=== PATIENT | male | born 1990 | race Caucasian/White ===

== ENCOUNTER 2023-11-05 09:33 | Outpatient (OUT) | payer OTHER, SELFPAY | END 2023-11-05 09:34 | disposition home or self-care (01) | LOC: SLEEP 09:35 | PROVIDERS: PCP Family Medicine; Visit Provider Family Medicine | DX: G47.33 Obstructive sleep apnea (adult) (pediatric) (principal) | CPT/HCPCS: 95806 ==

== ENCOUNTER 2023-12-25 10:48 | Outpatient (OUT) | payer OTHER, SELFPAY ==
[2023-12-25 11:34] LABS: Basophils Percent Auto 0.5 % (0.2-2.0); Eosinophils Absolute Auto 0.1 10^3/uL (0.0-0.7); Hematocrit 43.3 % (42.0-54.0); Hemoglobin 15.7 g/dL (14.0-18.0); Immature Granulocytes Abs Auto 0.02 10^3/uL (0.00-0.03); Immature Granulocytes Pct Auto 0.3 % (0.0-0.5); Lymphocytes Absolute Auto 1.9 10^3/uL (1.2-3.8); Lymphocytes Percent Auto 31.3 % (20.5-60.0); Mean Corpuscular HGB Conc 36.3 g/dL (29.9-35.2); Mean Corpuscular Hemoglobin 30.3 pg (25.9-34.0); Mean Corpuscular Volume 83.4 fL (80.0-94.0); Mean Platelet Volume 10.1 fL (9.5-13.5); Monocytes Absolute Auto 0.6 10^3/uL (0.3-0.8); Neutrophils Absolute Auto 3.5 10^3/uL (1.4-6.5); Neutrophils Percent Auto 56.9 % (43.0-75.0); Platelet Count 240 10^3/uL (150-450); Red Blood Count 5.19 10^6/uL (4.70-6.10); Red Cell Distribution Width 11.9 % (11.0-15.0); White Blood Count 6.1 10^3/uL (4.0-11.0)
[2023-12-25 12:49] LABS: Anion Gap 19.9; BUN Creatinine Ratio 8.6; Calcium 8.1 mg/dL (8.5-10.1); Carbon Dioxide 19.9 mmol/L (21.0-32.0); Chloride 98 mmol/L (98-107); Estimated GFR (African America >60 (>=60); Estimated GFR (Non-African Ame >60 (>=60); Glucose 381 mg/dL (74-106); Potassium 3.8 mmol/L (3.5-5.1); Sodium 134 mmol/L (136-145); Thyroid Stimulating Hormone 1.401 uIU/mL (0.358-3.740)
[2023-12-25 12:52] LABS: Microalbumin Urine Random <1.3 mg/dL (<=30.0)
== END 2023-12-25 10:49 | disposition home or self-care (01) ==
LOC: LAB 10:52
PROVIDERS: PCP Family Medicine; Visit Provider Family Medicine
DX: Z00.00 Encounter for general adult medical examination without abnormal findings (principal); E11.65 Type 2 diabetes mellitus with hyperglycemia; Z79.4 Long term (current) use of insulin
CPT/HCPCS: 36415; 80048; 80061; 80076; 82043; 84443; 85025

== ENCOUNTER 2023-12-30 23:17 | Inpatient (IN) | payer OTHER, SELFPAY ==
[2023-12-30 23:19] VITALS: BP 147/96; PULSE 126; O2SAT 94; BMI 47.9
[2023-12-30 23:37] VITALS: O2SAT 90
--- NOTE | 2023-12-30 23:37 | PC.NURSE ---
pt pulse ox low at 89-91% on room air. NC placed at 2L
[2023-12-30 23:39] VITALS: O2SAT 92
--- NOTE | 2023-12-30 23:41 | ED.GENADUL1 ---
HPI HPI - General Adult General Chief complaint: Abdominal Pain Stated complaint: other Time Seen by Provider: 12/30/23 23:35 Source: patient Mode of arrival: ambulance Limitations: no limitations History of Present Illness HPI narrative: patient presents complaining of abrupt onset of recurrent vomiting and diarrhea within the past hour. complains of diffuse abdominal cramping. He does not feel short of breath. Given zofran per Squad en route Onset (ago): hour(s) Related Data Home Medications ?Medication ?Instructions ?Recorded ?Confirmed aspirin 81 mg chewable tablet 1 tab PO DAILY 12/30/23 12/30/23 clomipramine 25 mg capsule 25 mg PO BEDTIME 12/30/23 12/30/23 insulin regular hum U-500 conc 500 1 - 20 unit continuous 12/30/23 12/31/23 unit/mL subcutaneous soln (Humulin subcutaneous infusion Q24H R U-500 (Concentrated) Insulin) metoprolol succinate 50 mg 50 mg PO DAILY 12/30/23 12/30/23 tablet,extended release 24 hr nabumetone 500 mg tablet 500 mg PO BID 12/30/23 12/31/23 atorvastatin 80 mg tablet 80 mg PO DAILY 12/31/23 12/31/23 fenofibrate 160 mg tablet 160 mg PO DAILY 12/31/23 12/31/23 Allergies Allergy/AdvReac Type Severity Reaction Status Date / Time No Known Drug Allergies Allergy Verified 12/30/23 23:19 Opioid HPI Opioid Management Most Recent Opioid Data: Last Pain Scale 4 12/31/23 18:55 Last Pain Assessment 12/31/23 17:52 Last MAR Pain Assessment 12/31/23 18:55 Last ORT Total Score 7 12/31/23 07:42 Last ORT Risk Category Moderate Risk 12/31/23 07:42 Ur Phencyclidine Scrn Negative (NEGATIVE) 12/31/23 05:49 Review of Systems ROS Status of ROS 10 or more systems reviewed and unremarkable except as noted in history and below [facility] Medical History High cholesterol ?E78.00 - Pure hypercholesterolemia, unspecified (ICD-10) Diabetes ?E11.9 - Type 2 diabetes mellitus without complications (ICD-10) Family History Other Family history of COPD (chronic obstructive pulmonary disease) Family history of diabetes mellitus Family history of hypertension Family history of myocardial infarction Family history of renal failure Social History Within the past year, how often did you have a drink containing alcohol: never Score interpretation: A score less than 4 is consistent with normal alcohol consumption. Known occupational exposures/hazards: No Highest level of school completed/degree received: 12th grade, no diploma Do you want help with school or training: No Exam Constitutional Vital Signs, click to edit/add: Last Vital Signs Temp 99.7 F 12/31/23 16:00 Pulse 103 H 12/31/23 17:52 Resp 20 12/31/23 16:00 BP 123/78 12/31/23 16:00 Pulse Ox 93 L 12/31/23 16:00 O2 Del Method Room Air 12/31/23 16:00 O2 Flow Rate 2 12/31/23 09:05 Common normals: no apparent distress, average body habitus, oriented x3, no limitations, healthy appearing and alert HENSC Common normals: normocephalic and head/scalp atraumatic Respiratory Common normals: normal respiratory effort, no retractions, no use of accessory muscles and clear to auscultation bilaterally Cardio Common normals: regular rate, regular rhythm, S1 normal heart sound and S2 normal heart sound GI Common normals: Normal to inspection, nondistended, normoactive bowel sounds present, soft to palpation and non-tender Extremity Common normals: normal to inspection and full ROM Neuro Common normals: oriented x3, CN's II-XII intact bilaterally, moves all extremities and no focal motor deficits Psych Appearance: grossly normal Course Vital Signs Vital signs: Vital Signs Pulse Rate 126 H 12/30/23 23:19 Respiratory Rate 17 12/30/23 23:19 Blood Pressure 147/96 H 12/30/23 23:19 Pulse Oximetry 94 L 12/30/23 23:19 Oxygen Delivery Method Room Air 12/30/23 23:19 Temperature 99.7 F 12/31/23 16:00 Pulse Rate 103 H 12/31/23 17:52 Respiratory Rate 20 12/31/23 16:00 Blood Pressure 123/78 12/31/23 16:00 Pulse Oximetry 93 L 12/31/23 16:00 Oxygen Delivery Method Room Air 12/31/23 16:00 Oxygen Delivery Flow Rate 2 12/31/23 09:05 Medical Decision Making MDM Narrative Medical decision making narrative: IDDM patient presents with acute onset of vomiting and diarrhea. Arrives to the Er via squad diaphoretic. Nausea improved initially with zofran. Patient started vomiting again and was treated with Reglan and Benadryl. He was able to relax and felt better. lactic acid elevated and he was tachycardic. lactic improved with hydration but tachycardia continues. Gastro occult neg. Influenza neg.. serial troponin neg. Patient rechecked and stated he felt somewhat better but clinically his vital signs had not improved. CTs abdomen and chest ordered and without acute findings. Labs without evidence of DKA he remains tachycardic even at rest. When he stands to use the urinal at the bed side his heart rate increases to 160s and on the monitor he appears to be in SVT. once he lays back down he returns to sinus tach 140s. HIs PH is normal Discussed with Dr Alcocer and patient accepted for admission. He is also requesting drug screen Lab Data Labs: Lab Results 12/31/23 12/31/23 12/31/23 Range/Units 00:15 00:21 00:24 WBC 11.0 (4.0-11.0) 10^3/uL RBC 6.08 (4.70-6.10) 10^6/uL Hgb 17.7 (14.0-18.0) g/dL Hct 51.7 (42.0-54.0) % MCV 85.0 (80.0-94.0) fL MCH 29.1 (25.9-34.0) pg MCHC 34.2 (29.9-35.2) g/dL RDW 11.9 (11.0-15.0) % Plt Count 235 (150-450) 10^3/uL MPV 10.0 (9.5-13.5) fL Neut % (Auto) 84.8 H (43.0-75.0) % Lymph % (Auto) 6.5 L (20.5-60.0) % [place] % (Auto) 7.3 (1.7-12.0) % Eos % (Auto) 0.7 L (0.9-7.0) % Baso % (Auto) 0.5 (0.2-2.0) % Neut # (Auto) 9.4 H (1.4-6.5) 10^3/uL Lymph # (Auto) 0.7 L (1.2-3.8) 10^3/uL [place] # (Auto) 0.8 (0.3-0.8) 10^3/uL Eos # (Auto) 0.1 (0.0-0.7) 10^3/uL Baso # (Auto) 0.1 (0.0-0.1) 10^3/uL Abs Immat Gran (auto) 0.02 (0.00-0.03) 10^3/uL Imm/Tot Granulo (auto) 0.2 (0.0-0.5) % VBG pH (7.330-7.430) VBG pCO2 (40.0-52.0) mmHg Sodium 137 (136-145) mmol/L Potassium 3.9 (3.5-5.1) mmol/L Chloride 99 (98-107) mmol/L Carbon Dioxide 25.2 (21.0-32.0) mmol/L Anion Gap 16.7 BUN 15.0 (7.0-18.0) mg/dL Creatinine 0.99 (0.70-1.30) mg/dL Est GFR ( Amer) >60 (>=60) Est GFR (Non-Af Amer) >60 (>=60) BUN/Creatinine Ratio 15.2 Glucose 349 H (74-106) mg/dL Lactate 2.6 H* (0.4-2.0) mmol/L Calcium 9.1 (8.5-10.1) mg/dL Total Bilirubin 0.6 (0.2-1.0) mg/dL AST 11 L (15-37) U/L ALT 32 (16-63) U/L Alkaline Phosphatase 97 (46-116) U/L Troponin I High Sens <4.0 L (4.0-76.1) pg/mL NT-Pro-B Natriuret Pep (<=450.0) pg/mL Total Protein 6.9 (6.4-8.2) g/dL Albumin 3.7 (3.4-5.0) g/dL Globulin 3.2 g/dL Albumin/Globulin Ratio 1.2 Lipase 26.0 (16.0-77.0) U/L Thyroxine (T4) (4.50-12.10) ug/dL Urine Color (YELLOW) Urine Clarity (CLEAR) Urine pH (5.0-9.0) Ur Specific [place] (1.005-1.025) Urine Protein (NEG/TRACE) mg/dL Urine Glucose (UA) (NEGATIVE) mg/dL Urine Ketones (NEGATIVE) mg/dL Urine Occult Blood (NEGATIVE) Urine Nitrite (NEGATIVE) Urine Bilirubin (NEGATIVE) Urine Urobilinogen (0.2-1.0) EU/dL Ur Leukocyte Esterase (NEGATIVE) Gastric Fluid pH 4 Gastric Occult Blood Negative Urine Opiates Screen (NEGATIVE) Ur Buprenorphine Scrn (NEGATIVE) Ur Oxycodone Screen (NEGATIVE) Urine Methadone Screen (NEGATIVE) Ur Barbiturates Screen (NEGATIVE) U Tricyclic Antidepress (NEGATIVE) Ur Phencyclidine Scrn (NEGATIVE) Ur Amphetamines Screen (NEGATIVE) U Methamphetamines Scrn (NEGATIVE) U Benzodiazepines Scrn (NEGATIVE) Urine Cocaine Screen (NEGATIVE) U Cannabinoids Screen (NEGATIVE) Influenza Type A Ag Negative Influenza Type B Ag Negative POC Glucose (74-106) mg/dL 12/31/23 12/31/23 12/31/23 Range/Units 03:39 03:44 04:22 WBC (4.0-11.0) 10^3/uL RBC (4.70-6.10) 10^6/uL Hgb (14.0-18.0) g/dL Hct (42.0-54.0) % MCV (80.0-94.0) fL MCH (25.9-34.0) pg MCHC (29.9-35.2) g/dL RDW (11.0-15.0) % Plt Count (150-450) 10^3/uL MPV (9.5-13.5) fL Neut % (Auto) (43.0-75.0) % Lymph % (Auto) (20.5-60.0) % [place] % (Auto) (1.7-12.0) % Eos % (Auto) (0.9-7.0) % Baso % (Auto) (0.2-2.0) % Neut # (Auto) (1.4-6.5) 10^3/uL Lymph # (Auto) (1.2-3.8) 10^3/uL [place] # (Auto) (0.3-0.8) 10^3/uL Eos # (Auto) (0.0-0.7) 10^3/uL Baso # (Auto) (0.0-0.1) 10^3/uL Abs Immat Gran (auto) (0.00-0.03) 10^3/uL Imm/Tot Granulo (auto) (0.0-0.5) % VBG pH (7.330-7.430) VBG pCO2 (40.0-52.0) mmHg Sodium (136-145) mmol/L Potassium (3.5-5.1) mmol/L Chloride (98-107) mmol/L Carbon Dioxide (21.0-32.0) mmol/L Anion Gap BUN (7.0-18.0) mg/dL Creatinine (0.70-1.30) mg/dL Est GFR ( Amer) (>=60) Est GFR (Non-Af Amer) (>=60) BUN/Creatinine Ratio Glucose (74-106) mg/dL Lactate 1.5 (0.4-2.0) mmol/L Calcium (8.5-10.1) mg/dL Total Bilirubin (0.2-1.0) mg/dL AST (15-37) U/L ALT (16-63) U/L Alkaline Phosphatase (46-116) U/L Troponin I High Sens 5.2 (4.0-76.1) pg/mL NT-Pro-B Natriuret Pep (<=450.0) pg/mL Total Protein (6.4-8.2) g/dL Albumin (3.4-5.0) g/dL Globulin g/dL Albumin/Globulin Ratio Lipase (16.0-77.0) U/L Thyroxine (T4) (4.50-12.10) ug/dL Urine Color (YELLOW) Urine Clarity (CLEAR) Urine pH (5.0-9.0) Ur Specific [place] (1.005-1.025) Urine Protein (NEG/TRACE) mg/dL Urine Glucose (UA) (NEGATIVE) mg/dL Urine Ketones (NEGATIVE) mg/dL Urine Occult Blood (NEGATIVE) Urine Nitrite (NEGATIVE) Urine Bilirubin (NEGATIVE) Urine Urobilinogen (0.2-1.0) EU/dL Ur Leukocyte Esterase (NEGATIVE) Gastric Fluid pH Gastric Occult Blood Urine Opiates Screen (NEGATIVE) Ur Buprenorphine Scrn (NEGATIVE) Ur Oxycodone Screen (NEGATIVE) Urine Methadone Screen (NEGATIVE) Ur Barbiturates Screen (NEGATIVE) U Tricyclic Antidepress (NEGATIVE) Ur Phencyclidine Scrn (NEGATIVE) Ur Amphetamines Screen (NEGATIVE) U Methamphetamines Scrn (NEGATIVE) U Benzodiazepines Scrn (NEGATIVE) Urine Cocaine Screen (NEGATIVE) U Cannabinoids Screen (NEGATIVE) Influenza Type A Ag Influenza Type B Ag POC Glucose 394 H (74-106) mg/dL 12/31/23 12/31/23 12/31/23 Range/Units 05:40 05:42 05:49 WBC (4.0-11.0) 10^3/uL RBC (4.70-6.10) 10^6/uL Hgb (14.0-18.0) g/dL Hct (42.0-54.0) % MCV (80.0-94.0) fL MCH (25.9-34.0) pg MCHC (29.9-35.2) g/dL RDW (11.0-15.0) % Plt Count (150-450) 10^3/uL MPV (9.5-13.5) fL Neut % (Auto) (43.0-75.0) % Lymph % (Auto) (20.5-60.0) % [place] % (Auto) (1.7-12.0) % Eos % (Auto) (0.9-7.0) % Baso % (Auto) (0.2-2.0) % Neut # (Auto) (1.4-6.5) 10^3/uL Lymph # (Auto) (1.2-3.8) 10^3/uL [place] # (Auto) (0.3-0.8) 10^3/uL Eos # (Auto) (0.0-0.7) 10^3/uL Baso # (Auto) (0.0-0.1) 10^3/uL Abs Immat Gran (auto) (0.00-0.03) 10^3/uL Imm/Tot Granulo (auto) (0.0-0.5) % VBG pH 7.352 (7.330-7.430) VBG pCO2 44.4 (40.0-52.0) mmHg Sodium (136-145) mmol/L Potassium (3.5-5.1) mmol/L Chloride (98-107) mmol/L Carbon Dioxide (21.0-32.0) mmol/L Anion Gap BUN (7.0-18.0) mg/dL Creatinine (0.70-1.30) mg/dL Est GFR ( Amer) (>=60) Est GFR (Non-Af Amer) (>=60) BUN/Creatinine Ratio Glucose (74-106) mg/dL Lactate (0.4-2.0) mmol/L Calcium (8.5-10.1) mg/dL Total Bilirubin (0.2-1.0) mg/dL AST (15-37) U/L ALT (16-63) U/L Alkaline Phosphatase (46-116) U/L Troponin I High Sens 4.7 (4.0-76.1) pg/mL NT-Pro-B Natriuret Pep 24.0 (<=450.0) pg/mL Total Protein (6.4-8.2) g/dL Albumin (3.4-5.0) g/dL Globulin g/dL Albumin/Globulin Ratio Lipase (16.0-77.0) U/L Thyroxine (T4) 6.40 (4.50-12.10) ug/dL Urine Color Lt. yellow (YELLOW) Urine Clarity Clear (CLEAR) Urine pH 5.0 (5.0-9.0) Ur Specific [place] 1.010 (1.005-1.025) Urine Protein Negative (NEG/TRACE) mg/dL Urine Glucose (UA) >=1000 A (NEGATIVE) mg/dL Urine Ketones 40 A (NEGATIVE) mg/dL Urine Occult Blood Negative (NEGATIVE) Urine Nitrite Negative (NEGATIVE) Urine Bilirubin Negative (NEGATIVE) Urine Urobilinogen 0.2 (0.2-1.0) EU/dL Ur Leukocyte Esterase Negative (NEGATIVE) Gastric Fluid pH Gastric Occult Blood Urine Opiates Screen Negative (NEGATIVE) Ur Buprenorphine Scrn Negative (NEGATIVE) Ur Oxycodone Screen Negative (NEGATIVE) Urine Methadone Screen Negative (NEGATIVE) Ur Barbiturates Screen Negative (NEGATIVE) U Tricyclic Antidepress Negative (NEGATIVE) Ur Phencyclidine Scrn Negative (NEGATIVE) Ur Amphetamines Screen Negative (NEGATIVE) U Methamphetamines Scrn Negative (NEGATIVE) U Benzodiazepines Scrn Negative (NEGATIVE) Urine Cocaine Screen Negative (NEGATIVE) U Cannabinoids Screen Negative (NEGATIVE) Influenza Type A Ag Influenza Type B Ag POC Glucose (74-106) mg/dL 12/31/23 12/31/23 12/31/23 Range/Units 09:31 11:20 11:29 WBC (4.0-11.0) 10^3/uL RBC (4.70-6.10) 10^6/uL Hgb (14.0-18.0) g/dL Hct (42.0-54.0) % MCV (80.0-94.0) fL MCH (25.9-34.0) pg MCHC (29.9-35.2) g/dL RDW (11.0-15.0) % Plt Count (150-450) 10^3/uL MPV (9.5-13.5) fL Neut % (Auto) (43.0-75.0) % Lymph % (Auto) (20.5-60.0) % [place] % (Auto) (1.7-12.0) % Eos % (Auto) (0.9-7.0) % Baso % (Auto) (0.2-2.0) % Neut # (Auto) (1.4-6.5) 10^3/uL Lymph # (Auto) (1.2-3.8) 10^3/uL [place] # (Auto) (0.3-0.8) 10^3/uL Eos # (Auto) (0.0-0.7) 10^3/uL Baso # (Auto) (0.0-0.1) 10^3/uL Abs Immat Gran (auto) (0.00-0.03) 10^3/uL Imm/Tot Granulo (auto) (0.0-0.5) % VBG pH (7.330-7.430) VBG pCO2 (40.0-52.0) mmHg Sodium (136-145) mmol/L Potassium (3.5-5.1) mmol/L Chloride (98-107) mmol/L Carbon Dioxide (21.0-32.0) mmol/L Anion Gap BUN (7.0-18.0) mg/dL Creatinine (0.70-1.30) mg/dL Est GFR ( Amer) (>=60) Est GFR (Non-Af Amer) (>=60) BUN/Creatinine Ratio Glucose (74-106) mg/dL Lactate (0.4-2.0) mmol/L Calcium (8.5-10.1) mg/dL Total Bilirubin (0.2-1.0) mg/dL AST (15-37) U/L ALT (16-63) U/L Alkaline Phosphatase (46-116) U/L Troponin I High Sens 4.8 (4.0-76.1) pg/mL NT-Pro-B Natriuret Pep (<=450.0) pg/mL Total Protein (6.4-8.2) g/dL Albumin (3.4-5.0) g/dL Globulin g/dL Albumin/Globulin Ratio Lipase (16.0-77.0) U/L Thyroxine (T4) (4.50-12.10) ug/dL Urine Color (YELLOW) Urine Clarity (CLEAR) Urine pH (5.0-9.0) Ur Specific [place] (1.005-1.025) Urine Protein (NEG/TRACE) mg/dL Urine Glucose (UA) (NEGATIVE) mg/dL Urine Ketones (NEGATIVE) mg/dL Urine Occult Blood (NEGATIVE) Urine Nitrite (NEGATIVE) Urine Bilirubin (NEGATIVE) Urine Urobilinogen (0.2-1.0) EU/dL Ur Leukocyte Esterase (NEGATIVE) Gastric Fluid pH Gastric Occult Blood Urine Opiates Screen (NEGATIVE) Ur Buprenorphine Scrn (NEGATIVE) Ur Oxycodone Screen (NEGATIVE) Urine Methadone Screen (NEGATIVE) Ur Barbiturates Screen (NEGATIVE) U Tricyclic Antidepress (NEGATIVE) Ur Phencyclidine Scrn (NEGATIVE) Ur Amphetamines Screen (NEGATIVE) U Methamphetamines Scrn (NEGATIVE) U Benzodiazepines Scrn (NEGATIVE) Urine Cocaine Screen (NEGATIVE) U Cannabinoids Screen (NEGATIVE) Influenza Type A Ag Influenza Type B Ag POC Glucose 328 H 334 H (74-106) mg/dL Imaging Data CT scan - abdomen: Radiologist's impression: ITS Impressions Chest X-Ray 12/31/23 00:30 IMPRESSION: No acute abnormality. Electronically authenticated by: ARLETH ORTIZ Date: 12/31/2023 02:16 Abdomen/Pelvis CTA 12/31/23 04:20 IMPRESSION: Negative study. Electronically authenticated by: ARLETH ORTIZ Date: 12/31/2023 05:22 Chest CTA 12/31/23 04:20 IMPRESSION: Negative study. Electronically authenticated by: ARLETH ORTIZ Date: 12/31/2023 05:22 Critical Care Time Critical Care Time Total Critical Care Time: 60 Discharge Plan Discharge Chief Complaint: Abdominal Pain Clinical Impression: Gastroenteritis, Tachycardia, Hyperglycemia Patient Disposition: Admitted as Observation Discharge Date/Time: 12/31/23 07:25
[2023-12-30] MEDS: 0.9 % SODIUM CHLORIDE 1,000 ML 999 ML IV (23:49)
[2023-12-31] VITALS (47 sets, daily range): BP systolic 94–134; BP diastolic 60–84; PULSE 55–143; TEMP 36.6–37.8; O2SAT 89–97; BMI 49.0
--- NOTE | 2023-12-31 00:20 | PC.NURSE ---
gastric cult obtained, pt diaphoretic and placed a cool wash cloth on forehead
[2023-12-31] MEDS: DIPHENHYDRAMINE HCL 50 MG/ML (1ML) VIAL IV (00:25)
[2023-12-31] MEDS: METOCLOPRAMIDE HCL 10 MG/2 ML VIAL IVP (00:25)
--- NOTE | 2023-12-31 00:30 | XR_ITS ---
The [address] [address] Patient Name: KEYANA ZAMARRIPA MRN: [id number] date: 1990 Sex: M Assigned Patient Location: ER Current Patient Location: ER Accession/Order Number: [id number] Exam Date: 12/31/2023 01:00 Report Date: 12/31/2023 02:16 At the request of: DIAN SALOMON Procedure: XR chest 2V CLINICAL HISTORY: Short of breath. COMPARISON: None. FINDINGS: PA and lateral views of the chest obtained. Cardiomediastinal silhouette is normal. Lungs are clear, no evidence of infiltrate or pleural effusion. No suspicious nodule or mass. No evidence of pneumothorax. No acute bony abnormality. XR/XR chest 2V IMPRESSION: No acute abnormality. Electronically authenticated by: ARLETH ORTIZ Date: 12/31/2023 02:16
[2023-12-31 00:41] LABS: Internal Control Within Normal Limits; Occult Blood Gastric Fluid NEGATIVE; pH Gastric Fluid 4
[2023-12-31 00:43] LABS: Basophils Absolute Auto 0.1 10^3/uL (0.0-0.1); Basophils Percent Auto 0.5 % (0.2-2.0); Eosinophils Absolute Auto 0.1 10^3/uL (0.0-0.7); Eosinophils Percent Auto 0.7 % (0.9-7.0); Hematocrit 51.7 % (42.0-54.0); Hemoglobin 17.7 g/dL (14.0-18.0); Immature Granulocytes Abs Auto 0.02 10^3/uL (0.00-0.03); Immature Granulocytes Pct Auto 0.2 % (0.0-0.5); Lymphocytes Absolute Auto 0.7 10^3/uL (1.2-3.8); Lymphocytes Percent Auto 6.5 % (20.5-60.0); Mean Corpuscular HGB Conc 34.2 g/dL (29.9-35.2); Mean Corpuscular Hemoglobin 29.1 pg (25.9-34.0); Monocytes Absolute Auto 0.8 10^3/uL (0.3-0.8); Monocytes Percent Auto 7.3 % (1.7-12.0); Neutrophils Absolute Auto 9.4 10^3/uL (1.4-6.5); Neutrophils Percent Auto 84.8 % (43.0-75.0); Platelet Count 235 10^3/uL (150-450); Red Blood Count 6.08 10^6/uL (4.70-6.10); Red Cell Distribution Width 11.9 % (11.0-15.0)
--- NOTE | 2023-12-31 00:50 | ECG_ITS ---
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
[2023-12-31 01:04] LABS: Influenza Virus A Antigen Negative; Influenza Virus B Antigen Negative; Internal Control Within Normal Limits
[2023-12-31 01:06] LABS: Alanine Aminotransferase 32 U/L (16-63); Albumin Globulin Ratio 1.2; Albumin Level 3.7 g/dL (3.4-5.0); Alkaline Phosphatase 97 U/L (46-116); Anion Gap 16.7; Aspartate Amino Transferase 11 U/L (15-37); BUN Creatinine Ratio 15.2; Bilirubin Total 0.6 mg/dL (0.2-1.0); Calcium 9.1 mg/dL (8.5-10.1); Carbon Dioxide 25.2 mmol/L (21.0-32.0); Chloride 99 mmol/L (98-107); Estimated GFR (African America >60 (>=60); Estimated GFR (Non-African Ame >60 (>=60); Globulin 3.2 g/dL; Glucose 349 mg/dL (74-106); Potassium 3.9 mmol/L (3.5-5.1); Sodium 137 mmol/L (136-145); Total Protein 6.9 g/dL (6.4-8.2); Troponin I High Sensitivity <4.0 pg/mL (4.0-76.1)
[2023-12-31 01:07] LABS: Lactate/Lactic Acid 2.6 mmol/L (0.4-2.0)
[2023-12-31] MEDS: 0.9 % SODIUM CHLORIDE 1,000 ML 999 ML IV ×3 (01:42→06:27)
--- NOTE | 2023-12-31 02:48 | PC.NURSE ---
O2 turned off and will continue to monitor
[2023-12-31 03:45] LABS: Glucometer 394 mg/dL (74-106)
[2023-12-31 04:06] LABS: Lactate/Lactic Acid 1.5 mmol/L (0.4-2.0)
--- NOTE | 2023-12-31 04:20 | CT_ITS ---
The [address] [address] Patient Name: KEYANA ZAMARRIPA MRN: [id number] date: 1990 Sex: M Assigned Patient Location: ED.MAIN Current Patient Location: ER Accession/Order Number: [id number] Exam Date: 12/31/2023 04:30 Report Date: 12/31/2023 05:22 At the request of: DIAN SALOMON Procedure: CT angio abdomen pelvis .EXAM: CT angio chest, CT angio abdomen pelvis HISTORY: Short of breath. COMPARISON: Chest radiograph, today. TECHNIQUE: CTA of the chest, abdomen and pelvis with IV contrast. FINDINGS: There is no axillary or mediastinal thoracic lymphadenopathy. Normal heart size. Aorta is normal in course and caliber. No filling defects in the pulmonary arteries. Lungs are clear. No infiltrate or effusion. No suspicious pulmonary nodule. No adrenal mass or retroperitoneal lymphadenopathy. No obstructive uropathy. Renal enhancement is symmetrical. The abdominal aorta is normal in course and caliber. SMA, NAEL, celiac arteries are patent. Renal arteries are patent. No bowel obstruction or inflammation. No pneumatosis or pneumoperitoneum. Normal appendix. No pelvic adenopathy or ascites. Prostate and bladder are age-appropriate. Thoracic and lumbar alignment is normal. No significant degenerative changes. CT/CT angio abdomen pelvis IMPRESSION: Negative study. Electronically authenticated by: ARLETH ORTIZ Date: 12/31/2023 05:22
--- NOTE | 2023-12-31 04:20 | CT_ITS ---
The [address] [address] Patient Name: KEYANA ZAMARRIPA MRN: [id number] date: 1990 Sex: M Assigned Patient Location: ED.MAIN Current Patient Location: ER Accession/Order Number: [id number] Exam Date: 12/31/2023 04:30 Report Date: 12/31/2023 05:22 At the request of: DIAN SALOMON Procedure: CT angio chest .EXAM: CT angio chest, CT angio abdomen pelvis HISTORY: Short of breath. COMPARISON: Chest radiograph, today. TECHNIQUE: CTA of the chest, abdomen and pelvis with IV contrast. FINDINGS: There is no axillary or mediastinal thoracic lymphadenopathy. Normal heart size. Aorta is normal in course and caliber. No filling defects in the pulmonary arteries. Lungs are clear. No infiltrate or effusion. No suspicious pulmonary nodule. No adrenal mass or retroperitoneal lymphadenopathy. No obstructive uropathy. Renal enhancement is symmetrical. The abdominal aorta is normal in course and caliber. SMA, NAEL, celiac arteries are patent. Renal arteries are patent. No bowel obstruction or inflammation. No pneumatosis or pneumoperitoneum. Normal appendix. No pelvic adenopathy or ascites. Prostate and bladder are age-appropriate. Thoracic and lumbar alignment is normal. No significant degenerative changes. CT/CT angio chest IMPRESSION: Negative study. Electronically authenticated by: ARLETH ORTIZ Date: 12/31/2023 05:22
[2023-12-31 04:45] LABS: Troponin I High Sensitivity 5.2 pg/mL (4.0-76.1)
--- NOTE | 2023-12-31 05:50 | ECG_ITS ---
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
[2023-12-31 05:55] LABS: PCO2 VBG 44.4 mmHg (40.0-52.0); pH VBG 7.352 (7.330-7.430)
[2023-12-31 06:09] LABS: Bilirubin Urine NEGATIVE (NEGATIVE); Blood Urine NEGATIVE (NEGATIVE); Clarity Urine CLEAR (CLEAR); Color Urine LT. YELLOW (YELLOW); Glucose Urine UA >=1000 mg/dL (NEGATIVE); Ketones Urine 40 mg/dL (NEGATIVE); Leukocyte Esterase Urine NEGATIVE (NEGATIVE); Nitrite Urine NEGATIVE (NEGATIVE); Protein Urine NEGATIVE (NEG/TRACE); Urobilinogen Urine 0.2 EU/dL (0.2-1.0)
[2023-12-31 06:13] LABS: Urine Microscopic Indicated NO
[2023-12-31 06:19] LABS: Amphetamine Screen Urine NEGATIVE (NEGATIVE); Barbiturates Screen Urine NEGATIVE (NEGATIVE); Benzodiazepines Screen Urine NEGATIVE (NEGATIVE); Buprenorphine Screen Urine NEGATIVE (NEGATIVE); Cannabinoid Screen Urine NEGATIVE (NEGATIVE); Cocaine Screen Urine NEGATIVE (NEGATIVE); Methadone Screen Urine NEGATIVE (NEGATIVE); Methamphetamines Screen Urine NEGATIVE (NEGATIVE); Opiate Screen Urine NEGATIVE (NEGATIVE); Oxycodone Screen Urine NEGATIVE (NEGATIVE); Phencyclidine Screen Urine NEGATIVE (NEGATIVE); Tricyclic Antidepressant Urine NEGATIVE (NEGATIVE)
[2023-12-31 09:02] LABS: Troponin I High Sensitivity 4.7 pg/mL (4.0-76.1)
[2023-12-31] MEDS: LEVOFLOXACIN IN DEXTROSE 5 % 750 MG/150 ML IV.SOLN 100 MG IV (09:17)
[2023-12-31] MEDS: 0.9 % SODIUM CHLORIDE 1,000 ML 125 ML IV ×3 (09:17→23:53)
[2023-12-31 09:32] LABS: Glucometer 328 mg/dL (74-106)
[2023-12-31] MEDS: INSULIN ASPART 300 UNIT/3 ML PEN SUBQ ×3 (09:39→16:39)
--- NOTE | 2023-12-31 10:07 | CA_ITS ---
Patient Name: KEYANA ZAMARRIPA MR#: [id number] : 1990 Exam Date: 12/31/2023 Ordering Doctor: DR GAUTAM CARDONA . ECHOCARDIOGRAM REPORT PROCEDURE: CA ECHO DOPPLER COMPLETE INDICATIONS: Tachycardia COMPARISON: None. DESCRIPTION: COMPLETE ECHOCARDIOGRAM Real-time transthoracic echocardiography with 2D, M-mode, spectral and color flow Doppler performed. QUALITY: Technical quality was adequate. LEFT VENTRICLE: Normal chamber size. Mild concentric left ventricular hypertrophy. Global left ventricular systolic function is normal. LV EF: Visual estimation of left ventricular ejection fraction is 65%. DIASTOLIC: Normal diastolic function. ATRIAL SEPTUM: LEFT ATRIUM: Normal chamber size. RIGHT ATRIUM: Mild dilatation. RIGHT VENTRICLE: Normal chamber size. Normal right ventricular systolic function. TRICUSPID VALVE: Normal mobility and thickness. No stenosis with trivial regurgitation. No evidence of pulmonary hypertension. RVSP 31 mmHg MITRAL VALVE: Normal mobility and thickness. No evidence of mitral valve stenosis. There is no mitral annular calcification. Trivial mitral regurgitation. AORTIC VALVE: Normal trileaflet appearance. No visible sclerosis. Normal leaflet mobility. No evidence of aortic valve stenosis. No aortic regurgitation. AORTIC ROOT: Normal diameter and appearance. PULMONIC VALVE: Normal thickness and mobility. Normal with No regurgitation. PERICARDIUM: No evidence of pericardial effusion. IVC: Collapses with inspirations. Normal size. PLEURA: CONCLUSION: 1. Mild concentric left ventricular hypertrophy with normal systolic function. LVEF is estimated at 65%. 2. Normal right ventricular size and systolic function. 3. Normal diastolic function. 4. No significant valvular dysfunction. 5. Normal right-sided pressures. Adult Echocardiography Procedure Report Left Ventricle LVEDD (3.7 - 5.6 cm): 4.72 cm LVESD (2.2 - 4.0 cm): 3.01 cm LVIVS thickness (0.6 - 1.2 cm): 1.29 cm LVPW thickness (0.5 - 1.0 cm): 1.41 cm e': 0.13 m/s E - e': 7.03 LVOT Max Gradient: 5.14 mm[Hg], 5.73 mm[Hg], 5.14 mm[Hg] LVOT Area (cm2): 1.15 m/s Peak Velocity (LVOT): 1.13 m/s, 1.20 m/s, 1.13 m/s Mean Velocity (LVOT): 0.83 m/s LVOT Diameter 2.12 cm Left Ventricular Ejection Fraction: 65 % Left Atrium LA Volume Index (2D A2C): 17.15 ml/m2 Left Atrium Systolic Dimension: 3.83 cm Mitral Valve MV E to A Ratio: 1.19 Mitral Valve A-Wave Peak Velocity: 0.78 m/s Mitral Valve E-Wave Peak Velocity: 0.92 m/s Right Ventricle RV Internal Diastolic Dimension: 3.73 cm Aorta AO Root Diam: 3.34 cm Ascending Ao Diam: 3.04 cm Aortic Valve AoV Area (Peak Colin): 3.24 cm2, 3.43 cm2, 3.24 cm2, 3.07 cm2 AoV Area (VTI): 3.05 cm2, 3.34 cm2, 3.20 cm2, 2.65 cm2 Peak Velocity(Antegrade Flow): 1.16 m/s, 1.30 m/s, 1.30 m/s Peak Gradient(Antegrade Flow): 5.38 mm[Hg], 6.72 mm[Hg], 6.72 mm[Hg] Mean Velocity(Antegrade Flow): 0.90 m/s, 0.91 m/s, 0.93 m/s Mean Gradient(Antegrade Flow): 3.50 mm[Hg], 3.68 mm[Hg], 3.83 mm[Hg] Velocity Time Integral: 20.04 cm, 21.05 cm, 22.74 cm Tricuspid Valve Peak Velocity (Regurgitant Flow): 1.87 m/s, 2.65 m/s Pulmonic Valve Mean Gradient: 3.96 mm[Hg], 4.26 mm[Hg], 4.02 mm[Hg] Mean Velocity: 0.93 m/s, 0.97 m/s, 0.94 m/s Peak Velocity: 1.35 m/s Peak Gradient: 7.33 mm[Hg], 7.81 mm[Hg], 6.88 mm[Hg] Right Atrium Right Atrium Systolic Pressure: 47.64 ml, 47.64 ml Dictated by: Hugh Samuel M.D. on 12/31/2023 at 18:56 Approved by: Hugh Samuel M.D. on 12/31/2023 at 18:59
--- NOTE | 2023-12-31 10:08 | P.HP_ITS ---
HPI H&P: HPI History of Present Illness Chief complaint: other Narrative: Patient presented to the emergency room with increasing weakness and some dyspnea, palpitations. In ER found to have sinus tachycardia, workup done extensively did not really show any etiology of the reviewed mild dehydration secondary to uncontrolled diabetes mellitus. When I saw the patient up in the intensive care unit, very lethargic, arousable and answers questions appropriately. Denies any other URI symptoms. States has been eating well up until last evening when the symptoms started. On laboratory evaluation does have a left shift in his CBC. Opioid HPI Opioid Management Most Recent Opioid Data: Last Pain Scale 7 12/31/23 11:27 Last Pain Assessment 12/31/23 11:00 Last MAR Pain Assessment 12/31/23 11:27 Last ORT Total Score 7 12/31/23 07:42 Last ORT Risk Category Moderate Risk 12/31/23 07:42 Ur Phencyclidine Scrn Negative (NEGATIVE) 12/31/23 05:49 Review of Systems ROS Status of ROS 10 or more systems reviewed and unremark able except as noted in history and below [facility] Medical History High cholesterol ?E78.00 - Pure hypercholesterolemia, unspecified (ICD-10) Diabetes ?E11.9 - Type 2 diabetes mellitus without complications (ICD-10) Family History (Updated 12/31/23 @ 08:26 by Mary Grant RN) Other Family history of COPD (chronic obstructive pulmonary disease) Family history of diabetes mellitus Family history of hypertension Family history of myocardial infarction Family history of renal failure Social History (Updated 12/31/23 @ 08:25 by Mary Grant RN) Within the past year, how often did you have a drink containing alcohol: never Score interpretation: A score less than 4 is consistent with normal alcohol consumption. Known occupational exposures/hazards: No Highest level of school completed/degree received: 12th grade, no diploma Do you want help with school or training: No Meds Home Medications and Allergies Home Medications ?Medication ?Instructions ?Recorded ?Confirmed ?Type aspirin 81 mg chewable tablet 1 tab PO DAILY 12/30/23 12/30/23 History clomipramine 25 mg capsule 25 mg PO BEDTIME 12/30/23 12/30/23 History insulin regular hum U-500 conc 500 1 - 20 unit continuous 12/30/23 12/31/23 History unit/mL subcutaneous soln (Humulin subcutaneous infusion Q24H R U-500 (Concentrated) Insulin) metoprolol succinate 50 mg 50 mg PO DAILY 12/30/23 12/30/23 History tablet,extended release 24 hr nabumetone 500 mg tablet 500 mg PO BID 12/30/23 12/31/23 History atorvastatin 80 mg tablet 80 mg PO DAILY 12/31/23 12/31/23 History fenofibrate 160 mg tablet 160 mg PO DAILY 12/31/23 12/31/23 History Allergies Allergy/AdvReac Type Severity Reaction Status Date / Time No Known Drug Allergies Allergy Verified 12/30/23 23:19 Exam Constitutional Vital Signs, click to edit/add: Last Vital Signs Temp 100.0 F 12/31/23 07:42 Pulse 136 H 12/31/23 10:00 Resp 24 H 12/31/23 09:05 BP 134/83 12/31/23 10:00 Pulse Ox 97 12/31/23 10:00 O2 Del Method Nasal Cannula 12/31/23 07:42 O2 Flow Rate 2 12/31/23 09:05 Documenting provider has reviewed patient's vital signs: yes Common normals: apparent distress (Lethargic and somewhat respiratory distress) Chest Common normals: inspection of chest normal Respiratory Common normals: no retractions and clear to auscultation bilaterally; abnormal respiratory effort Cardio Common normals: regular rhythm; irregular rate Rate: tachycardic GI Common normals: Normal to inspection, nondistended, normoactive bowel sounds present and soft to palpation Extremity Common normals: normal to inspection and normal capillary refill Results Labs Labs: Short CBC 12/31/23 Range/Units 00:21 WBC 11.0 (4.0-11.0) 10^3/uL Hgb 17.7 (14.0-18.0) g/dL Hct 51.7 (42.0-54.0) % Plt Count 235 (150-450) 10^3/uL BMP 12/31/23 00:21 Sodium 137 Potassium 3.9 Chloride 99 Carbon Dioxide 25.2 BUN 15.0 Creatinine 0.99 Glucose 349 H Calcium 9.1 Liver Function 12/31/23 Range/Units 00:21 Total Bilirubin 0.6 (0.2-1.0) mg/dL AST 11 L (15-37) U/L ALT 32 (16-63) U/L Alkaline Phosphatase 97 (46-116) U/L Albumin 3.7 (3.4-5.0) g/dL Urine 12/31/23 Range/Units 05:49 Urine Color Lt. yellow (YELLOW) Urine Clarity Clear (CLEAR) Urine pH 5.0 (5.0-9.0) Ur Specific [place] 1.010 (1.005-1.025) Urine Protein Negative (NEG/TRACE) mg/dL Urine Glucose (UA) >=1000 A (NEGATIVE) mg/dL ABG ABG results: 12/31/23 05:40 VBG pH 7.352 VBG pCO2 44.4 Assessment and Plan Assessment and Plan (1) Hyperglycemia: (2) Tachycardia: Plan Low-grade fever, sinus tachycardia, respiratory distress, labile hypertension, positive lactate secondary to possible infectious etiology. Will see how symptoms progressed throughout the course of the day today. Due to the risk of proceeding to sepsis we will start with antibiotics. Has been also given fluid boluses of 4 L so far. CTA abdomen pelvis and chest all normal. Patient has a history of tachycardia, sees an software quality specialist for that. Will consult to cardiology, check echocardiogram, troponins and BNP are negative. Urine drug screen negative Significant tachycardia, unresolving with hydration, likely etiology is dehydration, infectious, SVT. Patient likely 3 to 4-day hospital stay as workup continues. Inpatient status.
--- NOTE | 2023-12-31 10:25 | CM.NOTE ---
Rounds made with Dr. Alcocer, no discharge today. Discussed reason for admission and treatments.
[2023-12-31] MEDS: DILTIAZEM HCL 25 MG/5 ML VIAL 20 MG IV (10:44)
[2023-12-31] MEDS: dilTIAZem HCL 125 MG in 0.9 % SODIUM CHLORIDE 100 ML 10 MG IV (11:25)
[2023-12-31] MEDS: ACETAMINOPHEN 500 MG TABLET 1000 MG PO ×2 (11:27→18:10)
[2023-12-31 11:31] LABS: Glucometer 334 mg/dL (74-106)
[2023-12-31 11:41] LABS: Troponin I High Sensitivity 4.8 pg/mL (4.0-76.1)
--- NOTE | 2023-12-31 12:29 | P.CACN_ITS ---
History of Present Illness History of Present Illness Consult date: 12/31/23 Requesting physician: Layton Alcocer Chief complaint: other Narrative: 33 yr old with PMH of IDDM was admitted to ED with acute onset of vomiting and diarrhea. Work up revealed lactic acid was elevated and he was tachycardic. He ws treated for hyperosmolar non ketosis and his lactic improved with hydration but tachycardia continues. Gastro occult neg. Influenza neg. serial troponin ne g. CTs abdomen and chest revealed no acute findings. Labs without evidence of DKA He remains tachycardic even at rest. When he stands to use the urinal at the bed side his heart rate increases to 160s and on the monitor he appears to be in long RP tachycardia. He juliet since been admitted and his HR is in 110-120. He has been offered IVF. EKG: reveals Sinus tachycardia. Tele: ST Review of Systems ROS Status of ROS 10 or more systems reviewed and unremark able except as noted in history and below [facility] Medical History High cholesterol ?E78.00 - Pure hypercholesterolemia, unspecified (ICD-10) Diabetes ?E11.9 - Type 2 diabetes mellitus without complications (ICD-10) Family History Other Family history of COPD (chronic obstructive pulmonary disease) Family history of diabetes mellitus Family history of hypertension Family history of myocardial infarction Family history of renal failure Social History Within the past year, how often did you have a drink containing alcohol: never Score interpretation: A score less than 4 is consistent with normal alcohol consumption. Known occupational exposures/hazards: No Highest level of school completed/degree received: 12th grade, no diploma Do you want help with school or training: No Meds Home Medications and Allergies Home Medications ?Medication ?Instructions ?Recorded ?Confirmed ?Type aspirin 81 mg chewable tablet 1 tab PO DAILY 12/30/23 12/30/23 History clomipramine 25 mg capsule 25 mg PO BEDTIME 12/30/23 12/30/23 History insulin regular hum U-500 conc 500 1 - 20 unit continuous 12/30/23 12/31/23 History unit/mL subcutaneous soln (Humulin subcutaneous infusion Q24H R U-500 (Concentrated) Insulin) metoprolol succinate 50 mg 50 mg PO DAILY 12/30/23 12/30/23 History tablet,extended release 24 hr nabumetone 500 mg tablet 500 mg PO BID 12/30/23 12/31/23 History atorvastatin 80 mg tablet 80 mg PO DAILY 12/31/23 12/31/23 History fenofibrate 160 mg tablet 160 mg PO DAILY 12/31/23 12/31/23 History Allergies Allergy/AdvReac Type Severity Reaction Status Date / Time No Known Drug Allergies Allergy Verified 12/30/23 23:19 Exam Constitutional Vital Signs, click to edit/add: Last Vital Signs Temp 100.0 F 12/31/23 07:42 Pulse 128 H 12/31/23 10:00 Resp 24 H 12/31/23 09:05 BP 119/74 12/31/23 10:44 Pulse Ox 97 12/31/23 10:00 O2 Del Method Nasal Cannula 12/31/23 07:42 O2 Flow Rate 2 12/31/23 09:05 Documenting provider has reviewed patient's vital signs: yes Common normals: apparent distress (Lethargic and somewhat respiratory distress) Chest Common normals: inspection of chest normal Respiratory Common normals: no retractions and clear to auscultation bilaterally; abnormal respiratory effort Cardio Common normals: regular rhythm; irregular rate Rate: tachycardic GI Common normals: Normal to inspection, nondistended, normoactive bowel sounds present and soft to palpation Extremity Common normals: normal to inspection and normal capillary refill Results Labs and Meds Lab results: Cardiac Enzymes 12/31/23 Range/Units 00:21 AST 11 L (15-37) U/L CBC 12/31/23 Range/Units 00:21 WBC 11.0 (4.0-11.0) 10^3/uL RBC 6.08 (4.70-6.10) 10^6/uL Hgb 17.7 (14.0-18.0) g/dL Hct 51.7 (42.0-54.0) % Plt Count 235 (150-450) 10^3/uL Neut # (Auto) 9.4 H (1.4-6.5) 10^3/uL Lymph # (Auto) 0.7 L (1.2-3.8) 10^3/uL [place] # (Auto) 0.8 (0.3-0.8) 10^3/uL Eos # (Auto) 0.1 (0.0-0.7) 10^3/uL Baso # (Auto) 0.1 (0.0-0.1) 10^3/uL Comprehensive Metabolic Panel 12/31/23 Range/Units 00:21 Sodium 137 (136-145) mmol/L Potassium 3.9 (3.5-5.1) mmol/L Chloride 99 (98-107) mmol/L Carbon Dioxide 25.2 (21.0-32.0) mmol/L BUN 15.0 (7.0-18.0) mg/dL Creatinine 0.99 (0.70-1.30) mg/dL Glucose 349 H (74-106) mg/dL Calcium 9.1 (8.5-10.1) mg/dL AST 11 L (15-37) U/L ALT 32 (16-63) U/L Alkaline Phosphatase 97 (46-116) U/L Total Protein 6.9 (6.4-8.2) g/dL Albumin 3.7 (3.4-5.0) g/dL Intake and Output 12/30/23 12/31/23 12/31/23 23:59 07:59 15:59 Intake Total 6000 / 6000 1228.667 / 1228.667 Output Total 1100 / 1100 1350 / 1350 Balance 4900 / 4900 -121.333 / -121.333 Intake: Oral 1071 / 1071 Other 1999 / 1999 IV 4000 / 4000 157.667 / 157.667 0.9 % Sodium Chloride 1,000 ml 4000 / 4000 @ 999 mls/hr IV .Q1H1M ONE Rx#: [id number] Levofloxacin in Dextrose 5 % 150 / 150 750 mg In 150 ml @ 100 mls/hr IV Q24H [facility] Rx#:[id number] dilTIAZem HCL 125 mg In 0.9 % 7.667 / 7.667 Sodium Chloride 100 ml @ 10 mls /hr IV TITR FERMIN Rx#:[id number] Output: Urine 1100 / 1100 1350 / 1350 Other: Other Intake Source Saline Solution # Unmeasured Voids 1 # Unmeasured Emesis Episodes 1 Weight 138.799 kg 141.9 kg Imaging and Cardiology ECG results: report reviewed Assessment and Plan Assessment and Plan (1) Hyperglycemia: Assessment and Plan: Pt has Hyperglycemia, WIll need strict BS control. He has evidence of colume depletion which needs to be corrected. He is followed by anderson at [facility]. (2) Tachycardia: Assessment and Plan: EKG and tele is supportive of sinus tachycardia response, liekly from voluem depletion. Would recc holding Cardizem and see how he does when underlying hyperglycemia and volume depletion is corrected. Plan Low-grade fever, sinus tachycardia, respiratory distress, labile hypertension, positive lactate secondary to possible infectious etiology. Will see how symptoms progressed throughout the course of the day today. Due to the risk of proceeding to sepsis we will start with antibiotics. Has been also given fluid boluses of 4 L so far. CTA abdomen pelvis and chest all normal. 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 Will consult to cardiology, check echocardiogram, troponins and BNP are neg ative. Urine drug screen negative Significant tachycardia, unresolving with hydration, likely etiology is dehydration, infectious, SVT. Patient likely 3 to 4-day hospital stay as workup continues. Inpatient status.
[2023-12-31] MEDS: 0.9 % SODIUM CHLORIDE 1,000 ML 1000 ML IV (12:48)
[2023-12-31] MEDS: FENOFIBRATE 54 MG TABLET 162 MG PO (12:49)
[2023-12-31] MEDS: ASPIRIN 81 MG TAB.CHEW PO (12:49)
[2023-12-31] MEDS: METOPROLOL SUCCINATE 50 MG TAB.ER.24H PO (12:50)
[2023-12-31] MEDS: INSULIN PUMP SUBQ (17:37)
[2023-12-31] MEDS: INSULIN REGULAR HUM U SUBQ (17:37)
[2023-12-31] MEDS: DICYCLOMINE HCL 10 MG CAPSULE 20 MG PO (21:13)
[2023-12-31] MEDS: NABUMETONE 500 MG TABLET PO (21:14)
[2023-12-31] MEDS: ATORVASTATIN CALCIUM 40 MG TABLET 80 MG PO (21:14)
[2024-01-01] VITALS (27 sets, daily range): BP systolic 124–140; BP diastolic 70–85; PULSE 76–110; TEMP 36.6–36.9; O2SAT 82–96
[2024-01-01 05:28] LABS: Basophils Percent Auto 0.2 % (0.2-2.0); Eosinophils Absolute Auto 0.1 10^3/uL (0.0-0.7); Eosinophils Percent Auto 2.7 % (0.9-7.0); Hematocrit 39.8 % (42.0-54.0); Hemoglobin 13.3 g/dL (14.0-18.0); Immature Granulocytes Abs Auto 0.01 10^3/uL (0.00-0.03); Immature Granulocytes Pct Auto 0.2 % (0.0-0.5); Lymphocytes Percent Auto 25.6 % (20.5-60.0); Mean Corpuscular HGB Conc 33.4 g/dL (29.9-35.2); Mean Corpuscular Hemoglobin 29.5 pg (25.9-34.0); Mean Corpuscular Volume 88.2 fL (80.0-94.0); Monocytes Absolute Auto 0.6 10^3/uL (0.3-0.8); Monocytes Percent Auto 15.1 % (1.7-12.0); Neutrophils Absolute Auto 2.3 10^3/uL (1.4-6.5); Neutrophils Percent Auto 56.2 % (43.0-75.0); Platelet Count 152 10^3/uL (150-450); Red Blood Count 4.51 10^6/uL (4.70-6.10); Red Cell Distribution Width 12.3 % (11.0-15.0)
[2024-01-01 05:53] LABS: Alanine Aminotransferase 21 U/L (16-63); Albumin Globulin Ratio 0.9; Albumin Level 2.5 g/dL (3.4-5.0); Alkaline Phosphatase 60 U/L (46-116); Anion Gap 9.7; Aspartate Amino Transferase 10 U/L (15-37); BUN Creatinine Ratio 11.5; Bilirubin Total 0.6 mg/dL (0.2-1.0); Calcium 7.5 mg/dL (8.5-10.1); Carbon Dioxide 28.8 mmol/L (21.0-32.0); Chloride 107 mmol/L (98-107); Estimated GFR (African America >60 (>=60); Estimated GFR (Non-African Ame >60 (>=60); Globulin 2.8 g/dL; Glucose 168 mg/dL (74-106); Potassium 3.5 mmol/L (3.5-5.1); Sodium 142 mmol/L (136-145); Total Protein 5.3 g/dL (6.4-8.2)
[2024-01-01] MEDS: ACETAMINOPHEN 500 MG TABLET 1000 MG PO (07:38)
[2024-01-01] MEDS: 0.9 % SODIUM CHLORIDE 1,000 ML 125 ML IV (07:40)
--- NOTE | 2024-01-01 09:01 | P.DS_ITS ---
DS: Providers Provider Date of admission: 12/31/23 12:45 Primary care physician: Loy Montes De Oca MD Consults: 12/31/23 08:08 Consult to Pharmacy Routine Consulting Provider: Reason for consultation: Please [place] me when Med Rec is Updated Has provider been notified: No 12/31/23 10:07 Consult to Cardiology Routine Reason for consultation: tachy Has provider been notified: No DS: Diagnosis Discharge Diagnosis (1) Hyperglycemia: (2) Tachycardia: Plan Low-grade fever, sinus tachycardia, respiratory distress, labile hypertension, positive lactate secondary to possible infectious etiology. Will see how symptoms progressed throughout the course of the day today. Due to the risk of proceeding to sepsis we will start with antibiotics. Has been also given fluid boluses of 4 L so far. CTA abdomen pelvis and chest all normal. Patient has a history of tachycardia, sees an pipe organ builder for that. Will consult to cardiology, check echocardiogram, troponins and BNP are negative. Urine drug screen negative Poorly controlled DM Inpatient Plan: Significant tachycardia, unresolving with hydration, likely etiology is dehydration, infectious, SVT. Patient likely 3 to 4-day hospital stay as workup continues. Inpatient status. ? DS: Summary Hospital Course Hospital Course: Patient presented to the emergency room with increasing weakness. Found have significant tachycardia in the 130s 140s. He was given 5 L of fluid without improvement in his heart rate. Sugar was also high at that time. Sugar has improved. He was placed on Cardizem drip which did improve his heart rate. Has been able to be weaned off of the Cardizem drip. Increase his beta-aaron from 50 mg a day to 100 mg a day of metoprolol succinate. He states he feels much improved this morning. Encouraged the patient that certainly rebound tachycardia may be a possibility. Encouraged him to ambulate without significant tachycardia would be the safest thing before going home. He did ambulate but his heart rate still gets into the 120s. Patient still felt improved and was insistent on being discharged home. Will discharge patient to home in improving condition but not back to his baseline. Recommend he follow- up with his flight test data acquisition technician JASMIN. Patient discharged home faster than anticipated due to patient preference. Status at Discharge Functional status at discharge: independent ambulation Overall status at discharge: patient is not back to baseline Time Spent with Patient Time attestation: Total time spent providing and/or coordinating discharge services: Time spent: greater than 30 minutes Exam Constitutional Vital Signs, click to edit/add: Last Vital Signs Temp 98.4 F 01/01/24 07:38 Pulse 84 01/01/24 06:00 Resp 18 01/01/24 04:00 BP 140/72 01/01/24 04:00 Pulse Ox 93 L 01/01/24 08:54 O2 Del Method Room Air 01/01/24 08:54 O2 Flow Rate 2 12/31/23 09:05 Documenting provider has reviewed patient's vital signs: yes Common normals: no apparent distress Chest Common normals: inspection of chest normal Respiratory Common normals: no retractions and clear to auscultation bilaterally; abnormal respiratory effort Cardio Common normals: regular rhythm; irregular rate Rate: tachycardic (But improved, is in the low 100s) GI Common normals: Normal to inspection, nondistended, normoactive bowel sounds present and soft to palpation Extremity Common normals: normal to inspection and normal capillary refill DS: Data Data Completed and Pending Labs on day of discharge: Labs from last 24 hours 01/01/24 12/31/23 12/31/23 05:09 11:29 11:20 WBC 4.0 RBC 4.51 L Hgb 13.3 L Hct 39.8 L MCV 88.2 MCH 29.5 MCHC 33.4 RDW 12.3 Plt Count 152 MPV 10.0 Neut % (Auto) 56.2 Lymph % (Auto) 25.6 [place] % (Auto) 15.1 H Eos % (Auto) 2.7 Baso % (Auto) 0.2 Neut # (Auto) 2.3 Lymph # (Auto) 1.0 L [place] # (Auto) 0.6 Eos # (Auto) 0.1 Baso # (Auto) 0.0 Abs Immat Gran (auto) 0.01 Imm/Tot Granulo (auto) 0.2 Sodium 142 Potassium 3.5 Chloride 107 Carbon Dioxide 28.8 Anion Gap 9.7 BUN 9.0 Creatinine 0.78 Est GFR ( Amer) >60 Est GFR (Non-Af Amer) >60 BUN/Creatinine Ratio 11.5 Glucose 168 H Calcium 7.5 L Total Bilirubin 0.6 AST 10 L ALT 21 Alkaline Phosphatase 60 Troponin I High Sens 4.8 NT-Pro-B Natriuret Pep Total Protein 5.3 L Albumin 2.5 L Globulin 2.8 Albumin/Globulin Ratio 0.9 Thyroxine (T4) POC Glucose 334 H 12/31/23 12/31/23 09:31 05:42 WBC RBC Hgb Hct MCV MCH MCHC RDW Plt Count MPV Neut % (Auto) Lymph % (Auto) [place] % (Auto) Eos % (Auto) Baso % (Auto) Neut # (Auto) Lymph # (Auto) [place] # (Auto) Eos # (Auto) Baso # (Auto) Abs Immat Gran (auto) Imm/Tot Granulo (auto) Sodium Potassium Chloride Carbon Dioxide Anion Gap BUN Creatinine Est GFR ( Amer) Est GFR (Non-Af Amer) BUN/Creatinine Ratio Glucose Calcium Total Bilirubin AST ALT Alkaline Phosphatase Troponin I High Sens 4.7 NT-Pro-B Natriuret Pep 24.0 Total Protein Albumin Globulin Albumin/Globulin Ratio Thyroxine (T4) 6.40 POC Glucose 328 H Discharge Plan Discharge Disposition: Home, Self-Care Discharge Medications: New metoprolol succinate 50 mg Tablet Extended Release 24 Hr 100 mg PO DAILY Qty: 60 11RF Continued metoprolol succinate 50 mg tablet extended release 24 hr 50 mg PO DAILY Humulin R U-500 (Conc) Insulin 500 unit/mL solution 1 - 20 unit continuous subcutaneous infusion Q24H Rx Instructions: uses insulin pump aspirin 81 mg tablet,chewable 1 tab PO DAILY clomipramine 25 mg capsule 25 mg PO BEDTIME nabumetone 500 mg tablet 500 mg PO BID fenofibrate 160 mg tablet 160 mg PO DAILY atorvastatin 80 mg tablet 80 mg PO DAILY Activity: increase activity as tolerated Diet: advance to your usual diet Print Language: Upper Sorbian Patient Instructions: Metoprolol (By mouth) Forms: Portal Instructions Follow Up Appointments: Dr Montes De Oca on Sunday January 14, 2024 at 8:00am. Phone number [phone] Discharge Date/Time: 01/01/24 12:15
--- NOTE | 2024-01-01 09:26 | CM.NOTE ---
Rounds made with Dr. Alcocer, possible discharge to home this afternoon if vitals remain stable.
[2024-01-01] MEDS: NABUMETONE 500 MG TABLET PO (10:00)
[2024-01-01] MEDS: ASPIRIN 81 MG TAB.CHEW PO (10:00)
[2024-01-01] MEDS: FENOFIBRATE 54 MG TABLET 162 MG PO (10:00)
[2024-01-01] MEDS: METOPROLOL SUCCINATE 50 MG TAB.ER.24H 100 MG PO (10:00)
[2024-01-01] MEDS: LEVOFLOXACIN IN DEXTROSE 5 % 750 MG/150 ML IV.SOLN 100 MG IV (10:01)
[2024-01-01 10:15] LABS: Glucometer 145 mg/dL (74-106)
--- NOTE | 2024-01-01 11:41 | PC.NURSE ---
Dr Alcocer notified [address], metoprolol was given at 1000, he just walked in the hallway, heart rate got as high as 120, quickly recovered to 86 when sitting in chair. Patient denies any shortness of breath, no nausea, and no pain. Pt is asking if he can discharge home. Dr Alcocer responded with ok to go, But it would be safer to stay and continue to adjust his medications . Patient informed that it would be safer to stay and have his medications adjusted, pt requesting to be discharged at this time, does not want to stay another night.
--- NOTE | 2024-01-07 14:46 | CM.DCFOLLOWU ---
Person spoke with: patient How are you feeling? well How is your pain? no pain Did you understand your discharge instructions? yes Do you have any questions about your discharge instructions? no Were you given any prescriptions at discharge? yes Were you able to get your prescriptions filled? yes Do you understand how to take your medications as ordered? yes Do you have any questions about your follow up appointment and do you plan to keep your follow up appointment? no questions, follow up on 01/14/24 with PCP Is there anything else that you would like to discuss? no Questions/Comments/Concerns/Other: N/A
== END 2024-01-01 12:15 | disposition home or self-care (01) | DRG 641 ==
LOC: ER 12-31 06:10 → ICU 12-31 07:35
PROVIDERS: Admitting Provider Family Medicine; Emergency Provider Internal Medicine; PCP Family Medicine; Visit Provider Family Medicine
DX: E86.0 Dehydration (principal); R00.0 Tachycardia, unspecified; K52.9 Noninfective gastroenteritis and colitis, unspecified; E11.65 Type 2 diabetes mellitus with hyperglycemia; E78.00 Pure hypercholesterolemia, unspecified; R06.03 Acute respiratory distress; I10 Essential (primary) hypertension; Z79.82 Long term (current) use of aspirin; Z79.4 Long term (current) use of insulin; Z79.899 Other long term (current) drug therapy; R50.9 Fever, unspecified; Z96.41 Presence of insulin pump (external) (internal)
CPT/HCPCS: 36415; 36416; 71046; 71275; 74174; 80053; 80307; 81003; 82271; 82800; 82948; 83605; 83690; 83880; 84436; 84484; 85025; 87040; 87070; 87804; 93005; 93306; 94761; 96361; 96365; 96366; 96367; 96375; 96376; 99285; Q9967

== ENCOUNTER 2024-11-11 03:15 | Emergency (ER) | payer OTHER, SELFPAY ==
[2024-11-11] VITALS (11 sets, daily range): BP systolic 115–124; BP diastolic 68–77; PULSE 83–105; TEMP 37.1–37.2; O2SAT 93–98; BMI 43.9
--- NOTE | 2024-11-11 03:32 | ECG_ITS ---
[facility] Test Date: 2024-11-11 Pat Name: KEYANA ZAMARRIPA Department: Room: - Gender: Male Ar Manager: : 1990 Requested By: SAMI TAN Order Number: [id number] Reading MD: MARIE LYN Measurements Intervals [place] Rate: 104 P: 10 NH: 128 QRS: 114 QRSD: 86 T: -17 QT: 330 QTc: 391 Interpretive Statements 1120 Sinus tachycardia 4068 Nonspecific [place] abnormality 5120 Possible right ventricular hypertrophy 9140 abnormal rhythm ECG Electronically Signed On 11-11-2024 6:46:37 EST by MARIE LYN
--- NOTE | 2024-11-11 03:33 | ED_ITS ---
HPI - Nausea/Vomiting/Diarrhea General Chief complaint: Nausea/Vomiting/Diarrhea Stated complaint: NVD, CHEST PAIN Time Seen by Provider: 11/11/24 03:30 Source: patient Mode of arrival: walk-in Limitations: no limitations History of Present Illness HPI Narrative: 34-year-old male presents to the emergency department for nausea vomiting and diarrhea. It started about 8 PM, about 7 and half hours ago. He has not been around anybody has been ill. He states his blood sugar went up, into the 140s. He is on an insulin pump. No fever, hematemesis, or hematochezia. Related Data Home Medications ?Medication ?Instructions ?Recorded ?Confirmed aspirin 81 mg chewable tablet 1 tab PO DAILY 12/30/23 12/30/23 clomipramine 25 mg capsule 25 mg PO BEDTIME 12/30/23 12/30/23 insulin regular hum U-500 conc 500 1 - 20 unit continuous 12/30/23 12/31/23 unit/mL subcutaneous soln (Humulin subcutaneous infusion Q24H R U-500 (Concentrated) Insulin) metoprolol succinate 50 mg 50 mg PO DAILY 12/30/23 12/30/23 tablet,extended release 24 hr nabumetone 500 mg tablet 500 mg PO BID 12/30/23 12/31/23 atorvastatin 80 mg tablet 80 mg PO DAILY 12/31/23 12/31/23 fenofibrate 160 mg tablet 160 mg PO DAILY 12/31/23 12/31/23 Previous Rx's ?Medication ?Instructions ?Recorded metoprolol succinate 50 mg 100 mg (2 x 50 mg) PO DAILY #60 01/01/24 tablet,extended release 24 hr tabs ondansetron 4 mg disintegrating 4 mg PO Q6H PRN nausea and 11/11/24 tablet vomiting #20 tabs Allergies Allergy/AdvReac Type Severity Reaction Status Date / Time No Known Drug Allergies Allergy Verified 11/11/24 03:21 Review of Systems ROS Narrative A ten point review of systems is negative except as noted above. [facility] Medical History High cholesterol ?E78.00 - Pure hypercholesterolemia, unspecified (ICD-10) Diabetes ?E11.9 - Type 2 diabetes mellitus without complications (ICD-10) Family History Other Family history of COPD (chronic obstructive pulmonary disease) Family history of diabetes mellitus Family history of hypertension Family history of myocardial infarction Family history of renal failure Social History Within the past year, how often did you have a drink containing alcohol: never Score interpretation: A score less than 4 is consistent with normal alcohol consumption. Known occupational exposures/hazards: No Highest level of school completed/degree received: 12th grade, no diploma Do you want help with school or training: No Little interest or pleasure in doing things: not at all Feeling down, depressed, or hopeless: not at all Exam Narrative Exam Narrative: Nurses note and vital signs reviewed and patient is not hypoxic. General: The patient appears in no acute respiratory distress Skin: Warm, mildly diaphoretic, no pallor noted. There is no rash noted. Head: Normocephalic, atraumatic Eye: Normal conjunctiva, no drainage Ears, Nose, Mouth, and Throat: oral mucosa is moist. Nares patent. Cardiovascular: Regular Rate and Rhythm Respiratory: Patient is in no distress, no accessory muscle use, lungs are clear to auscultation, no wheezing, rales or rhonchi Back: non-tender GI: Obese, soft, nondistended, no masses, no tenderness Musculoskeletal: The patient has no evidence of calf tenderness, no pitting edema, symmetrical pulses noted bilaterally Neurological: A&O, normal speech Psychiatric: Cooperative Constitutional Vital Signs, click to edit/add: Last Vital Signs Temp 98.9 F 11/11/24 03:22 Pulse 96 H 11/11/24 04:00 Resp 18 11/11/24 04:00 BP 121/68 11/11/24 04:00 Pulse Ox 93 L 11/11/24 04:00 O2 Del Method Room Air 11/11/24 03:22 Course Vital Signs Vital signs: Vital Signs Temperature 98.9 F 11/11/24 03:22 Pulse Rate 99 H 11/11/24 03:22 Respiratory Rate 19 11/11/24 03:22 Blood Pressure 120/77 11/11/24 03:22 Pulse Oximetry 98 11/11/24 03:22 Oxygen Delivery Method Room Air 11/11/24 03:22 Temperature 98.9 F 11/11/24 03:22 Pulse Rate 96 H 11/11/24 04:00 Respiratory Rate 18 11/11/24 04:00 Blood Pressure 121/68 11/11/24 04:00 Pulse Oximetry 93 L 11/11/24 04:00 Oxygen Delivery Method Room Air 11/11/24 03:22 MDM - Nausea/Vomiting/Diarrhea MDM Narrative Medical decision making narrative: Blood work is unremarkable other than minimally elevated blood sugar. He was given IV fluids and Zofran and is feeling improved and is able to be discharged home with a prescription for Zofran. I have no clinical suspicion of DKA. Treatment diagnosis and follow-up were discussed with the patient. Differential Diagnosis Differential diagnosis: Likely food poisoning, gastroenteritis and dehydration Lab Data Attestation: I reviewed the patient's lab results. Labs: Lab Results 11/11/24 Range/Units 03:50 WBC 12.6 H (4.0-11.0) 10^3/uL RBC 5.48 (4.70-6.10) 10^6/uL Hgb 16.3 (14.0-18.0) g/dL Hct 46.2 (42.0-54.0) % MCV 84.3 (80.0-94.0) fL MCH 29.7 (25.9-34.0) pg MCHC 35.3 H (29.9-35.2) g/dL RDW 11.3 (11.0-15.0) % Plt Count 298 (150-450) 10^3/uL MPV 9.9 (9.5-13.5) fL Neut % (Auto) 87.1 H (43.0-75.0) % Lymph % (Auto) 6.9 L (20.5-60.0) % [place] % (Auto) 4.5 (1.7-12.0) % Eos % (Auto) 0.9 (0.9-7.0) % Baso % (Auto) 0.3 (0.2-2.0) % Neut # (Auto) 11.0 H (1.4-6.5) 10^3/uL Lymph # (Auto) 0.9 L (1.2-3.8) 10^3/uL [place] # (Auto) 0.6 (0.3-0.8) 10^3/uL Eos # (Auto) 0.1 (0.0-0.7) 10^3/uL Baso # (Auto) 0.0 (0.0-0.1) 10^3/uL Abs Immat Gran (auto) 0.04 H (0.00-0.03) 10^3/uL Imm/Tot Granulo (auto) 0.3 (0.0-0.5) % Sodium 141 (136-145) mmol/L Potassium 4.1 (3.5-5.1) mmol/L Chloride 103 (98-107) mmol/L Carbon Dioxide 24.0 (21.0-32.0) mmol/L Anion Gap 18.1 BUN 21.0 H (7.0-18.0) mg/dL Creatinine 1.08 (0.70-1.30) mg/dL Est GFR ( Amer) >60 (>=60 mL/min/1.73m^2) Est GFR (Non-Af Amer) >60 (>=60 mL/min/1.73m^2) BUN/Creatinine Ratio 19.4 Glucose 183 H (74-106) mg/dL Calcium 8.9 (8.5-10.1) mg/dL ECG Data Attestation: I personally reviewed and interpreted this ECG as follows: (EKG on my interpretation shows normal sinus rhythm with a rate of 104 and no acute change.) Discharge Plan Discharge Chief Complaint: Nausea/Vomiting/Diarrhea Clinical Impression: Nausea, vomiting, and diarrhea Patient Disposition: Home, Self-Care Time of Disposition Decision: 04:22 Condition: Good Mode of Transportation: Private Vehicle Prescriptions / Home Meds: New ondansetron 4 mg tablet,disintegrating 4 mg PO Q6H PRN (Reason: nausea and vomiting) Qty: 20 0RF No Action metoprolol succinate 50 mg tablet extended release 24 hr 50 mg PO DAILY Humulin R U-500 (Conc) Insulin 500 unit/mL solution 1 - 20 unit continuous subcutaneous infusion Q24H Rx Instructions: uses insulin pump aspirin 81 mg tablet,chewable 1 tab PO DAILY clomipramine 25 mg capsule 25 mg PO BEDTIME nabumetone 500 mg tablet 500 mg PO BID fenofibrate 160 mg tablet 160 mg PO DAILY atorvastatin 80 mg tablet 80 mg PO DAILY metoprolol succinate 50 mg Tablet Extended Release 24 Hr 100 mg PO DAILY Qty: 60 11RF Print Language: Moz[place]ican Instructions: Acute Nausea and Vomiting (ED), Acute Diarrhea (ED) Referrals: Loy Montes De Oca MD [Primary Care Provider] - 1 week
[2024-11-11] MEDS: 0.9 % SODIUM CHLORIDE 1,000 ML 1000 ML IV (03:52)
[2024-11-11] MEDS: ONDANSETRON PF 4 MG/2 ML VIAL IV (03:52)
[2024-11-11 04:02] LABS: Basophils Percent Auto 0.3 % (0.2-2.0); Eosinophils Absolute Auto 0.1 10^3/uL (0.0-0.7); Eosinophils Percent Auto 0.9 % (0.9-7.0); Hematocrit 46.2 % (42.0-54.0); Hemoglobin 16.3 g/dL (14.0-18.0); Immature Granulocytes Abs Auto 0.04 10^3/uL (0.00-0.03); Immature Granulocytes Pct Auto 0.3 % (0.0-0.5); Lymphocytes Absolute Auto 0.9 10^3/uL (1.2-3.8); Lymphocytes Percent Auto 6.9 % (20.5-60.0); Mean Corpuscular HGB Conc 35.3 g/dL (29.9-35.2); Mean Corpuscular Hemoglobin 29.7 pg (25.9-34.0); Mean Corpuscular Volume 84.3 fL (80.0-94.0); Mean Platelet Volume 9.9 fL (9.5-13.5); Monocytes Absolute Auto 0.6 10^3/uL (0.3-0.8); Monocytes Percent Auto 4.5 % (1.7-12.0); Neutrophils Percent Auto 87.1 % (43.0-75.0); Platelet Count 298 10^3/uL (150-450); Red Blood Count 5.48 10^6/uL (4.70-6.10); Red Cell Distribution Width 11.3 % (11.0-15.0); White Blood Count 12.6 10^3/uL (4.0-11.0)
[2024-11-11 04:11] LABS: Anion Gap 18.1; BUN Creatinine Ratio 19.4; Calcium 8.9 mg/dL (8.5-10.1); Chloride 103 mmol/L (98-107); Estimated GFR (African America >60 (>=60 mL/min/1.73m^2); Estimated GFR (Non-African Ame >60 (>=60 mL/min/1.73m^2); Glucose 183 mg/dL (74-106); Potassium 4.1 mmol/L (3.5-5.1); Sodium 141 mmol/L (136-145)
--- NOTE | 2024-11-11 05:02 | PC.NURSE ---
i gave this patient verbal and written discharge orders along with 1 e-script, and this patient voices yes to understanding these. at time of discharge this patient voices no concerns and shows no signs of distress
== END 2024-11-11 05:03 | disposition home or self-care (01) ==
PROVIDERS: Emergency Provider Emergency Medicine; PCP Family Medicine
DX: R11.2 Nausea with vomiting, unspecified (principal); R19.7 Diarrhea, unspecified; E11.9 Type 2 diabetes mellitus without complications; Z96.41 Presence of insulin pump (external) (internal); Z79.4 Long term (current) use of insulin
CPT/HCPCS: 36415; 80048; 85025; 93005; 96361; 96374; 99284; J2405

== ENCOUNTER 2025-06-25 07:13 | Emergency (ER) | payer SELFPAY ==
[2025-06-25 07:23] VITALS: BP 139/86; PULSE 96; TEMP 37; O2SAT 97; BMI 44.2
--- NOTE | 2025-06-25 07:35 | ED.GENADUL1 ---
HPI HPI - General Adult General Chief complaint: Skin/Abscess/Foreign Body Stated complaint: ABCESS ON L SIDE JAW Time Seen by Provider: 06/25/25 07:25 Source: patient Mode of arrival: walk-in Limitations: no limitations History of Present Illness HPI narrative: 34-year-old male presented to the emergency department for swelling to the left jaw area. No trauma and he has no dental pain. No difficulty breathing or swallowing and he has had this for the last few days and it seems to be getting slightly worse each day. Related Data Home Medications ?Medication ?Instructions ?Recorded ?Confirmed aspirin 81 mg chewable tablet 1 tab PO DAILY 12/30/23 06/25/25 clomipramine 25 mg capsule 25 mg PO BEDTIME 12/30/23 12/30/23 insulin regular hum U-500 conc 500 1 - 20 unit continuous 12/30/23 12/31/23 unit/mL subcutaneous soln (Humulin subcutaneous infusion Q24H R U-500 (Concentrated) Insulin) metoprolol succinate 50 mg 50 mg PO DAILY 12/30/23 06/25/25 tablet,extended release 24 hr nabumetone 500 mg tablet 500 mg PO BID 12/30/23 06/25/25 atorvastatin 80 mg tablet 80 mg PO DAILY 12/31/23 06/25/25 fenofibrate 160 mg tablet 160 mg PO DAILY 12/31/23 06/25/25 Previous Rx's ?Medication ?Instructions ?Recorded acetaminophen 300 mg-codeine 30 mg 1 tab PO Q6H PRN pain 5 days #20 06/25/25 tablet tabs cephalexin 500 mg capsule 500 mg PO QID 10 days #40 caps 06/25/25 sulfamethoxazole 800 1 tab PO BID 10 days #20 tabs 06/25/25 mg-trimethoprim 160 mg tablet (Bactrim DS) Allergies Allergy/AdvReac Type Severity Reaction Status Date / Time No Known Drug Allergies Allergy Verified 06/25/25 07:22 Opioid HPI Opioid Management Most Recent Opioid Data: Last Pain Scale 7 Today, 07:23 Last ORT Total Score 7 12/31/23, 07:42 Last ORT Risk Category Moderate Risk 12/31/23, 07:42 Ur Phencyclidine Scrn, (NEGATIVE) Negative 12/31/23, 05:49 Review of Systems ROS Narrative A ten point review of systems is negative except as noted above. PFSH PFSH Medical History High cholesterol ?E78.00 - Pure hypercholesterolemia, unspecified (ICD-10) Diabetes ?E11.9 - Type 2 diabetes mellitus without complications (ICD-10) Family History Other Family history of COPD (chronic obstructive pulmonary disease) Family history of diabetes mellitus Family history of hypertension Family history of myocardial infarction Family history of renal failure Social History Within the past year, how often did you have a drink containing alcohol: never Score interpretation: A score less than 4 is consistent with normal alcohol consumption. Known occupational exposures/hazards: No Highest level of school completed/degree received: 12th grade, no diploma Do you want help with school or training: No Little interest or pleasure in doing things: not at all Feeling down, depressed, or hopeless: not at all Exam Narrative Exam Narrative: Nurses note and vital signs reviewed and patient is not hypoxic. General:The patient appears well and in no apparent distress.Patient is resting comfortably on cart. Skin:Warm, dry, no pallor noted.There is no rash noted. Head:Normocephalic, atraumatic Eye: Normal conjunctiva, no drainage Ears, Nose, Mouth, and Throat: oral mucosa is moist. Nares patent. There is fullness on the left jaw just anterior to the angle of the jaw. There is no fluctuance or localized swelling to suggest an abscess. No opening in the skin. Dental condition appears appropriate with no gingival swelling or dental tenderness. No swelling to the floor of his mouth Cardiovascular:Regular Rate and Rhythm Respiratory:Patient is in no distress, no accessory muscle use, lungs are clear to auscultation, no wheezing, rales or rhonchi Back:non-tender GI: Soft and nontender Musculoskeletal: The patient has no evidence of calf tenderness, no pitting edema, symmetrical pulses noted bilaterally Neurological:A&O, normal speech Psychiatric:Cooperative Constitutional Vital Signs, click to edit/add: Last Vital Signs Temp 98.6 F 06/25/25 07:23 Pulse 96 H 06/25/25 07:23 Resp 20 06/25/25 07:23 BP 139/86 06/25/25 07:23 Pulse Ox 97 06/25/25 07:23 O2 Del Method Room Air 06/25/25 07:23 Course Vital Signs Vital signs: Vital Signs Temperature 98.6 F 06/25/25 07:23 Pulse Rate 96 H 06/25/25 07:23 Respiratory Rate 20 06/25/25 07:23 Blood Pressure 139/86 06/25/25 07:23 Pulse Oximetry 97 06/25/25 07:23 Oxygen Delivery Method Room Air 06/25/25 07:23 Temperature 98.6 F 06/25/25 07:23 Pulse Rate 96 H 06/25/25 07:23 Respiratory Rate 20 06/25/25 07:23 Blood Pressure 139/86 06/25/25 07:23 Pulse Oximetry 97 06/25/25 07:23 Oxygen Delivery Method Room Air 06/25/25 07:23 Medical Decision Making MDM Narrative Medical decision making narrative: There is no clinical evidence of abscess. My clinical impression is that he has cellulitis. He was prescribed Keflex and Bactrim as well as Tylenol 3 and was advised warm compresses. He will return if symptoms worsen. Treatment diagnosis and follow-up were discussed with the patient. Differential Diagnosis Differential Diagnosis: Abscess, cellulitis Discharge Plan Discharge Chief Complaint: Skin/Abscess/Foreign Body Clinical Impression: Facial cellulitis Patient Disposition: Home, Self-Care Time of Disposition Decision: 07:32 Condition: Good Mode of Transportation: Private Vehicle Prescriptions / Home Meds: New acetaminophen-codeine 300-30 mg tablet 1 tab PO Q6H PRN (Reason: pain) 5 Days Qty: 20 0RF sulfamethoxazole-trimethoprim [Bactrim DS] 800-160 mg tablet 1 tab PO BID 10 Days Qty: 20 0RF cephalexin 500 mg capsule 500 mg PO QID 10 Days Qty: 40 0RF No Action metoprolol succinate 50 mg tablet extended release 24 hr 50 mg PO DAILY Humulin R U-500 (Conc) Insulin 500 unit/mL solution 1 - 20 unit continuous subcutaneous infusion Q24H Rx Instructions: uses insulin pump aspirin 81 mg tablet,chewable 1 tab PO DAILY clomipramine 25 mg capsule 25 mg PO BEDTIME nabumetone 500 mg tablet 500 mg PO BID fenofibrate 160 mg tablet 160 mg PO DAILY atorvastatin 80 mg tablet 80 mg PO DAILY Print Language: Greek Instructions: Cellulitis (ED) Additional Instructions: Warm compress for 10 minutes 4 times a day. Return to ED for worsening symptoms. Referrals: Loy Montes De Oca MD [Primary Care Provider, Family Practice] - 1 week
[2025-06-25 07:42] VITALS: O2SAT 98
--- OUTSIDE RECORDS SUMMARY | 2025-06-25 07:44 | XMS_ITS | CCD ---
Author Organization [facility] Care Team Providers Care Psychologists Name Role Phone ELIJAH, AHMAD Admitting Unavailable ELIJAH, AHMAD Attending Unavailable ELIJAH, AHMAD Consulting Unavailable NADERER, DR LOY Womack Primary Care Unavailable NADERER, DR LOY Womack Primary Care Unavailable NADERER, DR LOY Womack Admitting Unavailable NADERER, DR LOY Womack Attending Unavailable NADERER, DR LOY Womack Consulting Unavailable NADERER, DR LOY Womack Primary Care Unavailable ZIEBER, DR ERIKA Mc Consulting Unavailable NADERER, DR LOY Womack Admitting Unavailable NADERER, DR LOY Womack Attending Unavailable NADERER, DR LOY Womack Consulting Unavailable NADERER, DR LOY Womack Primary Care Unavailable NADERER, DR LOY Womack Admitting Unavailable NADERER, DR LOY Womack Attending Unavailable NADERER, DR LOY Womack Primary Care Unavailable WILBERT LOERA Admitting Unavailable WILBERT LOERA Attending Unavailable WILBERT LOERA Consulting Unavailable MD Loy Tan Primary Care Provider DO Kellie Rivero Emergency Provider MD Dustin Painter Admit Provider MD Dustin Painter Attending Provider [phone] TED Roa Other Provider Unavailable TED Sutherland Other Provider Unavailable TED Harris Other Provider Unavailable TED Douglas Other Provider Unavailable TED King Other Provider Unavailable MD Myrtle Lora Other Provider DO Dillon Stein Other Provider [phone] MD Alex Woodruff Other Provider [phone] DO Jeronimo Haley Other Provider MD Raman Mendoza Other Provider MD Mena Saucedo Other Provider MD Minh Serrano Other Provider Unavailable MAREK Kelsey Other Provider MD Frederick Jorge Other Provider [phone] MD Issca Ricardo Other Provider MD Donald Zhu Other Provider MD Paul Almonte Other Provider DO Patrick Perez Other Provider MD Kwesi Zamora Other Provider MD Sj Shaikh Other Provider Raimundo ACCOUNTS COLLECTOR-C Khloe Cervantes Other Provider MAREK Villagran Other Provider Unavailable MD Dom Ulrich Other Provider MD Hesham Trevino Other Provider MD Gregorio Sweeney Other Provider MD Veronica Masters Other Provider Unavailable MD Markie Danielle Other Provider DO Izabel Gore Other Provider DO Judah Ma Other Provider MAREK Land Other Provider DO Frank Olivarez Other Provider MD Desire Maciel Other Provider MAREK Angel Other Provider MAREK Wilson Other Provider MD Clementine Smith Other Provider MD Osei Joaquin Other Provider Crocker, DO Anthony T Other Provider [phone] DO Armond Ahmadi Other Provider MD Jalil Sweeney Other Provider MD Jose Maria Vargas Other Provider MAREK Heck Other Provider MD Taylor Winter Other Provider MD Shen Lacy Other Provider TED Ricci Other Provider Unavailable Loy Tan MD Primary Care Provider Loy Tan Primary Care Unavailable Casandra Roa Consulting Unavailable Dustin Painter Attending Unavailab Dustin Carcamo Admitting Unavailab Leonor Hdez Consulting Unavailable Cynthia Harris Consulting Unavailable Ama Douglas Consulting Unavailable Chelle King Consulting Unavailable Myrtle Lora Consulting Unavailable Dillon Stein Consulting Unavailable Alex Woodruff Consulting Unavailable Jeronimo Haley Consulting UnavailRaman Daniel Consulting Unavailable Mena Saucedo Consulting Unavailable Minh Serrano Consulting Unavailable Mai Kelsey Consulting UnavailFrederick Cooper Consulting Unavailable Issac Ricardo Consulting Unavailable Donald Zhu Consulting Unavailable Paul Almonte Consulting Unavailable Patrick Perez Consulting Unavailable Kwesi Zamora Consulting Unavailable Sj Shaikh Consulting Unavailable Khloe Eubanks Consulting Unavailable Libra Villagran Consulting Unavailable Dom Ulrich Consulting Unavailab Hesham Henson Consulting Unavailable Gregorio Sweeney Consulting Unavailable Veronica Masters Consulting Unavailable Markie Danielle Consulting Unavailable Izabel Gore Consulting Unavailable Judah Ma Consulting Unavailable Elidia Land Consulting Unavailable Frank Olivarez Consulting Unavailable Desire Maciel Consulting Unavailable Valery Angel Consulting Unavailable Rosa Wilson Consulting Unavailable Clementine Smith Consulting Unavailable Osei Joaquin Consulting Unavailable Anthony Crocker Consulting Unavailable GaldinoArmond cortez Consulting Unavailable Jalil Sweeney Consulting Unavailable Jose Maria Vargas Consulting Arianna Davies Consulting Unavailable Taylor Winter Consulting Unavailable Shen Lacy Consulting Unavailable Malorie Ricci Consulting Unavailable Loy Tan Primary Care Unavailable Dustin Painter Attending Unavailab Dustin Carcamo Admitting Unavailab ELDER Bustos Referring Unavailable HUGH, ELDER Referring Unavailable HUGH, ELDER Attending Unavailable TAYLOR CONTRERAS Attending Unavailable HUGH, ELDER Attending Unavailable Loy Tan MD Primary Care Provider [phone] Anayeli Cabrera DO Attending Provider Loy Tan MD Primary Care Provider LOY TAN Attending Unavailable MARIETTA CALDERON Attending Unavailable MARIETTA CALDERON Attending Unavailable LOY TAN Attending Unavailable MARIETTA CALDERON F Attending Unavailable MARIETTA CALDERON F Attending Unavailable LOY TAN Attending Unavailable Allergies Allergy Classification Reported Allergen(s) Allergy Type Date of Onset Reaction(s) Facility (4 sources) Shellfish-Derive d Products Drug Intolerance 3 [facility] (20 sources) Wound Dressing Adhesive Drug Intolerance 3 [facility] (1 source) Shellfish; Translations: [SHELLFISH DERIVED] Propensity to adverse reactions to drug (disorder) 3 [facility] (1 source) ADHESIVE TAPE-SILICONES; Translations: [ADHESIVE TAPE-SILICONES] Propensity to adverse reactions to drug (disorder) 3 [facility] Medications Current Medications Medication Drug Class(es) Dates Sig (Normalized) Sig (Original) acetaminophen 325 mg / oxyCODONE hydrochloride 5 mg oral tablet (5 sources) Opioid Agonist Start: 11-09-2024 End: 11-24-2024 take 1 tablet by mouth four times daily as needed for pain oxyCODONE-acetaminop hen (Percocet) 5-325 MG tablet Indications: 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) Take 1 tablet by mouth 4 (four) times a day as needed for moderate pain or severe pain for up to 15 days 60 tablet 11/09/2024 11/24/2024 Active Start: 07-28-2024 End: 08-12-2024 take 1 tablet by mouth four times daily as needed for pain oxyCODONE-acetaminophen (Percocet) 5-325 MG tablet Indications: 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) Take 1 tablet by mouth 4 (four) times a day as needed for moderate pain or severe pain for up to 15 days 60 tablet 07/28/2024 08/12/2024 Active Start: 05-25-2024 End: 05-25-2024 take 1 tablet by mouth once daily as needed for pain Oxycodone-Acetaminophen 5-325 mg tablet Discontinued 1 TAB PO Daily as needed for pain May 25, 2024 12:00am May 25, 2024 5:54pm aspirin 81 mg delayed release oral tablet (20 sources) Platelet Aggregation Inhibitor, Nonsteroidal Anti-inflammatory Drug Start: 01-29-2024 End: 01-28-2025 take 1 tablet by mouth once daily Aspirin Low Dose 81 MG EC tablet Indications: Sinus tachycardia Take 1 tablet by mouth daily. 30 tablet 9 12/14/2024 Active atorvastatin 40 mg oral tablet (20 sources) HMG-CoA Reductase Inhibitor Start: 05-25-2024 take 1 tablet by mouth once daily Atorvastatin 40 mg tablet Active 40 MG PO Daily May 25, 2024 12:00am Complies with drug therapy Start: 01-28-2024 take 1 tablet by bret th at bedtime atorvastatin (Lipitor) 80 MG tablet Indications: Diabetic polyneuropathy associated with type 2 diabetes mellitus (HCC) Take 1 tablet by mouth at bedtime. 30 tablet 5 01/28/2024 Active cholecalciferol 0.05 mg chewable tablet (10 sources) Vitamin D Cholecalciferol (D3) 50 MCG (1999 UT) chewable tablet Chew Active clomiPRAMINE hydrochloride 25 mg oral capsule (20 sources) Tricyclic Antidepressant Start: 2023 End: 2024 take 1 capsule by mouth at bedtime clomiPRAMINE (Anafranil) 25 MG capsule Indications: Premature ejaculation Take 1 capsule by mouth at bedtime. 90 capsule 3 01/21/2025 Active Continuous Glucose Sensor (Dexcom G7 Sensor) misc (8 sources) Start: 2024 Continuous Glucose Sensor (Dexcom G7 Sensor) [facility] Indications: Type 1 diabetes mellitus with hyperglycemia (HCC) 1 kit Every 10 (ten) days 9 each 3 05/05/2025 Active fenofibrate 160 mg oral tablet (20 sources) Peroxisome Proliferator Receptor alpha Agonist Start: 2024 take 1 tablet by mouth at bedtime fenofibrate (Triglide) 160 MG tablet Indications: Hypertriglyceridemia Take 1 tablet (160 mg) by mouth at bedtime 30 tablet 5 05/03/2025 Active Start: 05-21-2024 End: 06-02-2024 take 1 tablet by mouth at bedtime fenofibrate (Triglide) 160 MG tablet Indications: Hypertriglyceridemia Take 1 tablet (160 mg) by mouth at bedtime 30 tablet 5 06/02/2024 Active Fenugreek Seed (2 sources) Start: 05-25-2024 take 610 mg by mouth once daily in the morning Fenugreek Seed Active 610 MG PO .AM DAILY May 25, 2024 12:00am furosemide 40 mg oral tablet (20 sources) Loop Diuretic Start: 05-25-2024 take 1 tablet by mouth once daily in the morning Furosemide 40 mg tablet Active 40 MG PO .AM DAILY May 25, 2024 12:00am Complies with drug therapy 0.2 ml glucagon 5 mg/ml auto-injector (20 sources) Antihypoglycemic Agent Start: 06-11-2024 inject 1 mg by subcutaneous injection once Gvoke HypoPen 1-Pack 1 MG/0.2ML injection Inject 1 mg under the skin 1 (one) time if needed 06/11/2024 Active hydrOXYzine pamoate 25 mg oral capsule (20 sources) Antihistamine Start: 2024 hydrOXYzine pamoate (Vistaril) 25 MG capsule Take 25 mg by mouth as needed in the morning and 25 mg as needed at noon and 25 mg as needed in the evening. 2024 Active insulin, regular, human 500 unt/ml injectable solution (20 sources) Insulin Start: 05-25-2024 inject 500 [IU] by subcutaneous injection before mealtime Insulin Regular Hum U-500 Conc (Humulin R U-500 (Conc) Insulin) 500 unit/mL solution Active 500 UNIT SUBCUT .before meals May 25, 2024 12:00am Complies with drug therapy Start: 10-18-2023 End: 07-10-2025 inject 250 [IU] by subcutaneous injection once daily insulin regular (HumuLIN R) 500 UNIT/ML CONCENTRATED injection Indications: Type 1 diabetes mellitus with hyperglycemia (HCC) Inject 250 units (0.5 mL) under the skin daily via pump. 45 mL 3 05/03/2025 Active lisinopril 20 mg oral tablet (20 sources) Angiotensin Converting Enzyme Inhibitor Start: 11-04-2023 take 1 tablet by mouth once daily lisinopril 20 MG tablet Take 20 mg by mouth Daily 11/04/2023 Active 24 hr metoprolol succinate 50 mg extended release oral tablet (20 sources) beta-Adrenergic Colin Start: 05-25-2024 take 1 tablet by mouth once daily in the morning Metoprolol Succinate 50 mg tablet extended release 24 hr Active 50 MG PO .AM DAILY May 25, 2024 12:00am Complies with drug therapy Start: 01-28-2024 take 1 tablet by bret th every twenty-four hours in the morning metoprolol succinate XL (Toprol-XL) 50 MG 24 hr tablet Indications: Benign essential hypertension Take 1 tablet (50 mg) by mouth in the morning and at noon 01/28/2024 Active multivitamin (Theragran) tablet (10 sources) take 1 tablet by mouth once daily multivitamin (Theragran) tablet Take 1 tablet by mouth Daily Active nabumetone 500 mg oral tablet (20 sources) Nonsteroidal Anti-inflammatory Drug Start: take 1 tablet by mouth twice daily nabumetone (Relafen) 500 MG tablet Indications: Chronic neck pain Take 1 tablet by mouth twice daily. 180 tablet 3 01/25/2025 Active Start: 01-21-2025 take 1 tablet by bret th twice daily nabumetone (Relafen) 500 MG tablet Indications: Chronic neck pain Take 1 tablet by mouth twice daily. 180 tablet 3 01/21/2025 Active Start: 04-20-2024 End: 01-21-2025 take 1 tablet by mouth twice daily Nabumetone 500 mg tablet Active 500 MG PO Twice daily May 25, 2024 12:00am Complies with drug therapy Semaglutide (3 sources) Start: 05-25-2024 inject 1 mg by subcutaneous injection every week Semaglutide (Ozempic) 1 mg/dose (4 mg/3 mL) pen injector Active 1 MG SUBCUT .once weekly May 25, 2024 12:00am Complies with drug therapy Start: 05-25-2024 inject 1 mg by subcu taneous injection every week Semaglutide (Ozempic) 1 mg/dose (4 mg/3 mL) pen injector Active 1 MG SUBCUT .once weekly May 25, 2024 12:00am semaglutide (Ozempic, 1 MG/DOSE,) 4 MG/3ML solution pen-injector (4 sources) Start: 05-19-2024 End: 06-11-2024 inject 1 mg by subcutaneous injection every week semaglutide (Ozempic, 1 MG/DOSE,) 4 MG/3ML solution pen-injector Indications: Type 2 diabetes mellitus with hyperglycemia, with long-term current use of insulin (CMS/HCC) Inject 1 mg under the skin 1 (one) time per week 3 mL 12 05/19/2024 06/11/2024 Discontinued Start: 05-19-2024 inject 1 mg by subcu taneous injection every week semaglutide (Ozempic, 1 MG/DOSE,) 4 MG/3ML solution pen-injector Indications: Type 2 diabetes mellitus with hyperglycemia, with long-term current use of insulin (CMS/HCC) Inject 1 mg under the skin 1 (one) time per week 3 mL 12 05/19/2024 Active Semaglutide, 2 MG/DOSE, (Ozempic, 2 MG/DOSE,) 8 MG/3ML solution pen-injector (14 sources) Start: 01-14-2025 End: 04-23-2025 inject 2 mg by subcutaneous injection every week Semaglutide, 2 MG/DOSE, (Ozempic, 2 MG/DOSE,) 8 MG/3ML solution pen-injector Indications: Type 2 diabetes mellitus with hyperglycemia, with long-term current use of insulin ([facility]) Inject 2 mg under the skin 1 (one) time per week 3 mL 01/14/2025 04/23/2025 Discontinued Start: 01-14-2025 inject 2 mg by subcu taneous injection every week Semaglutide, 2 MG/DOSE, (Ozempic, 2 MG/DOSE,) 8 MG/3ML solution pen-injector Indications: Type 2 diabetes mellitus with hyperglycemia, with long-term current use of insulin (HCC) Inject 2 mg under the skin 1 (one) time per week 3 mL 5 01/14/2025 Active Start: 01-14-2025 inject 2 mg by subcu taneous injection every week Semaglutide, 2 MG/DOSE, (Ozempic, 2 MG/DOSE,) 8 MG/3ML solution pen-injector Indications: Type 2 diabetes mellitus with hyperglycemia, with long-term current use of insulin (CMS/HCC) Inject 2 mg under the skin 1 (one) time per week 3 mL 5 01/14/2025 Active Start: 10-02-2024 inject 2 mg by subcu taneous injection every week Semaglutide, 2 MG/DOSE, (Ozempic, 2 MG/DOSE,) 8 MG/3ML solution pen-injector Indications: Type 2 diabetes mellitus with hyperglycemia, with long-term current use of insulin (CMS/HCC) Inject 2 mg under the skin 1 (one) time per week 3 mL 5 10/02/2024 Active Start: 09-03-2024 inject 2 mg by subcu taneous injection every week Semaglutide, 2 MG/DOSE, (Ozempic, 2 MG/DOSE,) 8 MG/3ML solution pen-injector Indications: Type 2 diabetes mellitus with hyperglycemia, with long-term current use of insulin (CMS/HCC) Inject 2 mg under the skin 1 (one) time per week 3 mL 5 09/03/2024 Active Start: 07-10-2024 inject 2 mg by subcu taneous injection every week Semaglutide, 2 MG/DOSE, (Ozempic, 2 MG/DOSE,) 8 MG/3ML solution pen-injector Indications: Type 2 diabetes mellitus with hyperglycemia, with long-term current use of insulin (CMS/HCC) Inject 2 mg under the skin 1 (one) time per week 3 mL 5 07/10/2024 Active Start: 06-11-2024 inject 2 mg by subcu taneous injection every week Semaglutide, 2 MG/DOSE, (Ozempic, 2 MG/DOSE,) 8 MG/3ML solution pen-injector Indications: Type 2 diabetes mellitus with hyperglycemia, with long-term current use of insulin (CMS/HCC) Inject 2 mg under the skin 1 (one) time per week 3 mL 5 06/11/2024 Active sertraline 25 mg oral tablet (20 sources) Serotonin Reuptake Inhibitor Start: 03-30-2025 take 2 tablets by mouth once daily in the morning Start: 12-16-2024 take 1 tablet by bret th once daily sertraline (Zoloft) 50 MG tablet Indications: MDD (major depressive disorder), recurrent episode, moderate (HCC) Take 1 tablet (50 mg) by mouth Daily 30 tablet 5 12/16/2024 Active Start: 05-28-2024 End: 03-30-2025 take 1 tablet by mouth once daily sertraline (Zoloft) 25 MG tablet Indications: MDD (major depressive disorder), recurrent episode, moderate (CMS/HCC) Take 1 tablet (25 mg) by mouth Daily 30 tablet 5 09/03/2024 Active sildenafil 25 mg oral tablet (20 sources) Phosphodiesterase 5 Inhibitor Start: 06-11-2024 take 1 tablet by mouth once daily as needed sildenafil (Viagra) 25 MG tablet Indications: Erectile dysfunction associated with type 2 diabetes mellitus (HCC) Take 1 tablet (25 mg) by mouth Daily as needed for erectile dysfunction 10 tablet 5 06/11/2024 Active thiamine 100 mg oral tablet (10 sources) take 1 tablet by mouth once daily thiamine (Vitamin B-1) 100 MG tablet Take 100 mg by mouth Daily Active traZODone hydrochloride 50 mg oral tablet (20 sources) Serotonin Reuptake Inhibitor Start: 03-30-2025 take 2 tablets by mouth once daily at bedtime as needed Start: 05-28-2024 End: 03-30-2025 take 1 tablet by mouth once daily at bedtime as needed Trazodone 50 mg Tablet Discontinued 50 MG PO Daily at bedtime as needed for Insomnia May 28, 2024 12:00am March 30, 2025 9:50am take 1 tablet by bret th at bedtime traZODone (Desyrel) 100 MG tablet Take 100 mg by mouth at bedtime Active Completed/Discontinued Medications Medication Drug Class(es) Dates Sig (Normalized) Sig (Original) bilberry extract 500 mg oral capsule (3 sources) Start: 05-25-2024 End: 03-30-2025 take 1 capsule by mouth once daily Bilberry (Vaccinium Myrtillus) 500 mg capsule Discontinued 500 MG PO Daily May 25, 2024 12:00am March 30, 2025 9:48am Start: 05-25-2024 take 500 mg by mouth once carleen y Bilberry (Vaccinium Myrtillus) Active 500 MG PO Daily May 25, 2024 12:00am cinnamon bark 500 mg oral capsule (3 sources) Start: 05-25-2024 End: 03-30-2025 take 1 capsule by mouth once daily Cinnamon Bark (Cinnamon) 500 mg capsule Discontinued 500 MG PO Daily May 25, 2024 12:00am March 30, 2025 9:48am Fenugreek Seed 610 mg capsule (1 source) Start: 05-25-2024 End: 03-30-2025 take 1 capsule by mouth once daily in the morning Fenugreek Seed 610 mg capsule Discontinued 610 MG PO .AM DAILY May 25, 2024 12:00am March 30, 2025 9:48am garlic preparation 345 mg oral capsule (3 sources) Non-Standardized Food Allergenic Extract Start: 05-25-2024 End: 03-30-2025 take 1 mg by mouth once daily Garlic 345 mg capsule Discontinued 1 MG PO Daily May 25, 2024 12:00am March 30, 2025 9:49am Start: 05-25-2024 take 1 mg by mouth once daily Garlic Active 1 MG PO Daily May 25, 2024 12:00am Semaglutide (3 sources) Start: 05-25-2024 End: 03-30-2025 Semaglutide (Ozempic) 0.25 m g or 0.5 mg (2 mg/3 mL) pen injector Discontinued 0.25 MG SUBCUT .once weekly May 25, 2024 12:00am March 30, 2025 9:47am Start: 05-25-2024 Semaglutide (O zempic) 0.25 mg or 0.5 mg (2 mg/3 mL) pen injector Active 0.25 MG SUBCUT .once weekly May 25, 2024 12:00am Turmeric extract (3 sources) Start: 05-25-2024 End: 03-30-2025 take 1 capsule by mouth once daily in the morning Turmeric 400 mg capsule Discontinued 400 MG PO .AM DAILY May 25, 2024 12:00am March 30, 2025 9:49am Start: 05-25-2024 take 400 mg by mouth once daily in the morning Turmeric Active 400 MG PO .AM DAILY May 25, 2024 12:00am Problems Active Problems Problem Classification Problem Date Documented Date Episodic/Chronic Administrative/social admission (8 sources) Patient encounter status; Translations: [Dietary counseling and surveillance] 09-09-2024 Episodic Diabetes mellitus with complications (20 sources) Type 1 diabetes mellitus with other diabetic neurological complication; Translations: [Polyneuropathy due to type 2 diabetes mellitus] Onset: 08-21-2022 Chronic Diabetes mellitus without complication (12 sources) Diabetes mellitus; Translations: [Type 2 diabetes mellitus without complications] Onset: 05-25-2024 05-25-2024 Chronic Diabetes mellitus without complication (20 sources) Insulin pump present; Translations: [Presence of insulin pump (external) (internal)] Onset: 08-21-2024 08-21-2024 Episodic Disorders of lipid metabolism (20 sources) Hyperlipidemia; Translations: [Hyperlipidemia, unspecified] Onset: 12-23-2023 05-25-2024 Chronic Essential hypertension (20 sources) Essential (primary) hypertension; Translations: [Hypertensive disorder] Onset: 08-27-2022 05-25-2024 Chronic Miscellaneous mental health disorders (20 sources) Premature ejaculation; Translations: [Premature ejaculation] Onset: 11-04-2023 11-04-2023 Chronic Mood disorders (20 sources) Moderate recurrent major depression; Translations: [Major depressive disorder, recurrent, moderate] Onset: 11-04-2023 Resolved: 03-25-2024 06-11-2024 Chronic Nonspecific chest pain (8 sources) Other chest pain; Translations: [Chest pain, unspecified] Onset: 12-20-2022 Episodic Nutritional deficiencies (20 sources) Vitamin D deficiency, unspecified; Translations: [Vitamin D deficiency] Onset: 08-27-2022 11-04-2023 Chronic Other aftercare (3 sources) custodial (current) use of insulin; Translations: [HEALTH INFORMATICS ADVISOR CURRENT USE OF INSULIN] Onset: 08-27-2022 Episodic Other aftercare (8 sources) Long-term current use of insulin; Translations: [custodial (current) use of insulin] 09-09-2024 Episodic Other aftercare (8 sources) Taking high risk medication; Translations: [Other rat exterminator (current) drug therapy] 09-09-2024 Episodic Other endocrine disorders (2 sources) Hypoglycemia; Translations: [Hypoglycemia, unspecified] 06-10-2025 Chronic Other lower respiratory disease (2 sources) Other forms of dyspnea; Translations: [Other forms of dyspnea] Onset: 11-26-2024 Episodic Other nutritional; endocrine; and metabolic disorders (2 sources) Body mass index 40+ - severely obese; Translations: [Morbid (severe) obesity due to excess calories] 05-25-2024 Chronic Other nutritional; endocrine; and metabolic disorders (2 sources) Morbid (severe) obesity due to excess calories; Translations: [Morbid obesity] Onset: 05-25-2024 05-28-2024 Chronic Other nutritional; endocrine; and metabolic disorders (12 sources) Morbid obesity; Translations: [Morbid (severe) obesity due to excess calories] Onset: 11-04-2023 11-04-2023 Chronic Other nutritional; endocrine; and metabolic disorders (1 source) Body mass index (BMI) 40.0-44.9, adult; Translations: [Body mass index [BMI] 40.0-44.9, adult] Onset: 05-25-2024 Chronic Other nutritional; endocrine; and metabolic disorders (20 sources) Severe obesity; Translations: [Class 3 severe obesity due to excess calories with serious comorbidity and body mass index (BMI) of 40.0 to 44.9 in adult ([facility])] Onset: 11-04-2023 09-09-2024 Chronic Other screening for suspected conditions (not mental disorders or infectious disease) (2 sources) Abnormal result of other cardiovascular function study; Translations: [Abnormal result of other cardiovascular function study] Onset: 11-26-2024 Episodic Residual codes; unclassified (20 sources) Obstructive sleep apnea syndrome; Translations: [Obstructive sleep apnea (adult) (pediatric)] Onset: 09-14-2024 09-14-2024 Chronic Suicide and intentional self-inflicted injury (6 sources) Suicidal thoughts; Translations: [Suicidal ideations] Onset: 05-25-2024 05-25-2024 Episodic Past or Other Problems Problem Classification Problem Date Documented Da te Episodic/Chronic Cardiac dysrhythmias (20 sources) Tachycardia, unspecified; Translations: [Sinus tachycardia] Onset: 11-26-2022 Episodic Intestinal infection (20 sources) Viral gastroenteritis; Translations: [Viral intestinal infection, unspecified] Onset: 01-28-2024 Resolved: 03-25-2024 03-25-2024 Episodic Residual codes; unclassified (20 sources) Bilateral lower limb edema; Translations: [Localized edema] Onset: 11-04-2023 11-04-2023 Episodic Spondylosis; intervertebral disc disorders; other back problems (20 sources) Chronic neck pain; Translations: [Cervicalgia] Onset: 11-04-2023 11-04-2023 Episodic Results Test Name Value Interpretation Reference Range Facility Glucose (Bld) [Mass/Vol]Orde red By: Yancy Grissom on 06-10-2025 Glucose Blood, POC 155 mg/dL [facility] Glucose (Bld) [Mass/Vol]Orde red By: Yancy Grissom on 05-07-2025 Glucose Blood, POC 254 mg/dL [facility] - Hematology and Cell countson 05-07-2025 HbA1c (Bld) [Mass fraction] 12.1 % [facility] No Panel InformationOrdered By: Yancy Grissom on 05-07-2025 [facility] Office Visiton 01-08-2025 Follow-up visit [id number] Hossein Zamarripa 1990 M Date Provider Department Center 01/08/2025 [id number] AGOSTO AMANDA [facility] Family History Problem Relation Age of Onset Hypertension Mother Hypertension Father Diabetes Father's Sister Cancer Father's Brother Coronary artery disease Father's Brother Comments: Stents Valvular heart disease Father's Brother Comments: Hx valve replacement Diabetes Father's Brother Hypertension Maternal Grandmother Dementia Maternal Grandmother Hypertension Maternal Grandfather Prostate cancer Maternal Grandfather Diabetes Paternal Grandmother Family Status - Relation Status Age at Mother Alive Father Alive Father's Sister Father's Brother Maternal Grandmother Maternal Grandfather Paternal Grandmother Level of Service:65733 [place] OFFICE/OUTPATIENT ESTABLISHED LOW MDM 20 MIN Normal [facility] Glucose (Bld) [Mass/Vol]Orde red By: Yancy Grissom on 01-01-2025 Glucose Blood, POC 160 mg/dL [facility] Laboratory - Hematology and Cell countson 01-01-2025 HbA1c (Bld) [Mass fraction] 9 % [facility] No Panel InformationOrdered By: Yancy Grissom on 01-01-2025 [facility] CREATININE, SERUMon 11-26-19 25 Creatinine [Mass/Vol] 0.91 mg/dL Normal 0.70-1.30 [facility] Comment on above: Performed By: #### L [id number] #### [facility] ([facility]) [address] [place] [address] GLOMERULAR FILTRATION RATE ML/MIN/1.73 SQ M.PREDICTED 113.4 mL/min/1.73m*2 Normal >60.0 [facility] Comment on above: Result Comment: The [facility]???s estimated glomerular filtration rate (eGFR) will no longer include consideration of race in its calculation. The National Kidney Foundation???s eGFR Task Force developed new recommendations for the estimation of the glomerular filtration rate in the [place] They recommend immediate implementation of the new equation refit without the race variable in all laboratories because the calculation does not include race. In addition to not including race in the calculation and reporting, it included diversity in its development, and has acceptable performance characteristics and potential consequences that do not disproportionately affect any one group of individuals. Performed By: #### L [id number] #### [facility] ([facility]) [address] [place] [address] CTA HEART CORONARY W IV CONT RAST W OR WO FFRCTon 11-26-2024 CTA HEART CORONARY W IV CONTRAST W OR WO FFRCT CTA HEART CORONARY W IV CONTRAST W OR WO FFRCT 11/26/2024 8:01 AM CLINICAL INDICATIONS: Abnormal stress test. Dyspnea on exertion. TECHNOLOGIST COMMENTS: Dyspnea on exertion QUESTION FOR RADIOLOGIST: Evaluate possible coronary artery stenosis. PROTOCOL: Gated cardiac CTA CONTRAST: 100 mL Omnipaque 350 TECHNIQUE: Multidetector CT angiogram was obtained using retrospective ECG gating. Imaging was performed from the level of the clavicles to the level of the hemidiaphragms. In order to provide better evaluation of the anatomy and disease process, advanced off-line 3-D post-processing techniques, including 3-D volume rendered images, curvilinear evaluation of the coronary arteries, stenosis calculation, ejection fraction evaluation were performed. Heart flow roadmap was also obtained as well as FFR. Medication administered in preparation for the examination is located in nursing documentation. All CT scans at this facility use dose modulation, iterative reconstruction, and/or weight based dosing when appropriate to reduce radiation dose to as low as reasonably achievable COMPARISON: None. CORONARY ARTERY ANGIOGRAM FINDINGS: Stenoses are reported as maximum percentage diameter stenosis. Stenosis grading is reported using the following scheme: Normal: no stenosis Mild: 1-49% stenosis Moderate: 50-70% stenosis Severe: >70% stenosis Occluded Dominance of the coronary artery system: right with normal origins and course. Left Main: The left main is a normal caliber vessel which gives rise to the LAD and circumflex arteries The left main with no significant plaque. No significant stenosis Left Anterior Descending Artery: The proximal left anterior descending artery and first diagonal branch with no significant plaque. The mid-distal LAD, D2 and D3 branches with no significant plaque. There is a no evidence of myocardial bridge in the LAD segment. There is mild stenosis in the proximal LAD of approximately 21%. There is also mild stenosis in the first diagonal branch of 23%. Left Circumflex Artery: The left circumflex artery and its obtuse marginal branches with no significant plaque. No significant stenosis. However, the vessel terminates as obtuse marginal branch which appears tortuous and demonstrates a segment of myocardial bridging in the proximal obtuse marginal branch. Right Coronary Artery: The right coronary artery and acute marginal branches with small calcified plaque. There is mild stenosis in the proximal RCA of around 13%. Cardiac Morphology: The right atrium is normal. The right ventricle is normal. The left atrium is normal. The left ventricle is normal. The pericardium is normal and there is no pericardial effusion. Cardiac Function: {reported only if retrospective ECG gating has been used} The calculated left ventricular ejection fraction is 66%, the left ventricular end-diastolic volume is 115 mL, and the left ventricular end-systolic volume is 39 mL. Stroke volume is 76 mL. There is normal wall motion of the left ventricle. Cardiac Devices and Indwelling Central Venous Lines: No central lines or pacer devices are visualized EXTRACARDIAC FINDINGS: Other lung findings: Visualized part of the lungs appear unremarkable. Airway: Normal. Pleura: Visualized part of the pleura appeared unremarkable. Thoracic aorta and great vessels: Normal in diameter. Pulmonary arteries: Normal. Heart and pericardium: Normal. Lymph nodes: No enlarged thoracic lymph nodes. Thoracic spine: Normal. Chest wall: Normal. Visualized upper abdomen: Normal. Heart flow roadmap revealed mild stenosis in the proximal and mid LAD. Suggestion of moderate stenosis in the distal RCA. Therefore, FFR is obtained and reveals ratio of 0.94 in the distal left circumflex and 0.92 and 0.88 in the distal LAD with 0.96 in the distal first diagonal branch. The ratio is slightly less at the distal RCA but auscultated at 0.83 suggesting no significant flow gradient appreciated and therefore, no significant stenosis in the RCA. IMPRESSION: 1. Normal coronary CTA anatomy without evidence for significant coronary artery stenosis.. Mild stenosis in the proximal RCA, LAD, first diagonal and left circumflex. Moderate stenosis in the distal RCA but not associated with flow gradient by FFR evaluation 2. Normal global and regional wall motion and function of the LV. Normal ejection fraction of 66% 3. 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 4. No other acute pathology is appreciated in visualized part of the chest Electronically signed: Celestina Pedersen MD. Not Vldtd Invalid Interpretation Code [facility] Labon 11-26-2024 Lab [id number] Hossein Zamarripa 1990 M Date Provider Department Center 11/26/2024 [id number] Family History Problem Relation Age of Onset Hypertension Mother Hypertension Father Diabetes Father's Sister Cancer Father's Brother Coronary artery disease Father's Brother Comments: Stents Valvular heart disease Father's Brother Comments: Hx valve replacement Diabetes Father's Brother Hypertension Maternal Grandmother Dementia Maternal Grandmother Hypertension Maternal Grandfather Prostate cancer Maternal Grandfather Diabetes Paternal Grandmother Family Status - Relation Status Age at Mother Father Father's Sister Father's Brother Maternal Grandmother Maternal Grandfather Paternal Grandmother Normal [facility] ALBUMIN, RANDOM URINE W/CREA Jessi 11-20-2024 ALBUMIN, URINE <0.2 Normal See Note: [facility] Comment on above: Result Comment: Refe rence Range: Reference Range Not established Performed By: #### 1 0314, 7600, 6517, 53165, 372 #### [facility] [place] [address] [address] Clinical Assessment Manager: Ayaan Durant MD ALBUMIN/CREATININE RATIO, RANDOM URINE NOTE Normal <30 [facility] Comment on above: Result Comment: NOTE : The urine albumin value is less than 0.2 mg/dL therefore we are unable to calculate excretion and/or creatinine ratio. The ADA defines abnormalities in albumin excretion as follows: Albuminuria Category Result (mg/g creatinine) Normal to Mildly increased <30 Moderately increased 30-299 Severely increased > OR = 300 The ADA recommends that at least two of three specimens collected within a 3-6 month period be abnormal before considering a patient to be within a diagnostic category. Performed By: #### 1 0314, 7600, 6517, 96546, 372 #### [facility] [place] [address] Clinical Assessment Manager: Ayaan Durant MD Creatinine (U) [Mass/Vol] 102 mg/dL Normal 20-320 [facility] Comment on above: Performed By: #### 1 0314, 7600, 6517, 06175, 372 #### [facility] [place] [address] Clinical Assessment Manager: Ayaan Durant MD C-PEPTIDEon 11-20-2024 C-PEPTIDE 2.49 ng/mL Normal 0.80-3.85 [facility] Comment on above: Performed By: #### 1 0314, 7600, 6517, 97844, 372 #### [facility] [place] [address] Clinical Assessment Manager: Ayaan Durant MD LIPID PANEL, [facility] 11-01 Cholesterol [Mass/Vol] 142 mg/dL Normal <200 [facility] Comment on above: Order Comment: FASTI NG:YES FASTING: YES Performed By: #### 1 0314, 7600, 6517, 42678, 372 #### [facility] [place] [address] Clinical Assessment Manager: Ayaan Durant MD Cholesterol in HDL [Mass/Vol] 25 mg/dL Low > OR = 40 [facility] Comment on above: Order Comment: FASTI NG:YES FASTING: YES Performed By: #### 1 0314, 7600, 6517, 23059, 372 #### [facility] [address], [address] [place] [address] Clinical Assessment Manager: Ayaan Durant MD Cholesterol in LDL [Mass/Vol] 83 mg/dL Normal [facility] Comment on above: Order Comment: FASTI NG:YES FASTING: YES Result Comment: Refe rence range: <100 Desirable range <100 mg/dL for primary prevention; <70 mg/dL for patients with CHD or diabetic patients with > or = 2 CHD risk factors. LDL-C is now calculated using the João calculation, which is a validated novel method providing better accuracy than the Friedewald equation in the estimation of LDL-C. Ganesh SS et al. HARRISON. 2013;310(19): 8060-3780 (http://education.[employer]/faq/IVT212) Performed By: #### 1 0314, 7600, 6517, 32744, 372 #### [facility] [address], [address] [place] [address] Clinical Assessment Manager: Ayaan Durant MD Cholesterol.total/Yane sterol in HDL [Mass ratio] 5.7 {ratio} High <5.0 [facility] Comment on above: Order Comment: FASTI NG:YES FASTING: YES Performed By: #### 1 0314, 7600, 6517, 45689, 372 #### [facility] [address], [address] [place] [address] Clinical Assessment Manager: Ayaan Durant MD NON HDL CHOLESTEROL 117 mg/dL (calc) Normal <130 [facility] Comment on above: Order Comment: FASTI NG:YES FASTING: YES Result Comment: For patients with diabetes plus 1 major ASCVD risk factor, treating to a non-HDL-C goal of <100 mg/dL (LDL-C of <70 mg/dL) is considered a therapeutic option. Performed By: #### 1 0314, 7600, 6517, 59128, 372 #### [facility] [address], [address] [place] [address] Clinical Assessment Manager: Ayaan Durant MD Triglyceride [Mass/Vol] 255 mg/dL High <150 [facility] Comment on above: Order Comment: FASTI NG:YES FASTING: YES Result Comment: If a non-fasting specimen was collected, consider repeat triglyceride testing on a fasting specimen if clinically indicated. Richard et al. J. of Clin. Lipidol. 2015;9:129-169. Performed By: #### 1 0314, 7600, 6517, 85538, 372 #### [facility] [address], [address] [place] [address] Clinical Assessment Manager: Ayaan Durant MD RENAL FUNCTION PANELon 11-20 Albumin [Mass/Vol] 4.8 g/dL Normal 3.6-5.1 [facility] Comment on above: Performed By: #### 1 0314, 7600, 6517, 37927, 372 #### [facility] [address], [address] [place] [address] Clinical Assessment Manager: Ayaan Durant MD BUN/CREATININE RATIO SEE NOTE: Normal 6-22 [facility] Comment on above: Result Comment: Not Reported: BUN and Creatinine are within reference range. Performed By: #### 1 0314, 7600, 6517, 19396, 372 #### [facility] [place] [address] Clinical Assessment Manager: Ayaan Durant MD Calcium [Mass/Vol] 9.8 mg/dL Normal 8.6-10.3 [facility] Comment on above: Performed By: #### 1 0314, 7600, 6517, 85838, 372 #### [facility] [address], [address] [place] [address] Clinical Assessment Manager: Ayaan Durant MD Chloride [Moles/Vol] 98 mmol/L Normal 98-110 [facility] Comment on above: Performed By: #### 1 0314, 7600, 6517, 95132, 372 #### [facility] [address], [address] [place] [address] Clinical Assessment Manager: Ayaan Durant MD CO2 [Moles/Vol] 32 mmol/L Normal 20-32 [facility] Comment on above: Performed By: #### 1 4, 0, 6517, 20392, 372 #### [facility] [place] [address] Clinical Assessment Manager: Ayaan Durant MD Creatinine [Mass/Vol] 0.84 mg/dL Normal 0.60-1.[address] [facility] Comment on above: Performed By: #### 1 4, 0, 6517, 84686, 372 #### [facility] [place] [address] Clinical Assessment Manager: Ayaan Durant MD GFR/1.73 sq M.predicted among non-blacks MDRD (S/P/Bld) [Vol rate/Area] 117 mL/min/{1.73_m2} Normal > OR = 60 [facility] Comment on above: Performed By: #### 1 313, 0, 6517, 21707, 372 #### [facility] [place] [address] Clinical Assessment Manager: Ayaan Durant MD Glucose [Mass/Vol] 331 mg/dL High 65-99 [facility] Comment on above: Result Comment: Fasting reference interval For someone without known diabetes, a glucose value >125 mg/dL indicates that they may have diabetes and this should be confirmed with a follow-up test. Performed By: #### 1 313, 0, 6517, 63759, 372 #### [facility] [place] [address] Clinical Assessment Manager: Ayaan Durant MD Phosphate [Mass/Vol] 3.4 mg/dL Normal 2.5-4.5 [facility] Comment on above: Performed By: #### 1 031, 7600, 6517, 65255, 372 #### [facility] [place] [address] Clinical Assessment Manager: Ayaan Durant MD Potassium [Moles/Vol] 4.5 mmol/L Normal 3.5-5.[address] [facility] Comment on above: Performed By: #### 1 0314, 7600, 6517, 64113, 372 #### [facility] [address], [address] [place] [address] Clinical Assessment Manager: Ayaan Durant MD Sodium [Moles/Vol] 136 mmol/L Normal 135-146 [facility] Comment on above: Performed By: #### 1 0314, 7600, 6517, 53954, 372 #### [facility] [address], [address] [place] [address] Clinical Assessment Manager: Ayaan Durant MD Urea nitrogen [Mass/Vol] 16 mg/dL Normal 7-25 [facility] Comment on above: Performed By: #### 1 0314, 7600, 6517, 79545, 372 #### [facility] [address], [address] [place] [address] Clinical Assessment Manager: Ayaan Durant MD VITAMIN D,25-OH,TOTAL,IAon 0 11-20-2024 VITAMIN D,25-OH,TOTAL,IA 19 ng/mL Low 30-100 [facility] Comment on above: Result Comment: Parvez min D Status 25-OH Vitamin D: Deficiency: <20 ng/mL Insufficiency: 20 - 29 ng/mL Optimal: > or = 30 ng/mL For 25-OH Vitamin D testing on patients on D2-supplementation and patients for whom quantitation of D2 and D3 fractions is required, the QuestAssureD(TM) 25-OH VIT D, (D2,D3), LC/MS/MS is recommended: order code 78849 (patients >2yrs). See Note 1 Note 1 For additional information, please refer to http://education.[employer]/faq/CED944 (This link is being provided for informational/ educational purposes only.) Performed By: #### 1 0314, 7600, 6517, 67552, 372 #### [facility] [address], [address] [place] [address] Clinical Assessment Manager: Ayaan Durant MD 37on 10-28-2024 37 Changing metoprolol 50 mg to 100 mg due to increased heart. CTA coronary test Normal [facility] Office Visiton 10-28-2024 Follow-up visit [id number] Hossein Zamarripa 1990 M Date Provider Department Center 10/28/2024 [id number] AGOSTO [facility] Family History Problem Relation Age of Onset Hypertension Mother Hypertension Father Diabetes Father's Sister Cancer Father's Brother Coronary artery disease Father's Brother Comments: Stents Valvular heart disease Father's Brother Comments: Hx valve replacement Diabetes Father's Brother Hypertension Maternal Grandmother Dementia Maternal Grandmother Hypertension Maternal Grandfather Prostate cancer Maternal Grandfather Diabetes Paternal Grandmother Family Status - Relation Status Age at Mother Father Father's Sister Father's Brother Maternal Grandmother Maternal Grandfather Paternal Grandmother Level of Service:65188 [place] OFFICE/OUTPATIENT ESTABLISHED LOW MDM 20 MIN Normal [facility] Glucose (Bld) [Mass/Vol]Orde red By: Yancy Grissom on 09-09-2024 Glucose Blood, POC 110 mg/dL [facility] Laboratory - Hematology and Cell countson 09-09-2024 HbA1c (Bld) [Mass fraction] 7.6 % [facility] No Panel InformationOrdered By: Yancy Grissom on 09-09-2024 [facility] Capillary blood glucose chuyita urement by glucometer (mass/volume)Ordered By: Dustin Painter on 05-28-2024 Glucose [Mass/Vol] 429 mg/dL Off scale high [facility] Comment on above: Random Glucose Refer ence Range is dependent on time and content of last meal. Glucose of more than 200 mg/dL in a nonstressed, ambulatory subject supports the diagnosis of Diabetes Mellitus. Result Comment: [facility] Glucose Reference Range is dependent on time and content of last meal. Glucose of more than 200 mg/dL in a nonstressed, ambulatory subject supports the diagnosis of Diabetes Mellitus. Performed By: #### G LULS #### Point of Care testing , Glucose Poct Glucometerson 0 05-28-2024 Commemt1 Normal [facility] Comment on above: Result Comment: Glu2 : Will Repeat Test PERFORMED BY: [facility] [address] [place] [address] PATHOLOGIST PLASTICS SPREADING MACHINE OPERATOR ANDRES HAY M.D. Performed By: #### G LULS #### Point of Care testing , Commemt1 Normal [facility] Comment on above: Result Comment: Glu2 : WILL NOTIFY DR/RN PERFORMED BY: [address] [place] [address] PATHOLOGIST PLASTICS SPREADING MACHINE OPERATOR ANDRES HAY M.D. Performed By: #### G LULS #### Point of Care testing , Glucose [Mass/Vol] 447 mg/dL Off scale high [facility] Comment on above: Result Comment: [place] [facility] Glucose Reference Range is dependent on time and content of last meal. Glucose of more than 200 mg/dL in a nonstressed, ambulatory subject supports the diagnosis of Diabetes Mellitus. Performed By: #### G LULS #### Point of Care testing , Commemt1 Glu2: Cleaned Meter Normal [facility] Comment on above: Result Comment: PERF ORMED BY: [place] [address] PATHOLOGIST PLASTICS SPREADING MACHINE OPERATOR ANDRES HAY M.D. Performed By: #### G LULS #### Point of Care testing , Glucose [Mass/Vol] 272 mg/dL Normal [facility] Comment on above: Result Comment: [place] [facility] Glucose Reference Range is dependent on time and content of last meal. Glucose of more than 200 mg/dL in a nonstressed, ambulatory subject supports the diagnosis of Diabetes Mellitus. Performed By: #### G LULS #### Point of Care testing , Commemt1 Glu2: Cleaned Meter Normal [facility] Comment on above: Result Comment: PERF ORMED BY: [place] [address] PATHOLOGIST PLASTICS SPREADING MACHINE OPERATOR ANDRES HAY M.D. Performed By: #### G LULS #### Point of Care testing , Glucose [Mass/Vol] 301 mg/dL Normal [facility] Comment on above: Result Comment: [place] [facility] Glucose Reference Range is dependent on time and content of last meal. Glucose of more than 200 mg/dL in a nonstressed, ambulatory subject supports the diagnosis of Diabetes Mellitus. Performed By: #### G LULS #### Point of Care testing , No Panel InformationOrdered By: Dustin Painter on 05-28-2024 Bedside Glucose Comment See comment [facility] Comment on above: Glu2: Will Repeat Te st Glucose Poct Glucometerson 0 05-27-2024 Commemt1 Glu2: Cleaned Meter Normal [facility] Comment on above: Result Comment: PERF ORMED BY: [place] [address] PATHOLOGIST PLASTICS SPREADING MACHINE OPERATOR ANDRES HAY M.D. Performed By: #### G LULS #### Point of Care testing , Glucose [Mass/Vol] 242 mg/dL Normal [facility] Comment on above: Result Comment: [place] Glucose Reference Range is dependent on time and content of last meal. Glucose of more than 200 mg/dL in a nonstressed, ambulatory subject supports the diagnosis of Diabetes Mellitus. Performed By: #### G LULS #### Point of Care testing , Commemt1 Glu2: Cleaned Meter Normal [facility] Comment on above: Result Comment: PERF ORMED BY: [place] [address] PATHOLOGIST PLASTICS SPREADING MACHINE OPERATOR ANDRES HAY M.D. Performed By: #### G LULS #### Point of Care testing , Glucose [Mass/Vol] 295 mg/dL Normal [facility] Comment on above: Result Comment: [place] Glucose Reference Range is dependent on time and content of last meal. Glucose of more than 200 mg/dL in a nonstressed, ambulatory subject supports the diagnosis of Diabetes Mellitus. Performed By: #### G LULS #### Point of Care testing , Commemt1 Glu2: Cleaned Meter Normal [facility] Comment on above: Result Comment: PERF ORMED BY: [place] [id number] PATHOLOGIST PLASTICS SPREADING MACHINE OPERATOR ANDRES HAY M.D. Performed By: #### G LULS #### Point of Care testing , Glucose [Mass/Vol] 348 mg/dL Normal [facility] Comment on above: Result Comment: [place] [facility] Glucose Reference Range is dependent on time and content of last meal. Glucose of more than 200 mg/dL in a nonstressed, ambulatory subject supports the diagnosis of Diabetes Mellitus. Performed By: #### G LULS #### Point of Care testing , Glucose [Mass/Vol] 192 mg/dL Normal [facility] Comment on above: Result Comment: [place] [facility] Glucose Reference Range is dependent on time and content of last meal. Glucose of more than 200 mg/dL in a nonstressed, ambulatory subject supports the diagnosis of Diabetes Mellitus. PERFORMED BY: [place] [address] PATHOLOGIST PLASTICS SPREADING MACHINE OPERATOR ANDRES HAY M.D. Performed By: #### G LULS #### Point of Care testing , Commemt1 Glu2: Cleaned Meter Normal [facility] Comment on above: Result Comment: PERF ORMED BY: [address] [place] [address] PATHOLOGIST PLASTICS SPREADING MACHINE OPERATOR ANDRES HAY M.D. Performed By: #### G LULS #### Point of Care testing , Glucose [Mass/Vol] 321 mg/dL Normal [facility] Comment on above: Result Comment: [place] [facility] Glucose Reference Range is dependent on time and content of last meal. Glucose of more than 200 mg/dL in a nonstressed, ambulatory subject supports the diagnosis of Diabetes Mellitus. Performed By: #### G LULS #### Point of Care testing , Commemt1 Glu2: Cleaned Meter Normal [facility] Comment on above: Result Comment: PERF ORMED BY: [place] [address] PATHOLOGIST PLASTICS SPREADING MACHINE OPERATOR ANDRES HAY M.D. Performed By: #### G LULS #### Point of Care testing , Glucose [Mass/Vol] 200 mg/dL Normal [facility] Comment on above: Result Comment: [place] om Glucose Reference Range is dependent on time and content of last meal. Glucose of more than 200 mg/dL in a nonstressed, ambulatory subject supports the diagnosis of Diabetes Mellitus. Performed By: #### G LULS #### Point of Care testing , Cholesterol [Mass/volume] in Serum or PlasmaOrdered By: Dustin Painter on 05-26-2024 Cholesterol [Mass/Vol] 166 mg/dL Normal 140-200 [facility] Comment on above: Chol less than 200 m g/dl low riskChol 201-239 mg/dl borderline riskChol 240 mg/dl and greater high risk Result Comment: Chol less than 200 mg/dl low risk Chol 201-239 mg/dl borderline risk Chol 240 mg/dl and greater high risk Performed By: #### G LULS #### Point of Care testing , Cholesterol in LDL Calc [Mas s/Vol]Ordered By: Dustin Painter on 05-26-2024 Cholesterol in LDL [Mass/Vol] 87 mg/dL 0-100 [facility] Comment on above: LDL ATP III CLASSIFI CATIONLDL less than 100 mg/dL OptimalLDL 100-129 mg/dL Near or above optimalLDL 130-159 mg/dL Borderline highLDL 160-189 mg/dL HighLDL greater than 189 mg/dL Very high Cholesterol in VLDL Calc [Ma ss/Vol]Ordered By: Dustin Painter on 05-26-2024 Cholesterol in VLDL [Mass/Vol] 51 mg/dL [facility] ECG 12 lead ECGon 05-26-2024 ECG 12 lead ECG [facility] [place] [address] Electrocardiograph Report Signed Patient: Hossein Zamarripa MR#: [id number] : 1990 Acct:[id number] Age/Sex: 33 / M ADM Date: 05/25/24 Loc: Room: [address] [place] [address] Type: ADM IN Attending Dr: Dustin Painter MD Ordering Provider: Dustin Painter MD Date of Service: 05/26/24 ECG/ECG 12 lead ECG: baseline Copies to: Test Reason : Blood Pressure : */* mmHG Vent. Rate : 78 BPM Atrial Rate : 78 BPM P-R Int : 160 ms QRS Dur : 84 ms QT Int : 382 ms P-R-T Axes : 56 107 2 degrees QTcB Int : 435 ms Normal sinus rhythm Rightward axis Septal infarct , age undetermined Abnormal ECG When compared with ECG of 25-May-2024 17:21, Septal infarct is now present Confirmed by Hugh Perez ([id number]) on 05/26/2024 10:17:38 PM Referred By: Electronically Signed By: Hugh Perez Transcribed By: MUS Signed By Hugh Perez MD 05/26/24 2217 Normal [facility] Glucose Poct Glucometerson 0 05-26-2024 Commemt1 Glu2: Cleaned Meter Normal [facility] Comment on above: Result Comment: PERF ORMED BY: [address] [place] [address] PATHOLOGIST PLASTICS SPREADING MACHINE OPERATOR ANDRES HAY M.D. Performed By: #### G LULS #### Point of Care testing , Glucose [Mass/Vol] 332 mg/dL Normal [facility] Comment on above: Result Comment: [facility] Glucose Reference Range is dependent on time and content of last meal. Glucose of more than 200 mg/dL in a nonstressed, ambulatory subject supports the diagnosis of Diabetes Mellitus. Performed By: #### G LULS #### Point of Care testing , Commemt1 Normal [facility] Comment on above: Result Comment: Glu2 : WILL NOTIFY DR/RN Performed By: #### G LULS #### Point of Care testing , Commemt2 Cleaned Meter Normal [facility] Comment on above: Result Comment: PERF ORMED BY: [facility] [address] [place] [address] PATHOLOGIST PLASTICS SPREADING MACHINE OPERATOR ANDRES HAY M.D. Performed By: #### G LULS #### Point of Care testing , Glucose [Mass/Vol] 355 mg/dL Normal [facility] Comment on above: Result Comment: [place] om Glucose Reference Range is dependent on time and content of last meal. Glucose of more than 200 mg/dL in a nonstressed, ambulatory subject supports the diagnosis of Diabetes Mellitus. Performed By: #### G LULS #### Point of Care testing , Commemt1 Glu2: Cleaned Meter Normal [facility] Comment on above: Result Comment: PERF ORMED BY: [address] [place] [id number] PATHOLOGIST PLASTICS SPREADING MACHINE OPERATOR ANDRES HAY M.D. Performed By: #### G LULS #### Point of Care testing , Glucose [Mass/Vol] 329 mg/dL Normal [facility] Comment on above: Result Comment: [place] om Glucose Reference Range is dependent on time and content of last meal. Glucose of more than 200 mg/dL in a nonstressed, ambulatory subject supports the diagnosis of Diabetes Mellitus. Performed By: #### G LULS #### Point of Care testing , Glucose [Mass/Vol] 244 mg/dL Normal [facility] Comment on above: Result Comment: [place] om Glucose Reference Range is dependent on time and content of last meal. Glucose of more than 200 mg/dL in a nonstressed, ambulatory subject supports the diagnosis of Diabetes Mellitus. PERFORMED BY: [address] [place] [address] PATHOLOGIST PLASTICS SPREADING MACHINE OPERATOR ANDRES HAY M.D. Performed By: #### G LULS #### Point of Care testing , Commemt1 Glu2: Cleaned Meter Normal [facility] Comment on above: Result Comment: PERF ORMED BY: [address] [place] [id number] PATHOLOGIST PLASTICS SPREADING MACHINE OPERATOR ANDRES HAY M.D. Performed By: #### G LULS #### Point of Care testing , Glucose [Mass/Vol] 206 mg/dL Normal [facility] Comment on above: Result Comment: [place] om Glucose Reference Range is dependent on time and content of last meal. Glucose of more than 200 mg/dL in a nonstressed, ambulatory subject supports the diagnosis of Diabetes Mellitus. Performed By: #### G LULS #### Point of Care testing , Lipid Panelon 05-26-2024 LDL Cholesterol,Calculated 87 mg/dL Normal 0-100 [facility] Comment on above: Result Comment: LDL ATP III CLASSIFICATION LDL less than 100 mg/dL Optimal LDL 100-129 mg/dL Near or above optimal LDL 130-159 mg/dL Borderline high LDL 160-189 mg/dL High LDL greater than 189 mg/dL Very high Performed By: #### G LULS #### Point of Care testing , Triglyceride w/Reflex 257 mg/dL High 0-149 [facility] Comment on above: Result Comment: TRIG ATP III CLASSIFICATION TRIG less than 150 mg/dL Normal TRIG 150-199 mg/dL Borderline high TRIG 200-500 mg/dL High TRIG greater than 500 mg/dL Very high Standard traceable to the Center for Disease Conrtrol and Prevention (CDC) test method. Performed By: #### G LULS #### Point of Care testing , VLDL CHOLESTEROL 51 mg/dL Normal [facility] Comment on above: Performed By: #### G LULS #### Point of Care testing , No Panel InformationOrdered By: Dustin Painter on 05-26-2024 Bedside Glucose #2 Comment Cleaned meter [facility] Serum or plasma high density lipoprotein (HDL) cholesterol measurementOrdered By: Dustin Painter on 05-26-2024 Cholesterol in HDL [Mass/Vol] 28 mg/dL Normal 23-92 [facility] Comment on above: HDL CHOL ATP-III CLA SSIFICATION Cardiovascular RiskHDL > or equal to 60 mg/dL LOWHDL < 40 mg/dL HIGH Result Comment: HDL CHOL ATP-III CLASSIFICATION Cardiovascular Risk HDL > or equal to 60 mg/dL LOW HDL < 40 mg/dL HIGH Performed By: #### G LULS #### Point of Care testing , Serum or plasma total choles terol/high density lipoprotein (HDL) cholesterol mass ratOrdered By: Dustin Painter on 05-26-2024 Cholesterol.total/Yane sterol in HDL [Mass ratio] 5.9 {ratio} Normal <5.0 [facility] Comment on above: Performed By: #### G LULS #### Point of Care testing , Thyroid Stim Hormone w/Rflxo n 05-26-2024 Thyroid Stim Hormone w/Rflx 1.61 u[iU]/mL Normal 0.45-5.33 [facility] Comment on above: Performed By: #### G LULS #### Point of Care testing , Thyrotropin [Units/volume] i n Serum or PlasmaOrdered By: Dustin Painter on 05-26-2024 TSH Qn 1.61 m[IU]/L 0.45-5.33 [facility] Triglyceride [Mass/volume] i n Serum or PlasmaOrdered By: Dustin Painter on 05-26-2024 Triglyceride [Mass/Vol] 257 mg/dL High 0-149 [facility] Comment on above: TRIG ATP III CLASSIF ICATIONTRIG less than 150 mg/dL NormalTRIG 150-199 mg/dL Borderline highTRIG 200-500 mg/dL High TRIG greater than 500 mg/dL Very highStandard traceable to the Center for Disease Conrtrol and Prevention (CDC) test method. Vitamin D 25 Hydroxy Totalon 05-26-2024 Vitamin D 25 Hydroxy Total 15.6 ng/mL Low 30-100 [facility] Comment on above: Result Comment: PARVEZ MIN D STATUS 25(OH)VITAMIN D RANGE (ng/mL) Deficient <20 Insufficient 20 to <30 Sufficient 30 to 100 Reference: Azar Higgins, Precious LAND, et al. Evaluation,treatment, and prevention of vitamin D deficiency; an Endocrine Society clinical practice guideline. JCEM. 2010; 96(7):1911-30. PERFORMED BY: [address] [place] [address] PATHOLOGIST PLASTICS SPREADING MACHINE OPERATOR ANDRES HAY M.D. Performed By: #### G LULS #### Point of Care testing , Vitamin D+Metabolites [Mass/ volume] in Serum or PlasmaOrdered By: Dustin Painter on 05-26-2024 Vitamin D+Metabolites [Mass/Vol] 15.6 ng/mL Low 30-100 [facility] Comment on above: VITAMIN D STATUS 25( [place])VITAMIN D RANGE (ng/mL) Deficient <20 Insufficient 20 to <30Sufficient 30 to 100Reference: Azar Higgins, Precious LAND et al. Evaluation,treatment, and prevention of vitamin D deficiency; an Endocrine Society clinical practice guideline. JCEM. 2010; 96(7):1911-30. A1C with Estimated Average Ritchie lino 05-25-2024 Glucose [Mass/Vol] 200 mg/dL Normal [facility] Comment on above: Order Comment: Comme nt ok to use previously drawn blood Result Comment: PERF ORMED BY: [facility] [address] [place] [address] PATHOLOGIST PLASTICS SPREADING MACHINE OPERATOR ANDRES HAY M.D. Performed By: #### A 1C [facility] eA #### [facility] [address] Alanine aminotransferase [En zymatic activity/volume] in Serum or PlasmaOrdered By: Kellie Rivero on 05-25-2024 ALT [Catalytic activity/Vol] 53 U/L High 7-52 [facility] Comment on above: Performed By: #### G LULS #### Point of Care testing , Albumin [Mass/volume] in Ser um or Plasma by Bromocresol green (BCG) dye binding methoOrdered By: Kellie Rivero on 05-25-2024 Albumin BCG dye [Mass/Vol] 4.5 g/dL 3.5-5.7 [facility] Alkaline phosphatase [Enzyma tic activity/volume] in Serum or PlasmaOrdered By: Kellie Rivero on 05-25-2024 ALP [Catalytic activity/Vol] 45 U/L Normal 34-104 [facility] Comment on above: Performed By: #### G LULS #### Point of Care testing , Amphetamine Screen Ql (U)Ord ered By: Kellie Rivero on 05-25-2024 Amphetamines Ql (U) Negative Negative [facility] Aspartate aminotransferase [ Enzymatic activity/volume] in Serum or PlasmaOrdered By: Kellie Rivero on 05-25-2024 AST [Catalytic activity/Vol] 36 U/L Normal 13-39 [facility] Comment on above: Performed By: #### G LULS #### Point of Care testing , Automated basophil %Ordered By: Kellie Rivero on 05-25-2024 Basophils/100 WBC (Bld) 0.5 % Normal . [facility] Comment on above: Performed By: #### G LULS #### Point of Care testing , Automated basophil countOrde red By: Kellie Rivero on 05-25-2024 Basophils (Bld) [#/Vol] 0.0 10*3/uL Normal 0.0-0.2 [facility] Comment on above: Result Comment: PERF ORMED BY: [facility] [place] [address] PATHOLOGIST PLASTICS SPREADING MACHINE OPERATOR ANDRES HAY M.D. Performed By: #### G LULS #### Point of Care testing , Automated blood monocyte cou ntOrdered By: Kellie Rivero on 05-25-2024 Monocytes (Bld) [#/Vol] 0.7 10*3/uL Normal 0.0-0.8 [facility] Comment on above: Performed By: #### G LULS #### Point of Care testing , Automated eosinophil %Ordere d By: Kellie Rivero on 05-25-2024 Eosinophils/100 WBC (Bld) 0.7 % Normal . [facility] Comment on above: Performed By: #### G LULS #### Point of Care testing , Automated eosinophil countOr dered By: Kellie Rivero on 05-25-2024 Eosinophils (Bld) [#/Vol] 0.1 10*3/uL Normal 0.0-0.45 [facility] Comment on above: Performed By: #### G LULS #### Point of Care testing , Automated monocyte %Ordered By: Kellie Rivero on 05-25-2024 Monocytes/100 WBC (Bld) 8.8 % Normal . [facility] Comment on above: Performed By: #### G LULS #### Point of Care testing , Automated neutrophil %Ordere d By: Kellie Rivero on 05-25-2024 Neutrophils/100 WBC (Bld) 65.9 % Normal . [facility] Comment on above: Performed By: #### G LULS #### Point of Care testing , Bacteria [Presence] in Urine by AutomatedOrdered By: Kellie Rivero on 05-25-2024 Bacteria Auto Ql (U) Rare [HPF] None Seen [facility] Barbiturates [Presence] in U rine by Screen methodOrdered By: Kellie Rivero on 05-25-2024 Barbiturates Screen Ql (U) Negative Negative [facility] Benzodiazepines Screen Ql (U )Ordered By: Kellie Rivero on 05-25-2024 Benzodiazepines Ql (U) Negative Negative [facility] Benzoylecgonine [Presence] i n Urine by Screen methodOrdered By: Kellie Rivero on 05-25-2024 Benzoylecgonine Screen Ql (U) Negative Negative [facility] Bilirubin Test strip Ql (U)O rdered By: Kellie Rivero on 05-25-2024 Bilirubin Ql (U) Negative Negative [facility] Bilirubin.total [Mass/volume ] in Serum or PlasmaOrdered By: Kellie Rivero on 05-25-2024 Bilirubin [Mass/Vol] 0.5 mg/dL Normal 0.3-1.0 [facility] Comment on above: Performed By: #### G LULS #### Point of Care testing , Calcium [Mass/volume] in Ser um or PlasmaOrdered By: Kellie Rivero on 05-25-2024 Calcium [Mass/Vol] 9.6 mg/dL Normal 8.6-10.3 [facility] Comment on above: Performed By: #### G LULS #### Point of Care testing , Cannabinoids [Presence] in U rine by Screen methodOrdered By: Kellie Rivero on 05-25-2024 Cannabinoids Screen Ql (U) Negative Negative [facility] Comment on above: These are unconfirme d results and should not be used for legal purposes. Drug Cut-Off Concentration: AMPH 1000 ng/mL RICHARD 200 ng/mL MAIA 200 ng/mL COCM 300 ng/mL OP 300 ng/mL PCP 25 ng/mL THC 20 ng/mL Carbon dioxide, total [Moles /volume] in Serum or PlasmaOrdered By: Kellie Rivero on 05-25-2024 CO2 [Moles/Vol] 26.3 mmol/L Normal 21.0-31.0 [facility] Comment on above: Performed By: #### G LULS #### Point of Care testing , Chloride [Moles/volume] in S narciso or PlasmaOrdered By: Kellie Rivero on 05-25-2024 Chloride [Moles/Vol] 104 mmol/L Normal 98-107 [facility] Comment on above: Performed By: #### G LULS #### Point of Care testing , Color of Urine by AutoOrdere d By: Kellie Rivero on 05-25-2024 Color (U) Yellow Normal Yellow [facility] Comment on above: Order Comment: Name Collection Type:: Clean-Voided Midstream Performed By: #### A DDONUAPLUS, URDS #### [facility] [address] Complete Blood Count Auto Di ffon 05-25-2024 Mean Corpuscular HGB Conc 34.9 g/dL Normal 32.5-35.6 [facility] Comment on above: Performed By: #### G LULS #### Point of Care testing , Monocytes/100 WBC (Bld) 16.56 % Normal 0.00-20.00 [facility] Comment on above: Performed By: #### G LULS #### Point of Care testing , NRBC% 0.1 /100{WBC} Normal 0-0.5 [facility] Comment on above: Performed By: #### G LULS #### Point of Care testing , Comprehensive Metabolic Pane munir 05-25-2024 Albumin [Mass/Vol] 4.5 g/dL Normal 3.5-5.7 [facility] Comment on above: Performed By: #### G LULS #### Point of Care testing , Creatinine Clr Calc Pharmacy 163.62 Normal [facility] Comment on above: Result Comment: PERF ORMED BY: [facility] [address] [place] [address] PATHOLOGIST PLASTICS SPREADING MACHINE OPERATOR ANDRES HAY M.D. Performed By: #### G LULS #### Point of Care testing , GFR/1.73 sq M.predicted MDRD (S/P/Bld) [Vol rate/Area] mL/min/{1.73_m2} Normal [facility] Comment on above: Performed By: #### G LULS #### Point of Care testing , Creatinine [Mass/volume] in Serum or PlasmaOrdered By: Kellie Rivero on 05-25-2024 Creatinine [Mass/Vol] 0.83 mg/dL Normal 0.70-1.30 [facility] Comment on above: Performed By: #### G LULS #### Point of Care testing , Dipstick and Microscopicon 0 05-25-2024 Bacteria,Urine Rare Normal None Seen [facility] Comment on above: Order Comment: Name Collection Type:: Clean-Voided Midstream Performed By: #### A DDONUAPLUS, URDS #### [address] Bilirubin,Urine Negative Normal Negative [facility] Comment on above: Order Comment: Name Collection Type:: Clean-Voided Midstream Performed By: #### A DDONUAPLUS, URDS #### [address] Glucose Ql (U) Normal Normal Normal [facility] Comment on above: Order Comment: Name Collection Type:: Clean-Voided Midstream Performed By: #### A DDONUAPLUS, URDS #### [place] [address] [place] Hyaline Casts,Urine None Normal 0-8 [facility] Comment on above: Order Comment: Name Collection Type:: Clean-Voided Midstream Performed By: #### A DDONUAPLUS, URDS #### [place] [address] [place] Mucus,Urine 4+ Critically abnormal [facility] Comment on above: Order Comment: Name Collection Type:: Clean-Voided Midstream Result Comment: PERF ORMED BY: [place] [address] PATHOLOGIST PLASTICS SPREADING MACHINE OPERATOR ANDRES HAY M.D. Performed By: #### A DDONUAPLUS, URDS #### [place] [address] [place] Nitrite,Urine Negative Normal Negative [facility] Comment on above: Order Comment: Name Collection Type:: Clean-Voided Midstream Performed By: #### A DDONUAPLUS, URDS #### [place] [address] [place] Occult Blood,Urine Negative Normal Negative [facility] Comment on above: Order Comment: Name Collection Type:: Clean-Voided Midstream Result Comment: PERF ORMED BY: [place] [address] PATHOLOGIST PLASTICS SPREADING MACHINE OPERATOR ANDRES HAY M.D. Performed By: #### A DDONUAPLUS, URDS #### [place] [address] [place] Protein,Urine Trace High Negative [facility] Comment on above: Order Comment: Name Collection Type:: Clean-Voided Midstream Performed By: #### A DDONUAPLUS, URDS #### [place] [address] [place] RBC,Urine 1-2 Normal 0-4 [facility] Comment on above: Order Comment: Name Collection Type:: Clean-Voided Midstream Performed By: #### A DDONUAPLUS, URDS #### [address] Specificy Amery,Urine 1.027 Normal 1.001-1.030 [facility] Comment on above: Order Comment: Name Collection Type:: Clean-Voided Midstream Performed By: #### A DDONUAPLUS, URDS #### [place] [address] [place] Urobilinogen,Urine Normal Normal Normal [facility] Comment on above: Order Comment: Name Collection Type:: Clean-Voided Midstream Performed By: #### A DDONUAPLUS, URDS #### [place] [address] [place] WBC,Urine 5-9 High 0-4 [facility] Comment on above: Order Comment: Name Collection Type:: Clean-Voided Midstream Performed By: #### A DDONUAPLUS, URDS #### [place] [id number] [place] Drug Screen,Urineon 05-25-20 Amphetamine Screen,Urine Negative Normal Negative [facility] Comment on above: Performed By: #### A DDONUAPLUS, URDS #### [address] Barbiturate Screen,Urine Negative Normal Negative [facility] Comment on above: Performed By: #### A DDONUAPLUS, URDS #### [place] [address] [place] Benzodiazepines Screen,Urine Negative Normal Negative [facility] Comment on above: Performed By: #### A DDONUAPLUS, URDS #### [address] Cannabinoid Screen,Urine Negative Normal Negative [facility] Comment on above: Result Comment: Thes e are unconfirmed results and should not be used for legal purposes. Drug Cut-Off Concentration: AMPH 1000 ng/mL RICHARD 200 ng/mL MAIA 200 ng/mL COCM 300 ng/mL OP 300 ng/mL PCP 25 ng/mL THC 20 ng/mL PERFORMED BY: [place] [address] PATHOLOGIST PLASTICS SPREADING MACHINE OPERATOR ANDRES HAY M.D. Performed By: #### A DDONUAPLUS, URDS #### [address] Cocaine Screen,Urine Negative Normal Negative [facility] Comment on above: Performed By: #### A DDONUAPLUS, URDS #### [place] [address] [place] Opiate Screen,Urine Negative Normal Negative [facility] Comment on above: Performed By: #### A DDONUAPLUS, URDS #### [address] Phencyclidine Screen,Urine Negative Normal Negative [facility] Comment on above: Performed By: #### A DDONUAPLUS, URDS #### [address] ECG 12 lead ECGon 05-25-2024 ECG 12 lead ECG [facility] [place] [address] [place] [address] Electrocardiograph Report Signed Patient: Hossein Zamarripa MR#: [id number] : 1990 Acct:[id number] Age/Sex: 33 / M ADM Date: 05/25/24 Loc: Room: [address] [place] [address] Type: DIS IN Attending Dr: Dustin Painter MD Ordering Provider: Kellie Rivero DO Date of Service: 05/25/24 ECG/ECG 12 lead ECG: P Copies to: Test Reason : Blood Pressure : 136/65 mmHG Vent. Rate : 97 BPM Atrial Rate : 97 BPM P-R Int : 150 ms QRS Dur : 80 ms QT Int : 332 ms P-R-T Axes : 44 118 8 degrees QTcB Int : 421 ms Normal sinus rhythm Left posterior fascicular block Abnormal ECG No previous ECGs available Confirmed by KELLIE RIVERO DO ([id number]) on 05/26/2024 10:03:30 AM Referred By: Electronically Signed By: KELLIE RIVERO DO REVISED DOCUMENT/05/26/2024/k h (corrected order) Transcribed By: MUS Signed By Kellie Rivero DO 05/30 Normal [facility] Epithelial cells.squamous [# /area] in Urine sediment by Automated countOrdered By: Kellie Rivero on 05-25-2024 Epithelial cells.squamous Auto (Urine sed) [#/Area] N/A [facility] Erythrocyte distribution wid th [Ratio] by Automated countOrdered By: Kellie Rivero on 05-25-2024 Erythrocyte distribution width (RBC) [Ratio] 12.7 % Normal 12.0-14.8 [facility] Comment on above: Performed By: #### G LULS #### Point of Care testing , Erythrocytes [#/area] in Uri ne sediment by Automated countOrdered By: Kellie Rivero on 05-25-2024 RBC Auto (Urine sed) [#/Area] 1-2 [HPF] 0-4 [facility] Erythrocytes [#/volume] in B lood by Automated countOrdered By: Kellie Rivero on 05-25-2024 RBC (Bld) [#/Vol] 5.09 10*6/uL Normal 3.90-5.60 [facility] Comment on above: Performed By: #### G LULS #### Point of Care testing , Ethanol [Mass/volume] in Ser um or PlasmaOrdered By: Kellie Rivero on 05-25-2024 Ethanol [Mass/Vol] mg/dL Normal [facility] Comment on above: Performed By: #### G LULS #### Point of Care testing , Ethanol [Mass/Vol] TNP [facility] Comment on above: Test not performed Ethyl Alcohol Profileon 05-01 Percent Ethanol Not performed Normal [facility] Comment on above: Result Comment: PERF ORMED BY: [place] [address] PATHOLOGIST PLASTICS SPREADING MACHINE OPERATOR ANDRES HAY M.D. Performed By: #### G LULS #### Point of Care testing , Glucose Poct Glucometerson 0 05-25-2024 Glucose [Mass/Vol] 276 mg/dL Normal [facility] Comment on above: Result Comment: [place] om Glucose Reference Range is dependent on time and content of last meal. Glucose of more than 200 mg/dL in a nonstressed, ambulatory subject supports the diagnosis of Diabetes Mellitus. PERFORMED BY: [place] [address] PATHOLOGIST PLASTICS SPREADING MACHINE OPERATOR ANDRES HAY M.D. Performed By: #### G LULS #### Point of Care testing , Commemt1 Glu2: Cleaned Meter Normal [facility] Comment on above: Result Comment: PERF ORMED BY: [facility] [address] [id number] PATHOLOGIST PLASTICS SPREADING MACHINE OPERATOR ANDRES HAY M.D. Performed By: #### G LULS #### Point of Care testing , Glucose [Mass/Vol] 155 mg/dL Normal [facility] Comment on above: Result Comment: [place] om Glucose Reference Range is dependent on time and content of last meal. Glucose of more than 200 mg/dL in a nonstressed, ambulatory subject supports the diagnosis of Diabetes Mellitus. Performed By: #### G LULS #### Point of Care testing , Glucose [Mass/volume] in Ser um or PlasmaOrdered By: Kellie Rivero on 05-25-2024 Glucose [Mass/Vol] 131 mg/dL High 70-100 [facility] Comment on above: ADA recommended refe rence rangeRandom Glucose Reference Range is dependent on time and content of last meal. Glucose of more than 200 mg/dL in a nonstressed, ambulatory subject supports the diagnosis of Diabetes Mellitus. Result Comment: [place] om Glucose Reference Range is dependent on time and content of last meal. Glucose of more than 200 mg/dL in a nonstressed, ambulatory subject supports the diagnosis of Diabetes Mellitus. ADA recommended reference range Performed By: #### G LULS #### Point of Care testing , Glucose [Mass/volume] in Uri ne by Test stripOrdered By: Kellie Rivero on 05-25-2024 Glucose Test strip (U) [Mass/Vol] Normal mg/dL Normal [facility] Glucose mean value [Mass/vol ume] in Blood Estimated from glycated hemoglobinOrdered By: Mai Kelsey on 05-25-2024 Average glucose Estimated from glycated hemoglobin (Bld) [Mass/Vol] 200 mg/dL [facility] Hematocrit [Volume Fraction] of Blood by Automated countOrdered By: Kellie Rivero on 05-25-2024 Hematocrit (Bld) [Volume fraction] 43.9 % Normal 38.8-50.0 [facility] Comment on above: Performed By: #### G LULS #### Point of Care testing , Hemoglobin A1c percentageOrd ered By: Mai Kelsey on 05-25-2024 HbA1c (Bld) [Mass fraction] 8.6 % High 4.3-5.6 [facility] Comment on above: Increased risk for d iabetes: 5.7 - 6.4diabetes: >6.4glycemic control for adults with diabetes: <7.0 Order Comment: Comme nt ok to use previously drawn blood Result Comment: Incr eased risk for diabetes: 5.7 - 6.4 diabetes: >6.4 glycemic control for adults with diabetes: <7.0 Performed By: #### A 1C WTH eA #### [facility] [address] Hemoglobin Test strip Ql (U) Ordered By: Kellie Rivero on 05-25-2024 Hemoglobin Ql (U) Negative Negative [facility] Hemoglobin [Mass/volume] in BloodOrdered By: Kellie Rivero on 05-25-2024 Hemoglobin (Bld) [Mass/Vol] 15.3 g/dL Normal 13.0-17.0 [facility] Comment on above: Performed By: #### G LULS #### Point of Care testing , Hyaline casts [#/area] in Ur ine sediment by Automated countOrdered By: Kellie Rivero on 05-25-2024 Hyaline casts Auto (Urine sed) [#/Area] None [LPF] 0-8 [facility] Ketones [Presence] in Urine by Test stripOrdered By: Kellie Rivero on 05-25-2024 Ketones Ql (U) Trace High Negative [facility] Comment on above: Order Comment: Name Collection Type:: Clean-Voided Midstream Performed By: #### A DDONUAPLUS, URDS #### [facility] [address] [place] [address] [place] Leukocyte esterase [Presence ] in Urine by Test stripOrdered By: Kellie Rivero on 05-25-2024 Leukocyte esterase Test strip Ql (U) Negative Normal Negative [facility] Comment on above: Order Comment: Name Collection Type:: Clean-Voided Midstream Performed By: #### A DDONUAPLUS, URDS #### [facility] [address] [place] [address] [place] Leukocytes [#/area] in Urine sediment by Automated countOrdered By: Kellie Rivero on 05-25-2024 WBC Auto (Urine sed) [#/Area] 5-9 [HPF] High 0-4 [facility] Leukocytes [#/volume] correc spencer for nucleated erythrocytes in Blood by Automated counOrdered By: Kellie Rivero on 05-25-2024 WBC corrected for nucl RBC Auto (Bld) [#/Vol] 7.9 10*3/uL 4.1-10.5 [facility] Leukocytes [#/volume] in Blo od by Automated countOrdered By: Kellie Rivero on 05-25-2024 WBC (Bld) [#/Vol] 7.9 10*3/uL Normal 4.1-10.5 [facility] Comment on above: Performed By: #### G LULS #### Point of Care testing , Lymphocytes [#/volume] in Bl ood by Automated countOrdered By: Kellie Rivero on 05-25-2024 Lymphocytes (Bld) [#/Vol] 1.9 10*3/uL Normal 1.00-4.8 [facility] Comment on above: Performed By: #### G LULS #### Point of Care testing , Lymphocytes/100 leukocytes i n Blood by Automated countOrdered By: Kellie Rivero on 05-25-2024 Lymphocytes/100 WBC (Bld) 24.1 % Normal . [facility] Comment on above: Performed By: #### G LULS #### Point of Care testing , MCH [Entitic mass] by Automa spencer countOrdered By: Kellie Rivero on 05-25-2024 MCH (RBC) [Entitic mass] 30.1 pg Normal 27.5-35.2 [facility] Comment on above: Performed By: #### G LULS #### Point of Care testing , MCHC Auto (RBC) [Mass/Vol]Or dered By: Kellie Rivero on 05-25-2024 MCHC (RBC) [Mass/Vol] 34.9 g/dL 32.5-35.6 [facility] MCV [Entitic volume] by Auto mated countOrdered By: Kellie Rivero on 05-25-2024 MCV (RBC) [Entitic vol] 86.3 fL Normal 83.5-101 [facility] Comment on above: Performed By: #### G LULS #### Point of Care testing , Monocyte distribution width [Entitic volume] in Blood by AutomatedOrdered By: Kellie Rivero on 05-25-2024 Monocyte distribution width Auto (Bld) [Entitic vol] 16.56 % 0.00-20.00 [facility] Mucus [Presence] in Urine by AutomatedOrdered By: Kellie Rivero on 05-25-2024 Mucus Auto Ql (U) 4+ [LPF] Abnormal [facility] Neutrophils [#/volume] in Bl ood by Automated countOrdered By: Kellie Rivero on 05-25-2024 Neutrophils (Bld) [#/Vol] 5.2 10*3/uL Normal 1.8-7.7 [facility] Comment on above: Performed By: #### G LULS #### Point of Care testing , Nitrite Test strip Ql (U)Ord ered By: Kellie Rivero on 05-25-2024 Nitrite Ql (U) Negative Negative [facility] No Panel InformationOrdered By: Kellie Rivero on 05-25-2024 Estimated GFR (CKD-EPI) > 60.0 mL/Min [facility] Creatinine Clearance (Chem 163.62 [facility] Nucleated erythrocytes [Pres ence] in Blood by Automated countOrdered By: Kellie Rivero on 05-25-2024 Nucleated RBC Auto Ql (Bld) 0.1 /100{WBC} 0-0.5 [facility] Opiates [Presence] in Urine by Screen methodOrdered By: Kellie Rivero on 05-25-2024 Opiates Screen Ql (U) Negative Negative [facility] Phencyclidine Screen Ql (U)O rdered By: Kellie Rivero on 05-25-2024 Phencyclidine Ql (U) Negative Negative [facility] Platelet mean volume [Entiti c volume] in Blood by Automated countOrdered By: Kellie Rivero on 05-25-2024 Platelet mean volume (Bld) [Entitic vol] 8.1 fL Normal 6.6-10.1 [facility] Comment on above: Performed By: #### G LULS #### Point of Care testing , Platelets [#/volume] in Bloo d by Automated countOrdered By: Kellie Rivero on 05-25-2024 Platelets (Bld) [#/Vol] 282 10*3/uL Normal 150-450 [facility] Comment on above: Performed By: #### G LULS #### Point of Care testing , Potassium [Moles/volume] in Serum or PlasmaOrdered By: Kellie Rivero on 05-25-2024 Potassium [Moles/Vol] 3.9 mmol/L Normal 3.5-5.1 [facility] Comment on above: Performed By: #### G LULS #### Point of Care testing , Protein Test strip (U) [Mass /Vol]Ordered By: Kellie Rivero on 05-25-2024 Protein (U) [Mass/Vol] Trace mg/dL High Negative [facility] Protein [Mass/volume] in Ser um or PlasmaOrdered By: Kellie Rivero on 05-25-2024 Protein [Mass/Vol] 7.0 g/dL Normal 6.4-8.9 [facility] Comment on above: Performed By: #### G LULS #### Point of Care testing , Serum globulin measurement b y calculation (mass/volume)Ordered By: Kellie Rivero on 05-25-2024 Globulin (S) [Mass/Vol] 2.5 g/dL Normal [facility] Comment on above: Performed By: #### G LULS #### Point of Care testing , Serum or plasma albumin/glob ulin mass ratioOrdered By: Kellie Rivero on 05-25-2024 Albumin/Globulin [Mass ratio] 1.8 {ratio} Normal [facility] Comment on above: Performed By: #### G LULS #### Point of Care testing , Serum or plasma anion gap de terminationOrdered By: Kellie Rivero on 05-25-2024 Anion gap [Moles/Vol] 11.6 mmol/L Normal 6.0-15.0 [facility] Comment on above: Performed By: #### G LULS #### Point of Care testing , Sodium [Moles/volume] in Ser um or PlasmaOrdered By: Kellie Rivero on 05-25-2024 Sodium [Moles/Vol] 138 mmol/L Normal 136-145 [facility] Comment on above: Performed By: #### G LULS #### Point of Care testing , Specific gravity Test strip (U) [Rel density]Ordered By: Kellie Rivero on 05-25-2024 Specific gravity (U) [Rel density] 1.027 1.001-1.030 [facility] Urea nitrogen [Mass/volume] in Serum or PlasmaOrdered By: Kellie Rivero on 05-25-2024 Urea nitrogen [Mass/Vol] 14 mg/dL Normal 7-25 [facility] Comment on above: Performed By: #### G LULS #### Point of Care testing , Urine appearanceOrdered By: Kellie Rivero on 05-25-2024 Appearance (U) Clear Normal Clear [facility] Comment on above: Order Comment: Name Collection Type:: Clean-Voided Midstream Performed By: #### A DDONUAPLUS, URDS #### [facility] [address] Urobilinogen Test strip (U) [Mass/Vol]Ordered By: Kellie Rivero on 05-25-2024 Urobilinogen (U) [Mass/Vol] Normal mg/dL Normal [facility] pH of Urine by Test stripOrd ered By: Kellie Rivero on 05-25-2024 pH (U) 5.5 [pH] Normal 5.0-9.0 [facility] Comment on above: Order Comment: Name Collection Type:: Clean-Voided Midstream Performed By: #### A DDONUAPLUS, URDS #### [facility] [address] Office Visiton 04-09-2024 Follow-up visit [id number] Hossein Zamarripa 1990 M Date Provider Department Center 04/09/[address] [facility] Family History Problem Relation Age of Onset Hypertension Mother Hypertension Father Diabetes Father's Sister Cancer Father's Brother Coronary artery disease Father's Brother Comments: Stents Valvular heart disease Father's Brother Comments: Hx valve replacement Diabetes Father's Brother Hypertension Maternal Grandmother Dementia Maternal Grandmother Hypertension Maternal Grandfather Prostate cancer Maternal Grandfather Diabetes Paternal Grandmother Family Status - Relation Status Age at Mother Father Father's Sister Father's Brother Maternal Grandmother Maternal Grandfather Paternal Grandmother Level of Service:[address] [place] OFFICE/OUTPATIENT ESTABLISHED LOW MDM 20 MIN Normal [facility] ECHOCARDIO M/2D COMPLETEon 0 02-01-2023 ECHOCARDIO M/2D COMPLETE Patient: HOSSEIN ZAMARRIPA Exam Date: 02/01/2023 : 1990 Gender:M Ordering : [facility] Admission #: [id number] Family : DR LOY TAN . Order #: [id number] CLICK HERE TO VIEW EXAM ECHOCARDIOGRAM REPORT PROCEDURE: CARDIO PULMONARY ECHOCARDIO M/2D COMP INDICATIONS: Chest pain, tachycardia, diabetes COMPARISON: None. DESCRIPTION: COMPLETE ECHOCARDIOGRAM Real-time transthoracic echocardiography with 2D, M-mode, spectral and color flow Doppler performed. QUALITY: Technical quality was good. LEFT VENTRICLE: Normal chamber size. Normal left ventricular wall thickness. LV EF: Normal left ventricular ejection fraction, (>55%). DIASTOLIC: Normal diastolic function. ATRIAL SEPTUM: Inadequately seen. LEFT ATRIUM: Normal chamber size. RIGHT ATRIUM: Normal chamber size. RIGHT VENTRICLE: Normal chamber size. Normal right ventricular systolic function. Unable to assess right-sided pressures due to lack of measurable tricuspid regurgitation. TRICUSPID VALVE: Normal mobility and thickness. No stenosis with no regurgitation. MITRAL VALVE: Normal mobility and thickness. No evidence of mitral valve stenosis. There is no mitral annular calcification. Trivial mitral regurgitation. AORTIC VALVE: Normal trileaflet appearance. No visible sclerosis. Normal leaflet mobility. No evidence of aortic valve stenosis. No aortic regurgitation. AORTIC ROOT: Normal diameter and appearance. PULMONIC VALVE: Normal thickness and mobility. No stenosis. No regurgitation. PERICARDIUM: Anterior free space; trivial effusion vs fat pad. IVC: Collapses with inspirations. IVC is normal in size. CONCLUSION: Global left ventricular systolic function is normal; visually estimated ejection fraction is 55 to 60%. No wall motion abnormalities. Normal diastolic function. The right ventricle is normal in size and systolic function. No significant valvular abnormalities. Anterior free space; trivial effusion versus fat pad. Adult Echocardiography Procedure Report Left Ventricle LVEDD (3.7 - 5.6 cm): 5.16 cm LVESD (2.2 - 4.0 cm): 3.33 cm LVIVS thickness (0.6 - 1.2 cm): 1.04 cm LVPW thickness (0.5 - 1.0 cm): 0.92 cm e': 0.10 m/s E - e': 9.58 LVOT Max Gradient: 2.98 mm[Hg] Peak Velocity (LVOT): 0.86 m/s LVOT Diameter 2.68 cm Left Ventricular Ejection Fraction: 64.36 %, 64.36 % Left Atrium LA Volume Index (2D A2C): 56.29 ml, 56.29 ml Left Atrium Systolic Dimension: 4.03 cm Mitral Valve MV E to A Ratio: 1.66 Mitral Valve A-Wave Peak Velocity: 0.60 m/s Mitral Valve E-Wave Peak Velocity: 0.99 m/s Right Ventricle Aorta AO Root Diam: 3.56 cm Aortic Valve AoV Area (Peak Colin): 4.68 cm2, 4.68 cm2 Peak Velocity(Antegrade Flow): 1.04 m/s Peak Gradient(Antegrade Flow): 4.30 mm[Hg] Tricuspid Valve Peak Velocity: 0.49 m/s Pulmonic Valve Mean Gradient: 3.89 mm[Hg], 3.00 mm[Hg] Mean Velocity: 0.92 m/s, 0.81 m/s Peak Velocity: 1.33 m/s, 1.20 m/s Peak Gradient: 7.06 mm[Hg], 5.76 mm[Hg] Right Atrium Right Atrium Systolic Pressure: 28.14 ml, 28.14 ml Dictated by: Gilbert Diaz M.D. on 02/01/2023 at 12:53 Approved by: Gilbert Diaz M.D. on 02/01/2023 at 12:56 Normal [facility] NM STRESS/REST MULTIon 12-18 NM STRESS/REST MULTI Patient: CLARI P, HOSSEIN Jackson G Exam Date: 12/18/2022 : 1990 Gender:M Ordering : DR LOY TAN . Admission #: [id number] Family : Order #: [id number] CLICK HERE TO VIEW EXAM RADIOLOGY REPORT PROCEDURE: RADIONUCLIDE IMAGING STRESS/REST MULTI COMPARISON: None. INDICATIONS: Chest pain TECHNIQUE: Exam Description: Stress/Rest two day protocol gated SPECT Rest Imagin.4 mCi Tc-99m Cardiolite IV on 12/18/2022 Stress Imaging 27.0 mCi Tc-99m Cardiolite IV on 12/20/2022 Exercise Protocol: Ha Heart Rate (bpm): Rest: 105 Max: 166 PMHR: 88 Blood Pressure: Rest: 144/88 Max: 176/94 Exercise Time: Minutes: 6 Seconds: 0 Stage Reached: Stage: 2 Mets 7.0 Symptoms: Rest and peak stress ECG findings were non-diagnostic and the exercise portion of the study was Non-diagnostic per attending physician Dr. Duarte due to questionable ST segment depression in avF AND lead III. For more details please see separate cardiac stress test report. FINDINGS: QUALITY OF STUDY: Excellent. PERFUSION DEFECT: LOCATION: Mid-anteroseptal. Apical anterior. [place]. SIZE: Medium (3-4 segments). SEVERITY: Mild. TYPE: Persistent. WALL MOTION: Normal. LV SIZE: Normal. 89 mL. TID / TCD: None; 0.7 LVEF: Normal. Calculated EF 73%. SUMMARY: Myocardial perfusion imaging study has ABNORMAL findings. CONCLUSION: 1. No acute or reversible ischemia. 2. Mild, fixed perfusion defect involving the anterior septal wall involving the mid and apical aspect of the left ventricle. 3. Normal wall motion and ejection fraction. Dictated by: Erika De Souza M.D. on 12/20/2022 at 15:03 Approved by: Erika De Souza M.D. on 12/20/2022 at 15:07 Normal [facility] LIPID PROFILEon 08-21-2022 CHOL-HDL RATIO NORM SEE BELOW Normal [facility] Comment on above: Result Comment: 3.3 - 4.4 LOW RISK 4.4 - 7.1 AVERAGE RISK 7.1 - 11.0 MODERATE RISK >11.0 HIGH RISK Performed By: #### R ENJAMES, LIPID #### [facility] [address] [address] [address] Valentino Garcia Cholesterol [Mass/Vol] 147 mg/dL Normal <=200 Th [facility] Comment on above: Performed By: #### R ENJAMES, LIPID #### [facility] [address] [place], [place] [address] Dr. Valentino Garcia Cholesterol in HDL [Mass/Vol] 34 mg/dL Critically low 40-60 [facility] Comment on above: Performed By: #### R ENAL, LIPID #### [facility] [address] [place], [place] [address] Dr. Valentino Garcia Cholesterol in LDL [Mass/Vol] 47.2 mg/dL Normal [facility] Comment on above: Performed By: #### R ENAL, LIPID #### [facility] [address] [address] [address] Valentino Garcia Cholesterol.total/Yane sterol in HDL [Mass ratio] 4.3 {ratio} Normal [facility] Comment on above: Performed By: #### R ENAL, LIPID #### [facility] [address] [address] [address] Valentino Garcia HDL NORMAL > or = 60 mg/dl - LO W CARDIOVASCULAR RISK <40 mg/dl - HIGH CARDIOVASCULAR RISK Normal [facility] Comment on above: Performed By: #### R ENAL, LIPID #### [facility] [address] [place] [address] Dr. Valentino Garcia LDL CALC NORMAL SEE BELOW Normal [facility] Comment on above: Result Comment: <100 mg/dl OPTIMAL 100 - 129 mg/dl NEAR OR ABOVE OPTIMAL 130 - 159 mg/dl BORDERLINE HIGH 160 - 189 mg/dl HIGH >190 mg/dl VERY HIGH Performed By: #### R ENAL, LIPID #### [facility] [address] [place] [address] Dr. Valentino Garcia Triglyceride [Mass/Vol] 329 mg/dL Critically high <=150 [facility] Comment on above: Performed By: #### R ENAL, LIPID #### [facility] [address] [place] [address] Dr. Valentino Garcia VLDL CALC 65.8 mg/dL Normal [facility] Comment on above: Performed By: #### R ENAL, LIPID #### [facility] [address] [address] [address] Valentino Garcia MICROALB CREAT RATIO RANDOMo n 08-21-2022 mALB <1.3 Normal <=30.0 [facility] Comment on above: Performed By: #### M CRR #### [facility] [address] [address] [address] Valentino Garcia MALB CR RATIO 12.2 mg/g Normal 0.0-29.9 [facility] Comment on above: Performed By: #### M CRR #### [facility] [address] [place] [address] Dr. Valentino Garcia MALB CR RATIO RANGE SEE BELOW Normal [facility] Comment on above: Result Comment: NO M ICROALBUMINURIA 0-29 MG/G CLINICAL MICROALBUMINURIA 30-300 MG/G MACROALBUMINURIA >300 MG/G Performed By: #### M CRR #### [facility] [address] [address] [address] Valentino Garcia URINE CREAT 106.61 mg/dL Normal 20.00-300.0 0 [facility] Comment on above: Performed By: #### M CRR #### [facility] [address] [address] [address] Valentino Garcia RENAL FUNCTION PANELon 08-21 Albumin [Mass/Vol] 3.7 g/dL Normal 3.4-5.0 [facility] Comment on above: Performed By: #### R ENJAMES, LIPID #### [facility] [address] [place] [address] Dr. Valentino Garcia Calcium [Mass/Vol] 8.9 mg/dL Normal 8.5-10.1 [facility] Comment on above: Performed By: #### R ENJAMES, LIPID #### [facility] [address] [place] [address] Dr. Valentino Garcia Chloride [Moles/Vol] 101 mmol/L Normal 98-107 [facility] Comment on above: Performed By: #### R ENJAMES, LIPID #### [facility] [address] [place] [address] Dr. Valentino Garcia CO2 [Moles/Vol] 26.8 mmol/L Normal 21.0-32.0 [facility] Comment on above: Performed By: #### R ENJAMES, LIPID #### [facility] [address] [place] [address] Dr. Valentino Garcia Creatinine [Mass/Vol] 0.71 mg/dL Normal 0.70-1.30 [facility] Comment on above: Performed By: #### R ENJAMES, LIPID #### [facility] [address] [address] [address] Valentino Garcia EGFR-AF ETHIOPIAN >60 Normal >=60 [facility] Comment on above: Performed By: #### R ENAL, LIPID #### [facility] [address] [address] [address] Valentino Garcia EGFR-NON AF ETHIOPIAN >60 Normal >=60 [facility] Comment on above: Performed By: #### R ENJAMES, LIPID #### [facility] [address] [address] [address] Valentino Garcia Glucose [Mass/Vol] 234 mg/dL Critically high 74-106 [facility] Comment on above: Performed By: #### R ENJAMES, LIPID #### [facility] [address] [place] [address] Dr. Valentino Garcia Phosphate [Mass/Vol] 3.5 mg/dL Normal 2.6-4.7 [facility] Comment on above: Performed By: #### R ENJAMES, LIPID #### [facility] [address] [place] [address] Dr. Valentino Garcia Potassium [Moles/Vol] 4.0 mmol/L Normal 3.5-5.1 [facility] Comment on above: Performed By: #### R ENJAMES, LIPID #### [facility] [address] [place] [address] Dr. Valentino Garcia Sodium [Moles/Vol] 136 mmol/L Normal 136-145 [facility] Comment on above: Performed By: #### R ENJAMES, LIPID #### [facility] [address] [place] [address] Dr. Valentino Garcia Urea nitrogen [Mass/Vol] 15.0 mg/dL Normal 7.0-18.0 [facility] Comment on above: Performed By: #### R ENAL, LIPID #### [facility] [address] [place] [address] Dr. Valentino Garcia VITAMIN D 25 OHon 08-21-2022 VIT D 25-OH 16.9 ng/mL Normal [facility] Comment on above: Performed By: #### V ITAD #### [facility] [address] [address] [address] Valentino Garcia VIT D RANGES SEE BELOW [facility] Comment on above: Result Comment: <20 ng/mL Vit D deficient 20 - <30 ng/mL Vit D insufficient 30 - 100 ng/mL Vit D sufficient >100 ng/mL Potential Toxicity Performed By: #### V ITAD #### [facility] [address] [address] [address] Valentino Garcia Ambulatory Clinical Summaryo n 04-12-2020 Ambulatory Clinical Summary {[id number]}CD:[id number] Normal [facility] Vital Signs Date Time Vital Sign Value Performing Clinician Facility 06-10-2025 09:57-0400 Body height 170.2 cm Marietta Calderon MD Work Phone: [facility] 06-10-2025 09:57-0400 Body mass index (BMI) [Ratio] 47.46 kg/m2 Marietta Calderon MD Work Phone: [facility] 06-10-2025 09:57-0400 Body weight 137.44 kg Marietta Calderon MD Work Phone: [facility] 06-10-2025 09:57-0400 Heart rate 84 /min Marietta Calderon MD Work Phone: [facility] 06-10-2025 09:57-0400 Respiratory rate 18 /min Marietta Calderon MD Work Phone: [facility] 06-10-2025 09:57-0400 SaO2% (BldA) [Mass fraction] 97 % Marietta Calderon MD Work Phone: [facility] 05-07-2025 09:38-0400 Body height 170.2 cm Marietta Calderon MD Work Phone: [facility] 05-07-2025 09:38-0400 Body mass index (BMI) [Ratio] 43.85 kg/m2 Marietta Calderon MD Work Phone: [facility] 05-07-2025 09:38-0400 Body weight 127.01 kg Marietta Calderon MD Work Phone: [facility] 05-07-2025 09:38-0400 Diastolic blood pressure 76 mm[Hg] Marietta Calderon MD Work Phone: [facility] 05-07-2025 09:38-0400 Heart rate 65 /min Marietta Calderon MD Work Phone: [facility] 05-07-2025 09:38-0400 Respiratory rate 16 /min Marietta Calderon MD Work Phone: [facility] 05-07-2025 09:38-0400 SaO2% (BldA) [Mass fraction] 98 % Marietta Calderon MD Work Phone: [facility] 05-07-2025 09:38-0400 Systolic blood pressure 114 mm[Hg] Marietta Calderon MD Work Phone: [facility] 04-23-2025 11:27-0400 Body height 170.2 cm Loy Tan MD Work Phone: [facility] 04-23-2025 11:27-0400 Body mass index (BMI) [Ratio] 44.17 kg/m2 Loy Tan MD Work Phone: [facility] 04-23-2025 11:27-0400 Body temperature 96.4 [degF] Loy Tan MD Work Phone: [facility] 04-23-2025 11:27-0400 Body weight 127.91 kg Loy Tan MD Work Phone: [facility] 04-23-2025 11:27-0400 Diastolic blood pressure 68 mm[Hg] Loy Tan MD Work Phone: [facility] 04-23-2025 11:27-0400 Heart rate 122 /min Loy Tan MD Work Phone: [facility] 04-23-2025 11:27-0400 Respiratory rate 20 /min Loy Tan MD Work Phone: [facility] 04-23-2025 11:27-0400 SaO2% (BldA) [Mass fraction] 97 % Loy Tan MD Work Phone: [facility] 04-23-2025 11:27-0400 Systolic blood pressure 142 mm[Hg] Loy Tan MD Work Phone: [facility] 03-30-2025 09:45-0400 Body height 175.26 cm Loy Tan MD Work Phone: [facility] 03-30-2025 09:45-0400 Body mass index (BMI) [Ratio] 41.6 kg/m2 Loy Tan MD Work Phone: [facility] 03-30-2025 09:45-0400 Body weight 127.91 kg Loy Tan MD Work Phone: [facility] 03-30-2025 09:45-0400 Diastolic blood pressure 86 mm[Hg] Loy Tan MD Work Phone: [facility] 03-30-2025 09:45-0400 Heart rate 80 /min Loy Tan MD Work Phone: [facility] 03-30-2025 09:45-0400 SaO2% (BldA) [Mass fraction] 99 % Loy Tan MD Work Phone: [facility] 03-30-2025 09:45-0400 Systolic blood pressure 126 mm[Hg] Loy Tan MD Work Phone: [facility] 01-01-2025 10:03-0400 Body height 170.2 cm Marietta Calderon MD Work Phone: [facility] 01-01-2025 10:03-0400 Body mass index (BMI) [Ratio] 47.61 kg/m2 Marietta Calderon MD Work Phone: [facility] 01-01-2025 10:03-0400 Body weight 137.89 kg Marietta Calderon MD Work Phone: [facility] 01-01-2025 10:03-0400 Diastolic blood pressure 70 mm[Hg] Marietta Calderon MD Work Phone: [facility] 01-01-2025 10:03-0400 Heart rate 83 /min Marietta Calderon MD Work Phone: [facility] 01-01-2025 10:03-0400 Respiratory rate 18 /min Marietta Calderon MD Work Phone: [facility] 01-01-2025 10:03-0400 SaO2% (BldA) [Mass fraction] 99 % Marietta Calderon MD Work Phone: [facility] 01-01-2025 10:03-0400 Systolic blood pressure 110 mm[Hg] Marietta Calderon MD Work Phone: [facility] 09-14-2024 08:32-0500 Body height 170.2 cm Loy Tan MD Work Phone: [facility] 09-14-2024 08:32-0500 Body mass index (BMI) [Ratio] 43.7 kg/m2 Loy Tan MD Work Phone: [facility] 09-14-2024 08:32-0500 Body temperature 97.81 [degF] Loy Tan MD Work Phone: [facility] 09-14-2024 08:32-0500 Body weight 126.55 kg Loy Tan MD Work Phone: [facility] 09-14-2024 08:32-0500 Diastolic blood pressure 74 mm[Hg] Loy Tan MD Work Phone: [facility] 09-14-2024 08:32-0500 Heart rate 89 /min Loy Tan MD Work Phone: [facility] 09-14-2024 08:32-0500 Respiratory rate 18 /min Loy Tan MD Work Phone: [facility] 09-14-2024 08:32-0500 SaO2% (BldA) [Mass fraction] 96 % Loy Tan MD Work Phone: [facility] 09-14-2024 08:32-0500 Systolic blood pressure 126 mm[Hg] Loy Tan MD Work Phone: [facility] 09-09-2024 10:41-0500 Body height 170.2 cm Marietta Calderon MD Work Phone: [facility] 09-09-2024 10:41-0500 Body mass index (BMI) [Ratio] 44.95 kg/m2 Marietta Calderon MD Work Phone: [facility] 09-09-2024 10:41-0500 Body weight 130.18 kg Marietta Calderon MD Work Phone: [facility] 09-09-2024 10:41-0500 Diastolic blood pressure 72 mm[Hg] Marietta Calderon MD Work Phone: [facility] 09-09-2024 10:41-0500 Heart rate 81 /min Marietta Calderon MD Work Phone: [facility] 09-09-2024 10:41-0500 Respiratory rate 18 /min Marietta Calderon MD Work Phone: [facility] 09-09-2024 10:41-0500 Systolic blood pressure 110 mm[Hg] Marietta Calderon MD Work Phone: [facility] 06-11-2024 09:20-0400 Body height 170.2 cm Loy Tan MD Work Phone: [facility] 06-11-2024 09:20-0400 Body mass index (BMI) [Ratio] 45.58 kg/m2 Loy Tan MD Work Phone: [facility] 06-11-2024 09:20-0400 Body temperature 97.81 [degF] Loy Tan MD Work Phone: [facility] 06-11-2024 09:20-0400 Body weight 132 kg Loy Tan MD Work Phone: [facility] 06-11-2024 09:20-0400 Diastolic blood pressure 68 mm[Hg] Loy Tan MD Work Phone: [facility] 06-11-2024 09:20-0400 Heart rate 39 /min Loy Tan MD Work Phone: [facility] 06-11-2024 09:20-0400 Respiratory rate 20 /min Loy Tan MD Work Phone: [facility] 06-11-2024 09:20-0400 SaO2% (BldA) [Mass fraction] 98 % Loy Tan MD Work Phone: [facility] 06-11-2024 09:20-0400 Systolic blood pressure 116 mm[Hg] Loy Tan MD Work Phone: [facility] 05-28-2024 13:15-0400 Body temperature 97.7 [degF] MD Loy Tan Work Phone: [facility] 05-28-2024 13:15-0400 Respiratory rate 16 /min MD Loy Tan Work Phone: [facility] 05-28-2024 13:15-0400 SaO2% (BldA) [Mass fraction] 97 % MD oLy Tan Work Phone: [facility] 05-28-2024 07:30-0400 Diastolic blood pressure 82 mm[Hg] MD Loy Tan Work Phone: [facility] 05-28-2024 07:30-0400 Heart rate 76 /min MD Loy Tan Work Phone: [facility] 05-28-2024 07:30-0400 Systolic blood pressure 132 mm[Hg] MD Loy Tan Work Phone: [facility] 05-26-2024 15:06-0400 Body height 170.18 cm MD Loy Tan Work Phone: [facility] 05-25-2024 17:54-0400 Body weight 127.91 kg MD Loy Tan Work Phone: [facility] 05-25-2024 16:12-0400 Diastolic blood pressure 65 mm[Hg] MD Loy Tan Work Phone: [facility] 05-25-2024 16:12-0400 Heart rate 89 /min MD Loy Tan Work Phone: [facility] 05-25-2024 16:12-0400 Respiratory rate 18 /min MD Loy Tan Work Phone: [facility] 05-25-2024 16:12-0400 SaO2% (BldA) [Mass fraction] 97 % MD Loy Tan Work Phone: [facility] 05-25-2024 16:12-0400 Systolic blood pressure 136 mm[Hg] MD Loy Tan Work Phone: [facility] 05-25-2024 12:14-0400 Body height 170.18 cm MD Loy Tan Work Phone: [facility] 05-25-2024 12:14-0400 Body temperature 98.6 [degF] MD Loy Tan Work Phone: [facility] 05-25-2024 12:14-0400 Body weight 129.3 kg MD Loy Tan Work Phone: [facility] Encounters Encounter Date Encounter Type Care Provider Facility Start: 06-10-2025 End: 06-10-2025 AlexanderTicket ABCo flowsheet Marietta Calderon MD [facility] Start: 06-10-2025 End: 06-10-2025 Katie flowsheet Marietta Calderon MD Work Phone: [facility] Start: 06-10-2025 End: 06-10-2025 Office outpatient visit 25 minutes Marietta Calderon MD [facility] Comment on above: Type 1 diabetes ruel itus with hyperglycemia (HCC) (Primary Dx); Encounter for dietary consultation; Vitamin D deficiency; Encounter for fitting or adjustment of insulin pump; Insulin pump in place; Insulin long-term use (HCC); High risk medication use; Class 3 severe obesity due to excess calories with serious comorbidity and body mass index (BMI) of 45.0 to 49.9 in adult ([facility]-H[facility]); Hypoglycemia Start: 06-10-2025 End: 06-10-2025 ambulatory MARIETTA CALDERON Not Available Start: 05-28-2025 End: 05-28-2025 Telephone encounter Marietta Calderon MD [facility] Comment on above: Med Refill; Prior Au thorization Start: 05-17-2025 End: 05-21-2025 Telephone encounter Marietta Calderon MD [facility] Comment on above: Med Refill Start: 05-07-2025 End: 05-07-2025 Bamboo flowsheet Marietta Calderon MD Work Phone: [facility] Start: 05-07-2025 End: 05-07-2025 Bamboo flowsheet Marietta Calderon MD [facility] Start: 05-07-2025 End: 05-07-2025 Office outpatient visit 25 minutes Marietta Calderon MD [facility] Comment on above: Type 1 diabetes ruel itus with hyperglycemia (HCC) (Primary Dx); Encounter for dietary consultation; Vitamin D deficiency; Encounter for fitting or adjustment of insulin pump; Insulin pump in place; Insulin long-term use (HCC); High risk medication use Start: 05-07-2025 End: 05-07-2025 ambulatory MARIETTA CALDERON Not Available Start: 04-23-2025 End: 04-23-2025 Bamboo flowsheet Loy Tan MD Work Phone: [facility] Start: 04-23-2025 End: 04-23-2025 Bamboo flowsheet Loy Tan MD Work Phone: [facility] Start: 04-23-2025 End: 04-23-2025 Office outpatient visit 25 minutes Loy Tan MD Work Phone: [facility] Comment on above: Benign essential hyp ertension (Primary Dx); MDD (major depressive disorder), recurrent episode, moderate (HCC); Type 2 diabetes mellitus with polyneuropathy (HCC); Bilateral leg edema; Type 2 diabetes mellitus with hyperglycemia, with long-term current use of insulin ([facility]); Class 3 severe obesity due to excess calories with serious comorbidity and body mass index (BMI) of 40.0 to 44.9 in adult ([facility]-HCC) Start: 04-23-2025 End: 04-23-2025 ambulatory LOY TAN Not Available Start: 04-22-2025 End: 04-27-2025 Telephone encounter Marietta Caldreon MD Work Phone: [facility] Comment on above: Advice Only Start: 03-30-2025 End: 03-30-2025 ambulatory Loy Tan MD Work Phone: [facility] Work Phone: Start: 03-30-2025 End: 03-30-2025 Patient encounter procedure Anayeli Cabrera DO -[facility] [place] Work Phone: Start: 01-21-2025 End: 01-21-2025 Refill Loy Tan MD Work Phone: [facility] Comment on above: Chronic neck pain; Premature ejaculation Start: 01-10-2025 End: 01-11-2025 Refill Marietta Calderon MD Work Phone: [facility] Comment on above: Type 1 diabetes ruel itus with hyperglycemia ([facility]) ([facility]/HCC) (Primary Dx) Start: 01-08-2025 End: 01-08-2025 ambulatory [facility] Start: 01-01-2025 End: 01-01-2025 Alexanderboalton Calderon MD Work Phone: [facility] Start: 01-01-2025 End: 01-01-2025 Bamboo karen Calderon MD Work Phone: [facility] Start: 01-01-2025 End: 01-01-2025 Office outpatient visit 25 minutes Marietta Calderon MD Work Phone: [facility] Comment on above: Type 1 diabetes ruel itus with hyperglycemia (HCC) (CMS/HCC) (Primary Dx); Encounter for dietary consultation; Vitamin D deficiency; Encounter for fitting or adjustment of insulin pump; Insulin pump in place; Insulin long-term use (CMS/HCC); High risk medication use; Class 3 severe obesity due to excess calories with serious comorbidity and body mass index (BMI) of 45.0 to 49.9 in adult Start: 01-01-2025 End: 01-01-2025 ambulatory MARIETTA CALDERON Not Available Start: 12-16-2024 End: 12-16-2024 ambulatory LOY TAN Not Available Start: 11-26-2024 End: 11-26-2024 ambulatory [facility] Start: 11-26-2024 End: 11-26-2024 ambulatory [facility] Start: 11-09-2024 End: 11-09-2024 Juan Tan MD Work Phone: [facility] Comment on above: Type 2 diabetes ruel itus with polyneuropathy (CMS/HCC) Start: 10-28-2024 End: 10-28-2024 ambulatory [facility] Start: 09-14-2024 End: 09-14-2024 Bamboalton Tan MD Work Phone: [facility] Start: 09-14-2024 End: 09-14-2024 Bamboo flowsheet Loy Tan MD Work Phone: [facility] Start: 09-14-2024 End: 09-14-2024 Office outpatient visit 25 minutes Loy Tan MD Work Phone: [facility] Comment on above: Benign essential hyp ertension (CMS/HCC) (Primary Dx); MDD (major depressive disorder), recurrent episode, moderate (CMS/HCC); 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); Bilateral leg edema; Primary insomnia; Type 2 diabetes mellitus with hyperglycemia, with long-term current use of insulin (CMS/HCC) Start: 09-14-2024 End: 09-14-2024 ambulatory LOY TAN Not Available Start: 09-09-2024 End: 09-09-2024 BamTicket ABCo CBLPathheet Marietta Calderon MD Work Phone: [facility] Start: 09-09-2024 End: 09-09-2024 Bamboo CBLPathheet Marietta Calderon MD Work Phone: [facility] Start: 09-09-2024 End: 09-09-2024 Office outpatient new 60 minutes Marietta Calderon MD Work Phone: [facility] Comment on above: Type 1 diabetes ruel itus with hyperglycemia (HCC) (CMS/HCC) (Primary Dx); Encounter for dietary consultation; Vitamin D deficiency; Encounter for fitting or adjustment of insulin pump; Insulin pump in place; Insulin long-term use (CMS/HCC); High risk medication use; Class 3 severe obesity due to excess calories with serious comorbidity and body mass index (BMI) of 40.0 to 44.9 in adult (CMS/HCC) Start: 09-09-2024 End: 09-09-2024 ambulatory MARIETTA CALDERON Not Available Start: 07-28-2024 End: 07-28-2024 Refill Loy Tan MD Work Phone: [facility] Comment on above: Type 2 diabetes ruel itus with polyneuropathy (CMS/HCC) Start: 07-13-2024 ambulatory Loy Tan Facility:[facility] Start: 06-11-2024 End: 06-11-2024 [facility] flowsheet Loy Tan MD Work Phone: [facility] Start: 06-11-2024 End: 06-11-2024 [facility] flowsheet Loy Tan MD Work Phone: [facility] Start: 06-11-2024 End: 06-11-2024 Transitional care manage srvc 14 day discharge Loy Tan MD Work Phone: [facility] Comment on above: MDD (major depressiv e disorder), recurrent episode, moderate (HCC) (CMS/HCC) (Primary Dx); Primary insomnia; Erectile dysfunction associated with type 2 diabetes mellitus (CMS/HCC); Type 2 diabetes mellitus with hyperglycemia, with long-term current use of insulin (CMS/HCC) Start: 06-02-2024 End: 06-02-2024 Refill Loy Tan MD Work Phone: [facility] Comment on above: Premature ejaculatio n; Hypertriglyceridemia (CMS/HCC) Start: 05-26-2024 Non-patient / Non-visit MD Kajal Tan Work Phone: [facility] Work Phone: Start: 05-25-2024 End: 05-28-2024 Evaluation and management of inpatient MD Loy Tan Work Phone: [facility] [place] [address] Work Phone: Start: 04-09-2024 End: 04-09-2024 [facility] Start: 12-23-2023 Patient encounter procedure Loy Tan MD Work Phone: [facility] Start: 02-01-2023 End: 02-02-[address] LOY TAN Facility:[facility] Start: 12-20-2022 End: 12-21-[address] LOY TAN Facility:[facility] Start: 12-18-2022 End: 12-19-[address] LOY TAN Facility:[facility] Start: 11-26-2022 End: 11-27-[address] LOY TAN Facility:[facility] Start: 08-21-2022 End: 08-22-2022 ambulatory MARIETTA CALDERON Facility:[facility] Procedures Date Procedure Procedure Detail Performing Clinician Start: 06-10-2025 Gluc bld gluc mntr d ev cleared fda spec home use Marietta Calderon MD Work Phone: Start: 05-07-2025 Gluc bld gluc mntr d ev cleared fda spec home use Marietta Calderon MD Work Phone: Start: 01-01-2025 Gluc bld gluc mntr d ev cleared fda spec home use Marietta Calderon MD Work Phone: Start: 09-09-2024 Gluc bld gluc mntr d ev cleared fda spec home use Marietta Calderon MD Work Phone: Plan of Treatment Date Care Activity Detail Author Start: 11-18-2025 Urine screening for protein Diabetes: Urine Protein Screening [facility] Start: 11-07-2025 Hemoglobin A1c measurement Diabetes: Hemoglobin A1C [facility] Start: 10-25-2025 End: 10-25-2025 Patient encounter procedure 10/25/2025 9:30 AM EST Office Visit [facility] [address] [place] [address] Loy Tan MD [address] [place] [address] [facility] Start: 08-09-2025 End: 08-09-2025 Patient encounter procedure 08/09/2025 9:20 AM EST [facility] [address] [place] [address] Marietta Calderon MD [address] [place] [address] [facility] Start: 07-03-2025 Hemoglobin A1c measurement Diabetes: Hemoglobin A1C [facility] Start: 06-10-2025 End: 06-10-2025 Patient encounter procedure 06/10/2025 10:00 AM EDT Office Visit [facility] [address] [place] [address] Marietta Calderon MD [address] [place] [address] Type 1 diabetes mellitus with hyperglycemia (HCC) [facility] Comment on above: Type 1 diabetes ruel itus with hyperglycemia (HCC) Start: 05-31-2025 Influenza vaccination [facility] Start: 05-07-2025 End: 05-07-2025 Patient encounter procedure [facility] Comment on above: Type 1 diabetes ruel itus with hyperglycemia (HCC) Start: 04-23-2025 End: 04-23-2025 Patient encounter procedure 04/23/2025 11:30 AM EDT Office Visit [facility] [address] [place] [phone] Loy Tan MD [address] [place] [phone] [facility] Comment on above: Arrived Start: 03-30-2025 End: 03-30-2025 Patient encounter procedure [facility] Start: 03-18-2025 End: 03-18-2025 Patient encounter procedure 03/18/2025 9:45 AM EDT Office Visit [facility] [address] [place] [phone] Loy Tan MD [address] [place] [phone] [facility] Start: 03-10-2025 Hemoglobin A1c measurement Diabetes: Hemoglobin A1C [facility] Start: 01-01-2025 End: 01-01-2025 Patient encounter procedure 01/01/2025 9:50 AM EDT Office Visit [facility] [address] [place] [address] Marietta Calderon MD [address] [place] [address] Type 1 diabetes mellitus with hyperglycemia (HCC) ([facility]) [facility] Comment on above: Type 1 diabetes ruel itus with hyperglycemia (HCC) ([facility]) Start: 12-24-2024 Urine screening for protein Diabetes: Urine Protein Screening [facility] Start: 12-16-2024 End: 12-16-2024 Patient encounter procedure 12/16/2024 9:00 AM EDT Office Visit [facility] [address] [place] [address] Loy Tan MD [address] [place] [address] [facility] Start: 12-15-2024 End: 12-15-2024 Patient encounter procedure 12/15/2024 10:40 AM EDT Office Visit [facility] [address] [place] [address] Marietta Calderon MD [address] [place] [address] [facility] Start: 11-05-2024 Glaucoma screening Diabetes: R etinopathy Screening [facility] Start: 09-14-2024 End: 09-14-2024 [facility] on above: Arrived Start: 09-10-2024 Hemoglobin A1c measurement Diabetes: Hemoglobin A1C [facility] Start: 09-09-2024 End: 09-09-2025 25-hydroxyvitamin D3 [Mass/volume] in Serum or Plasma Vitamin D 25 hydroxy Total Lab Routine Type 1 diabetes mellitus with hyperglycemia (HCC) ([facility]) Expected: 09/09/2024 (Approximate), Expires: 09/09/2025 [facility] Comment on above: Expected: 09/09/2024 (Approximate), Expires: 09/09/2025 Start: 09-09-2024 End: 09-09-2025 C-peptide C-peptide Lab Routine Type 1 diabetes mellitus with hyperglycemia (HCC) ([facility]) Expected: 09/09/2024 (Approximate), Expires: 09/09/2025 [facility] [facility] Work Phone: Comment on above: Expected: 09/09/2024 (Approximate), Expires: 09/09/2025 Start: 09-09-2024 End: 09-09-2025 Lipid 1996 panel - Serum or Plasma Lipid panel Lab Routine Type 1 diabetes mellitus with hyperglycemia (HCC) ([facility]) Expected: 09/09/2024 (Approximate), Expires: 09/09/2025 [facility] Comment on above: Expected: 09/09/2024 (Approximate), Expires: 09/09/2025 Start: 09-09-2024 End: 09-09-2025 Microalbumin/Creatinine panel in random Urine Microalbumin / creatinine urine ratio Lab Routine Type 1 diabetes mellitus with hyperglycemia (HCC) ([facility]) Expected: 09/09/2024 (Approximate), Expires: 09/09/2025 [facility] Comment on above: Expected: 09/09/2024 (Approximate), Expires: 09/09/2025 Start: 09-09-2024 End: 09-09-2025 Renal function panel Renal function panel Lab Routine Type 1 diabetes mellitus with hyperglycemia (HCC) ([facility]) Expected: 09/09/2024 (Approximate), Expires: 09/09/2025 [facility] Comment on above: Expected: 09/09/2024 (Approximate), Expires: 09/09/2025 Start: 09-09-2024 End: 09-09-2024 Patient encounter procedure [facility] Comment on above: Type 1 diabetes ruel itus with hyperglycemia (HCC) ([facility]) Start: 06-11-2024 End: 06-11-2024 Patient encounter procedure 06/11/2024 9:15 AM EDT Office Visit [facility] [address] [place] [address] Loy Tan MD [address] [place] [address] Arrived [facility] Comment on above: Arrived Start: 06-08-2024 End: 06-08-2024 Patient encounter procedure 06/08/2024 3:00 PM EDT Office Visit [facility] [address] [place] [address] Loy Tan MD [address] [place] [address] [facility] Start: 05-31-2024 Influenza vaccination Influenza Vacc ine (#1) [facility] Start: 05-28-2024 [facility] Start: 05-26-2024 [facility] Start: 05-25-2024 Hospital admission [facility] Start: 05-25-2024 [facility] Start: 05-25-2024 Referral to clinical senior account clerk [facility] Start: 2009 Urine screening for protein Diabetes: Urine Protein Screening [facility] Patient Education Depression, Ad ult (DC) [facility] DC Instructions Know your Meds [facility] Work Phone: Patient referral [facility] Work Phone: Immunizations Immunization Date Immunization Notes Care Provider Fa cili 08-20-2021 influenza virus vacc ine, unspecified formulation Loy Tan MD Work Phone: [facility] Payers Date Payer Category Payer Medicaid [id number] 2024 Self-pay 2022 Private Health Insurance [id number] 1990 Unknown [id number] [id number]. 593 1990 Unknown [id number] [id number]. 593 1990 Unknown [id number] [id number]. 593 1990 Unknown [id number] 2.16.840.1.700286.3.579.2. 593 1990 Unknown [id number] 2.16.840.1.107215.3.579.2. 593 1990 Unknown [id number] 2.16.840.1.177021.3.579.2. 1259 1990 Unknown [id number] 2.16.840.1.593914.3.579.2. 1259 1990 Unknown [id number] 2.16.840.1.658550.3.579.2. 1259 1990 Unknown [id number] 2.16.840.1.472294.3.579.2. 1259 1990 Unknown [id number] 2.16.840.1.245145.3.579.2. 1259 1990 Unknown [id number] 2.16.840.1.963436.3.579.2. 1259 1990 Unknown [id number] 2.16.840.1.547663.3.579.2. 1259 1959 Private Health Insurance [id number] Private Health Insurance [facility] [id number] Unknown [facility] [id number] Unknown [id number] [id number]. 531 Unknown [id number] [id number]. 531 Social History Date Type Detail Facility Start: 12-23-2023 End: 05-25-2024 Tobacco smoking status NHIS Never smoked tobacco (finding) [facility] Start: 1990 Sex Assigned At Male [facility] Start: 12-23-2023 Tobacco use and exposure Smokeless tobacco non-user [facility] Start: 06-11-2024 End: 04-23-2025 Alcoholic beverage intake Lifetime non-drinker (finding) [facility] Start: 01-21-2024 End: 03-18-2024 History of Social function [facility] Start: 01-21-2024 End: 03-18-2024 [id number] Health Literacy [facility] How often do you nee d to have someone help you when you read instructions, pamphlets, or other written material from your doctor or pharmacy [SILS] Never [facility] Do you belong to any clubs or organizations such as uatsdin groups, unions, fraBaila Games or athletic groups, or school groups? No [facility] Are you now , , , , never or living with a partner? [facility] How often to you hav e a drink containing alcohol? Monthly or less [facility] How many standard dr inks containing alcohol do you have on a typical day? 1 or 2 [facility] How often do you hav e 6 or more drinks on 1 occasion? Never [facility] Do you feel stress - tense, restless, nervous, or anxious, or unable to sleep at night because your mind is troubled all the time - these days [OSQ] Not at all [facility] (I/We) worried shavon er (my/our) food would run out before (I/we) got money to buy more. Never true [facility] Start: 01-01-2024 Gender identity Identifies as male gender (finding) [facility] Start: 01-01-2024 Sexual orientation Homosexual (finding) [facility] Sex Male (finding) [facility] Goals Date Patient Goal Desired Activity /State Functional Status Date Assessment Result Facility 05-28-2024 Functional status Patient at Baseline [facility] Work Phone: Mental Status Date Assessment Result Facility 05-28-2024 Cognitive function Cognitive Sta tus Patient at Baseline [facility] Work Phone: Clinical Notes 04-09-2024 to 06-10-2025 Marietta Calderon MD - 06/10/2025 10:00 AM EDTTelephone Encounter - Adair Henry - 05/28/2025 8:12 AM EDTTelephone Encounter - Adair Henry - 05/28/2025 8:12 AM EDT Note Date & Type Note Facility 06-10-2025 History of en t illness Narrative Images from the original note were not included. Hossein Zamarripa is a 34 y.o. male No ref. provider found presents with chief complaint of Diabetes and Follow-up (NEW PUMP CHECK) HPI: Interim History: 05/2025 Follow-up urgent visit 06/10/2025 for type 1 diabetes and hypoglycemia, u-500 , basal 12 am 0.35, 8 am 1.2, 3 pm 1.3, 7:30 pm 1.05, ICR 7, ISS 20. He is on new Omnipod with Dexcom 7 now, low blood sugar middle of the night. Basal 52, bolus 48, total daily dose 52 units of U500, CGM 4-49. Interim History: 04/2025 Follow-up visit 05/07/2025 for type 1 diabetes, a1C 12.6, BG 254, units u-500 , basal 12 am 0.35, 8 am 1.2, 3 pm 1.3, 7:30 pm 1.05, ICR 7, ISS 20. His number are bad because his CGM does not communicate to the pump, and he wants to switch to Omnipod with Dexcom 7. Interim History: 12/2024 Follow-up visit 01/01/2025 for type 1 diabetes, a1C 9, BG 160, units u-500 , basal 12 am 0.35, 8 am 1.2, 3 pm 1.3, 7:30 pm 1.05, ICR 7, ISS 20. Off ozepmic due to cost. CGM avg 240. Interim History: 08/2024 Follow-up visit 09/09/2024 for type 1 diabetes, a1C 7.6 with PCP office, BG 110, units u-500 , basal 12 am 0.35, 8 am 1.2, 3 pm 1.3, 7:30 pm 1.05, ICR 7, ISS 20. Interim History: 05/2024 Follow-up visit 06/03/2024 for type 1 diabetes, a1C 8 with PCP office, BG 125 , units u-500 , basal 12 am 0.35, 8 am 1.2, 3 pm 1.3, 7:30 pm 1.05, ICR 7, ISS 20. AVG 205, CGM 0-67-23 %, 55/45%. Interim History: 02/2024 Follow-up visit 03/11/2024 for type 1 diabetes, a1C 8.5 with PCP office, BG 137 , units u-500 , basal 12 am 0.35, 8 am 1.2, 3 pm 1.3, 7:30 pm 1.05, ICR 7, ISS 20. AVG 205, CGM 0-70-30 %, 47/53%. Interim History: 11/2023 Follow-up visit 12/04/2023 for type 1 diabetes, a1C 8.3 with PCP office, BG 121 , units u-500 , basal 12 am 0.35, 8 am 1.2, 3 pm 1.3, 7:30 pm 1.05, ICR 7, ISS 20. AVG 197, CGM 1-49-50 %, 41-59 %. Interim History: 05/2023 Follow-up visit 06/12/2023 for type 1 diabetes, a1C 8.7 with PCP office, BG 148 , units u-500 , basal 12 am 0.35, 8 am 1.2, 3 pm 1.3, 7:30 pm 1.05, ICR 6, ISS 20. AVG 194, CGM 0-50-50%, TDD 59, 65/35%. Interim History: 02/2023 Follow-up visit 03/06/2023 for type 1 diabetes, a1C 8.9 with PCP office, BG 198 , units u-500 , basal 12 am 0.35, 8 am 1.2, 3 pm 1.3, 7:30 pm 1.05, ICR 7, ISS 25-35. AVG 209, 43/57%, TDD 47 Interim History: 11/2022 Follow-up visit 12/05/2022 for type 1 diabetes, a1C 8.7 with PCP office , BG 1123 , units u-500 , basal 12 am 0.35, 8 am 1.2, 3 pm 1.3, 7:30 pm 1.05, ICR 8, ISS 25-35. Interim History: 07/2022 Follow-up visit 08/28/2022 for type 1 diabetes, a1C 8.1 with PCP office , BG 172 , units u-500 , basal 12 am 0.35, 8 am 1.2, 3 pm 1.3, 7:30 pm 1.05, ICR 8, ISS 25-35. got a new pump Interim History: 05/2022 Follow-up visit 06/19/2022 for type 1 diabetes, a1C 8.7 , BG 159 , and average 44 units u-500 , basal 12 am 0.35, 8 am 1.2, 3 pm 1.3, 7:30 pm 1.05, ICR 8, ISS 25-35. off pump for 4 days and using by syringes 50-75 actual units till get a new pump Interim History: 12/2021 Follow-up visit 01/18/2022 for type 1 diabetes, a1C 7.4 , BG 143 , and average 41 units u-500 , . basal 12 am 0.35, 8 am 1.2,, 3 pm 1.3, 7:30 pm 1.05, ICR 8, ISS 25-35. Interim History: 09/2021 Follow-up visit 10/13/2021 for type 1 diabetes, a1C 8.6, BG 221 , and average 43 units u-500 , . basal 12 am 0.3, 8 am 0.9, 3 pm 1.15, 7:30 pm 0.9, ICR 8, ISS 25-35. eye showed retinopathy Interim History: 06/2021 Follow-up visit for type 1 diabetes, a1C 7.6, BG 161 , and average 37 units u-500 , . basal 12 am 0.3, 8 am 0.9, 3 pm 1.15, 7:30 pm 0.9, ICR 8, ISS 25-35 Interim History: 03/2021 Follow-up visit for type 1 diabetes. unable to do A1c in the office, and blood sugar is 174 , and average 36 units u-500 , . basal 12 am 0.3, 8 am 0.9, 3 pm 1.15, 7:30 pm 0.9, ICR 8, ISS 25-35 Interim History: 12/2020 Follow-up visit for type 1 diabetes. A1c in the office 88.0 and blood sugar is 146 . CGM interpretation not done, for his insulin pump is 100% manual, and average 38 units u-500 , . basal 12 am 0.3, 8 am 0.9, 3 pm 1.15, 7:30 pm 0.9, ICR 8, ISS 25-35 Interim History: 09/2020 Follow-up visit for type 1 diabetes. A1c in the office 8.6 and blood sugar is 257 . CGM interpretation not done, for his insulin pump is 100% manual, and , CGM 1-48-51%. basal 12 am 0.3, 8 am 0.9, 3 pm 1.15, 7:30 pm 0.9, ICR 1:10, ISS 25-35 Interim History: 06/2020. Follow-up visit 07/08/2020 for type 1 diabetes. A1c in the office 7.9 and blood sugar is 204 . CGM interpretation not done, for his insulin pump is 100% manual, and [id number], 43 bolus, 57 basal Interim History: 03/2020. Follow-up visit 04/07/2020 for type 1 diabetes. A1c in the office 9.4 and blood sugar is . He is still the same since we saw him December 2019 and CGM interpretation for his insulin pump is 100% manual, 84 sensor mode, and average 159, 36 bolus, 60 basal, low range, 65 in good range, and 32 in high range. Interim History: 12/2019 Follow-up visit 01/06/20 for type 1 diabetes. He has an insulin pump, using U-500 inside. 12 AM 0.3; 8 AM 0.9; 3 PM 1.1; 7:30 PM 0.9. ICR 1:10; ISS 1:25; 9 PM 1:35 and his blood sugar he says is okay. No severe lows. We saw him today with telemedicine through [employer]. Interim History: 12/2019 Follow-up visit 01/06/20 for type 1 diabetes. He has an insulin pump, using U-500 inside. 12 AM 0.3; 8 AM 0.9; 3 PM 1.1; 7:30 PM 0.9. ICR 1:10; ISS 1:25; 9 PM 1:35 and his blood sugar he says is okay. No severe lows. We saw him today with telemedicine through [employer]. Interim history 08/2019. Followup visit on 09/01/2019 for type 1 diabetes. A1c in the office 8.3, blood sugars 218 and CGM interpretation 1% low range, 65 in good range, 34 in high range, 100% manual mode, sensor reading 84%, average 159, plus-minus 47. Basal rate insulin pump, he is using U-500 , 12 a.m. 0.3, 8 a.m. 0.9, 1 p.m. 1.1, 7:30 p.m. 0.6. ICR 1:10 and ISS at 12 a.m. 25, 8 a.m. 35. Interim history: 04/2019 Follow-up visit 05/12/19 for type 1 diabetes. A1c in the office is 8.5, blood sugar 187. CGM interpretation: 2% low range, 70% in good range, 26% in high range and 2% in very high range. He is on manual mode since average is 153 +/- 46 and are 88%. Pump readings: total daily dose 39, basal 36, bolus 64, carb 186 and active insulin 4 hours. Basal rate: 12 AM 0.3; 8 AM 0.9; 3 PM 1.1; 7:30 PM 0.6; ICR 1:10; ISS: 12 AM 25; 9 PM 35 and that is using U-500 inside the pump. Interim history: 01/2019 Follow-up visit 02/10/19. A1c in the office 8.3, blood sugars 181. CGM interpretation: 1% low range, 50% good range, 36% in high range and 13% in severe high range. Average blood sugar is 183. Total daily dose 28 and 50-50. Pump interpretation: 2% in low range, 85% in good range, 13% high range. Total daily dose 34 units and 62 bolus, 38 basal and change every four days and average blood sugar is 133. Basal rate 12 AM 0.3, 8 AM 0.9, 3 PM 1.1, 7:30 PM 0.6. ICR 12 AM 1:[address], ISS 12 AM 25, 9 PM 35 and active insulin 6 hours. Interim History 10/2018: Followup visit on 11/04/2018 for type 1 diabetes. A1c in the office is 7.9, blood sugar 109. He has CGM 66%, average blood sugar 146, 2.2 per day. Total daily dose 31. He is using U-500, 55% basal, 45 bolus. He has 2% in the low range, 77% in good range, 19% in high range and 2% in the higher range. Basal rate 12 a.m. 0.3, 8 a.m. 0.9, 3 p.m. 1.1, 7:30 p.m. 0.6. ICR 1:12, ISS between 25 to 35. Interim History: 06/17 Followup visit on 06/16/18 for type 1 diabetes. A1c in the office 7.2, CGM interpretation was meter's lowest 29, highest 224, average 126. Pump settings 12 a.m. 0.4, 8 a.m. 0.9, 3 p.m. 1.1. He has low blood sugars during the night, and he go to sleep usually at 9 p.m. ICR 12, ISS 12 a.m. 25, 9 p.m. 35. Interim history 03/17 Follow-up visit 03/20/18 A1c's office 8.4 he is on Levemir 50 units twice a day, H 60 units twice a day plus sliding scale and ON AVG 30 minute extra, and did not start insulin pump yet to be able to his A1c to be less than 10 and his boyfriend with him at this visit Interim history, 12/15: Followup visit on 12/17/2017 for type 1 diabetes. Blood sugar in the office 12. He is on Basaglar 30-40 units twice a day, Humalog to 20-30 units every meal. His meter in good range lowest 36, highest 354, average 125, number of readings 65 and he is still in the process of an insulin pump and he needs 90 days for look and recommendation. Interim history, 11/17: Followup visit on 11/21/2017 for type 1 diabetes. Meter lowest 24, highest 268. 1.1 per day, average 123, 34 number of readings. Blood sugar in office 88. He is on Basaglar 35 twice a day. Decrease his Humalog to 20 units twice a day, plus the scale. He has his U-500 vial, but did not start insulin pump yet. Lab in 11/17: Kidney function within normal limits. Total cholesterol 201. Triglycerides 323, HDL 38, LDL 98. TSH 1.8, albumin/creatinine 4.6, vitamin D 21. HPI: present with DM2 in 09/2017, A1c results 10.1, blood glucose in the office 157 taking: jail insulin : Basaglar 35 units bid short term insulin: humalog 60 units bid plus ISS? No increased thirst or urination. No indigestion, N/V/D or abd. pain. No extremity weakness. Numbness and tingling YES Compared to the last visit new visit The diet that the patient's following carb count The last eye exam due Frequency of exercise rarely Frequency of monitoring 4 times Hypoglycemia episodes none Blood glucose results are evaluated by recall Kidney function unknown The feet had numbess Cardiovascular review of systems reveals history of none Diabetic education needs one Side effects of medication none compliance to medical management plan good new patient for type 1 diabetes since age 20, is off insulin pump for 7 months due to off insurance, now in 10/17,is on basaglar 35 units twice a day, Humalog 60 units twice a day plus a sliding scale average 70 units twice a day used to be on U- 500 around 20 units 3 times a day which that gave him average 300 units Alexei daily (0.6ml) He is interested to go with insulin pump back with U-500 inside SUBJECTIVE: MEDICATIONS: Current Outpatient Medications Medication Instructions Aspirin Low Dose 81 mg, Oral, Daily atorvastatin (LIPITOR) 80 mg, Oral, Nightly Cholecalciferol (D3) 50 MCG (1999 UT) chewable tablet Chew clomiPRAMINE (ANAFRANIL) 25 mg, Oral, Nightly Continuous Glucose Sensor (Dexcom G7 Sensor) misc 1 kit, Does not apply, Every 10 days fenofibrate (TRIGLIDE) 160 mg, Oral, Nightly furosemide (LASIX) 40 mg, Daily Gvoke HypoPen 1-Pack 1 mg, Once as needed hydrOXYzine pamoate (VISTARIL) 25 mg, 3 times daily PRN insulin regular (HumuLIN R) 500 UNIT/ML CONCENTRATED injection Inject 250 units (0.5 mL) under the skin daily via pump. lisinopril 20 mg, Daily metoprolol succinate XL (TOPROL-XL) 50 mg, Oral, 2 times daily (05/11) multivitamin (Theragran) tablet 1 tablet, Daily nabumetone (RELAFEN) 500 mg, Oral, 2 times daily sertraline (ZOLOFT) 50 mg, Oral, Daily sildenafil (VIAGRA) 25 mg, Oral, Daily PRN thiamine (VITAMIN B-1) 100 mg, Daily traZODone (DESYREL) 100 mg, Nightly ALLERGIES: Allergies Allergen Reactions Wound Dressing Adhesive Past Medical History: Diagnosis Date Bilateral leg edema Chest pain, central Chronic neck pain Early satiety Hyperlipidemia, unspecified Hypertension Insomnia, persistent custodial (current) use of insulin ([facility]) MDD (major depressive disorder), recurrent episode, mild Premature ejaculation Presence of insulin pump (external) (internal) Tachycardia Type 2 diabetes mellitus with diabetic polyneuropathy, with long-term current use of insulin ([facility]) Type 2 diabetes mellitus with hyperglycemia, with long-term current use of insulin ([facility]) Vitamin D deficiency Wrist pain, chronic, right No past surgical history on file. REVIEW OF SYMPTOMS: 14 POINT OF SYSTEM REVIEWED AND NEGATIVE OBJECTIVE: Constitutional: Afebrile @ home; no weakness or night sweats SKIN: No change in skin color; no itching, rash or lesions; no hair loss; HEENT: No HAs or injury; no dizziness; No difficulty with vision; no eye pain, discharge or lesions; no hearing loss or difficulty; no nasal discharge, NECK: No pain, limitation of motion, lumps or swollen glands RESP: No cough, wheezing or difficulty breathing. No CP with breathing; CARDIO: No CP , SOB or fatigue, No edema, palpitations or dyspnea with exertion GI: No N/V/D or abd. pain; good appetite with no recent change. No heart burn, liver or gallbladder disease; no rectal bleeding or pain : No urinary pain , frequency or odor. MUSCULOSKELETAL: No muscle pain or cramps; no extremity weakness.No joint pain, stiffness, swelling or limitation of movement NEUROLOGY: No H/O seizures, stroke or fainting. No weakness, tremors. Hematology: No bleeding problems or excessive bruising ENDOCRINE: No increase in hunger, thirst or urination; admits compliance to medical management plan Feet: numbness tingling yes , ulcers or skin break no Lab Results Component Value Date HGBA1C 12.1 05/07/2025 HGBA1C 9.0 01/01/2025 HGBA1C 7.6 09/09/2024 Lab Results Component Value Date GLU 155 06/10/2025 GLU 254 05/07/2025 GLU 160 01/01/2025 09/09/2024 10:41 AM 09/14/2024 8:32 AM 12/16/2024 9:02 AM 01/01/2025 10:03 AM 04/23/2025 11:27 AM 05/07/2025 9:38 AM 06/10/2025 9:57 AM Vitals BMI 44.95 kg/m2 43.7 kg/m2 45.73 kg/m2 47.61 kg/m2 44.17 kg/m2 43.85 kg/m2 47.46 kg/m2 BSA (m2) 2.48 m2 2.45 m2 2.5 m2 2.55 m2 2.46 m2 2.45 m2 2.54 m2 Systolic 110 126 142 110 142 114 Diastolic 72 74 78 70 68 76 Heart Rate 81 89 86 83 122 65 84 SpO2 96 % 95 % 99 % 97 % 98 % 97 % Temp 97.8 F 97 F 96.4 F Resp 18 18 18 18 20 16 18 Height (in) 5' 7 5' 7 5' 7 5' 7 5' 7 5' 7 5' 7 Weight (lb) 287 279 292 304 282 280 303 Visit Report Report Report Report Report Report Report Report ASSESSMENT AND PLAN: Assessment/Plan Diagnoses and all orders for this visit: Type 1 diabetes mellitus with hyperglycemia ([facility]) - POCT glucose manually resulted Change his basal rate to 12:00 a.m. 0.3, 8:00 a.m. 1.2, 4:00 p.m. 1.5 7:00 p.m. 0.8, keep carb ratio and sensitivity the same. Encounter for dietary consultation Vitamin D deficiency Encounter for fitting or adjustment of insulin pump Insulin pump in place Insulin long-term use (HCC) High risk medication use Class 3 severe obesity due to excess calories with serious comorbidity and body mass index (BMI) of 45.0 to 49.9 in adult ([facility]) Diet and exercise reviewed with the patient hypoglycemia Follow up in about 2 months (around 08/10/2025). documented in this encounter [facility] 05-28-2025 Telephone encounter Note Please resend signed pump order, Khloe did not receive. Training is at 11 today. She would also like his last note with settings for his medtronic pump please. Thank you! [facility] 05-28-2025 Miscellaneous Notes Please resend signed pump order, Khloe did not receive. Training is at 11 today. She would also like his last note with settings for his medtronic pump please. Thank you! documented in this encounter [facility] 05-17-2025 Telephone encounter Note Hossein left message that [employer] is trying to get ahold of you for his settings. Please call Hossein with questions [phone] [facility] 05-17-2025 Miscellaneous Notes Hossein left message that [employer] is trying to get ahold of you for his settings. Please call Hossein with questions [phone] documented in this encounter [facility] 05-07-2025 History of Presen t illness Narrative Images from the original note were not included. Hossein Zamarripa is a 34 y.o. male No ref. provider found presents with chief complaint of No chief complaint on file. HPI: Interim History: 04/2025 Follow-up visit 05/07/2025 for type 1 diabetes, a1C 12.6, BG 254, units u-500 , basal 12 am 0.35, 8 am 1.2, 3 pm 1.3, 7:30 pm 1.05, ICR 7, ISS 20. His number are bad because his CGM does not communicate to the pump, and he wants to switch to Omnipod with Dexcom 7. Interim History: 12/2024 Follow-up visit 01/01/2025 for type 1 diabetes, a1C 9, BG 160, units u-500 , basal 12 am 0.35, 8 am 1.2, 3 pm 1.3, 7:30 pm 1.05, ICR 7, ISS 20. Off ozepmic due to cost. CGM avg 240. Interim History: 08/2024 Follow-up visit 09/09/2024 for type 1 diabetes, a1C 7.6 with PCP office, BG 110, units u-500 , basal 12 am 0.35, 8 am 1.2, 3 pm 1.3, 7:30 pm 1.05, ICR 7, ISS 20. Interim History: 05/2024 Follow-up visit 06/03/2024 for type 1 diabetes, a1C 8 with PCP office, BG 125 , units u-500 , basal 12 am 0.35, 8 am 1.2, 3 pm 1.3, 7:30 pm 1.05, ICR 7, ISS 20. AVG 205, CGM 0-67-23 %, 55/45%. Interim History: 02/2024 Follow-up visit 03/11/2024 for type 1 diabetes, a1C 8.5 with PCP office, BG 137 , units u-500 , basal 12 am 0.35, 8 am 1.2, 3 pm 1.3, 7:30 pm 1.05, ICR 7, ISS 20. AVG 205, CGM 0-70-30 %, 47/53%. Interim History: 11/2023 Follow-up visit 12/04/2023 for type 1 diabetes, a1C 8.3 with PCP office, BG 121 , units u-500 , basal 12 am 0.35, 8 am 1.2, 3 pm 1.3, 7:30 pm 1.05, ICR 7, ISS 20. AVG 197, CGM 1-49-50 %, 41-59 %. Interim History: 05/2023 Follow-up visit 06/12/2023 for type 1 diabetes, a1C 8.7 with PCP office, BG 148 , units u-500 , basal 12 am 0.35, 8 am 1.2, 3 pm 1.3, 7:30 pm 1.05, ICR 6, ISS 20. AVG 194, CGM 0-50-50%, TDD 59, 65/35%. Interim History: 02/2023 Follow-up visit 03/06/2023 for type 1 diabetes, a1C 8.9 with PCP office, BG 198 , units u-500 , basal 12 am 0.35, 8 am 1.2, 3 pm 1.3, 7:30 pm 1.05, ICR 7, ISS 25-35. AVG 209, 43/57%, TDD 47 Interim History: 11/2022 Follow-up visit 12/05/2022 for type 1 diabetes, a1C 8.7 with PCP office , BG 1123 , units u-500 , basal 12 am 0.35, 8 am 1.2, 3 pm 1.3, 7:30 pm 1.05, ICR 8, ISS 25-35. Interim History: 07/2022 Follow-up visit 08/28/2022 for type 1 diabetes, a1C 8.1 with PCP office , BG 172 , units u-500 , basal 12 am 0.35, 8 am 1.2, 3 pm 1.3, 7:30 pm 1.05, ICR 8, ISS 25-35. got a new pump Interim History: 05/2022 Follow-up visit 06/19/2022 for type 1 diabetes, a1C 8.7 , BG 159 , and average 44 units u-500 , basal 12 am 0.35, 8 am 1.2, 3 pm 1.3, 7:30 pm 1.05, ICR 8, ISS 25-35. off pump for 4 days and using by syringes 50-75 actual units till get a new pump Interim History: 12/2021 Follow-up visit 01/18/2022 for type 1 diabetes, a1C 7.4 , BG 143 , and average 41 units u-500 , . basal 12 am 0.35, 8 am 1.2,, 3 pm 1.3, 7:30 pm 1.05, ICR 8, ISS 25-35. Interim History: 09/2021 Follow-up visit 10/13/2021 for type 1 diabetes, a1C 8.6, BG 221 , and average 43 units u-500 , . basal 12 am 0.3, 8 am 0.9, 3 pm 1.15, 7:30 pm 0.9, ICR 8, ISS 25-35. eye showed retinopathy Interim History: 06/2021 Follow-up visit for type 1 diabetes, a1C 7.6, BG 161 , and average 37 units u-500 , . basal 12 am 0.3, 8 am 0.9, 3 pm 1.15, 7:30 pm 0.9, ICR 8, ISS 25-35 Interim History: 03/2021 Follow-up visit for type 1 diabetes. unable to do A1c in the office, and blood sugar is 174 , and average 36 units u-500 , . basal 12 am 0.3, 8 am 0.9, 3 pm 1.15, 7:30 pm 0.9, ICR 8, ISS 25-35 Interim History: 12/2020 Follow-up visit for type 1 diabetes. A1c in the office 88.0 and blood sugar is 146 . CGM interpretation not done, for his insulin pump is 100% manual, and average 38 units u-500 , . basal 12 am 0.3, 8 am 0.9, 3 pm 1.15, 7:30 pm 0.9, ICR 8, ISS 25-35 Interim History: 09/2020 Follow-up visit for type 1 diabetes. A1c in the office 8.6 and blood sugar is 257 . CGM interpretation not done, for his insulin pump is 100% manual, and [id number], CGM 1-48-51%. basal 12 am 0.3, 8 am 0.9, 3 pm 1.15, 7:30 pm 0.9, ICR 1:10, ISS 25-35 Interim History: 06/2020. Follow-up visit 07/08/2020 for type 1 diabetes. A1c in the office 7.9 and blood sugar is 204 . CGM interpretation not done, for his insulin pump is 100% manual, and [id number], 43 bolus, 57 basal Interim History: 03/2020. Follow-up visit 04/07/2020 for type 1 diabetes. A1c in the office 9.4 and blood sugar is . He is still the same since we saw him December 2019 and CGM interpretation for his insulin pump is 100% manual, 84 sensor mode, and average 159, 36 bolus, 60 basal, low range, 65 in good range, and 32 in high range. Interim History: 12/2019 Follow-up visit 01/06/20 for type 1 diabetes. He has an insulin pump, using U-500 inside. 12 AM 0.3; 8 AM 0.9; 3 PM 1.1; 7:30 PM 0.9. ICR 1:10; ISS 1:25; 9 PM 1:35 and his blood sugar he says is okay. No severe lows. We saw him today with telemedicine through [employer]. Interim History: 12/2019 Follow-up visit 01/06/20 for type 1 diabetes. He has an insulin pump, using U-500 inside. 12 AM 0.3; 8 AM 0.9; 3 PM 1.1; 7:30 PM 0.9. ICR 1:10; ISS 1:25; 9 PM 1:35 and his blood sugar he says is okay. No severe lows. We saw him today with telemedicine through [employer]. Interim history 08/2019. Followup visit on 09/01/2019 for type 1 diabetes. A1c in the office 8.3, blood sugars 218 and CGM interpretation 1% low range, 65 in good range, 34 in high range, 100% manual mode, sensor reading 84%, average 159, plus-minus 47. Basal rate insulin pump, he is using U-500 , 12 a.m. 0.3, 8 a.m. 0.9, 1 p.m. 1.1, 7:30 p.m. 0.6. ICR 1:10 and ISS at 12 a.m. 25, 8 a.m. 35. Interim history: 04/2019 Follow-up visit 05/12/19 for type 1 diabetes. A1c in the office is 8.5, blood sugar 187. CGM interpretation: 2% low range, 70% in good range, 26% in high range and 2% in very high range. He is on manual mode since average is 153 +/- 46 and are 88%. Pump readings: total daily dose 39, basal 36, bolus 64, carb 186 and active insulin 4 hours. Basal rate: 12 AM 0.3; 8 AM 0.9; 3 PM 1.1; 7:30 PM 0.6; ICR 1:10; ISS: 12 AM 25; 9 PM 35 and that is using U-500 inside the pump. Interim history: 01/2019 Follow-up visit 02/10/19. A1c in the office 8.3, blood sugars 181. CGM interpretation: 1% low range, 50% good range, 36% in high range and 13% in severe high range. Average blood sugar is 183. Total daily dose 28 and 50-50. Pump interpretation: 2% in low range, 85% in good range, 13% high range. Total daily dose 34 units and 62 bolus, 38 basal and change every four days and average blood sugar is 133. Basal rate 12 AM 0.3, 8 AM 0.9, 3 PM 1.1, 7:30 PM 0.6. ICR 12 AM 1:[address], ISS 12 AM 25, 9 PM 35 and active insulin 6 hours. Interim History 10/2018: Followup visit on 11/04/2018 for type 1 diabetes. A1c in the office is 7.9, blood sugar 109. He has CGM 66%, average blood sugar 146, 2.2 per day. Total daily dose 31. He is using U-500, 55% basal, 45 bolus. He has 2% in the low range, 77% in good range, 19% in high range and 2% in the higher range. Basal rate 12 a.m. 0.3, 8 a.m. 0.9, 3 p.m. 1.1, 7:30 p.m. 0.6. ICR 1:12, ISS between 25 to 35. Interim History: 06/17 Followup visit on 06/16/18 for type 1 diabetes. A1c in the office 7.2, CGM interpretation was meter's lowest 29, highest 224, average 126. Pump settings 12 a.m. 0.4, 8 a.m. 0.9, 3 p.m. 1.1. He has low blood sugars during the night, and he go to sleep usually at 9 p.m. ICR 12, ISS 12 a.m. 25, 9 p.m. 35. Interim history 03/17 Follow-up visit 03/20/18 A1c's office 8.4 he is on Levemir 50 units twice a day, H 60 units twice a day plus sliding scale and ON AVG 30 minute extra, and did not start insulin pump yet to be able to his A1c to be less than 10 and his boyfriend with him at this visit Interim history, 12/15: Followup visit on 12/17/2017 for type 1 diabetes. Blood sugar in the office 12. He is on Basaglar 30-40 units twice a day, Humalog to 20-30 units every meal. His meter in good range lowest 36, highest 354, average 125, number of readings 65 and he is still in the process of an insulin pump and he needs 90 days for look and recommendation. Interim history, 11/17: Followup visit on 11/21/2017 for type 1 diabetes. Meter lowest 24, highest 268. 1.1 per day, average 123, 34 number of readings. Blood sugar in office 88. He is on Basaglar 35 twice a day. Decrease his Humalog to 20 units twice a day, plus the scale. He has his U-500 vial, but did not start insulin pump yet. Lab in 11/17: Kidney function within normal limits. Total cholesterol 201. Triglycerides 323, HDL 38, LDL 98. TSH 1.8, albumin/creatinine 4.6, vitamin D 21. HPI: present with DM2 in 09/2017, A1c results 10.1, blood glucose in the office 157 taking: jail insulin : Basaglar 35 units bid short term insulin: humalog 60 units bid plus ISS? No increased thirst or urination. No indigestion, N/V/D or abd. pain. No extremity weakness. Numbness and tingling YES Compared to the last visit new visit The diet that the patient's following carb count The last eye exam due Frequency of exercise rarely Frequency of monitoring 4 times Hypoglycemia episodes none Blood glucose results are evaluated by recall Kidney function unknown The feet had numbess Cardiovascular review of systems reveals history of none Diabetic education needs one Side effects of medication none compliance to medical management plan good new patient for type 1 diabetes since age 20, is off insulin pump for 7 months due to off insurance, now in 10/17,is on basaglar 35 units twice a day, Humalog 60 units twice a day plus a sliding scale average 70 units twice a day used to be on U- 500 around 20 units 3 times a day which that gave him average 300 units Alexei daily (0.6ml) He is interested to go with insulin pump back with U-500 inside SUBJECTIVE: MEDICATIONS: Current Outpatient Medications Medication Instructions Aspirin Low Dose 81 mg, Oral, Daily atorvastatin (LIPITOR) 80 mg, Oral, Nightly Cholecalciferol (D3) 50 MCG (1999) chewable tablet Chew clomiPRAMINE (ANAFRANIL) 25 mg, Oral, Nightly Continuous Glucose Sensor (Dexcom G7 Sensor) misc 1 kit, Does not apply, Every 10 days fenofibrate (TRIGLIDE) 160 mg, Oral, Nightly furosemide (LASIX) 40 mg, Daily Gvoke HypoPen 1-Pack 1 mg, Once as needed hydrOXYzine pamoate (VISTARIL) 25 mg, 3 times daily PRN insulin regular (HumuLIN R) 500 UNIT/ML CONCENTRATED injection Inject 250 units (0.5 mL) under the skin daily via pump. lisinopril 20 mg, Daily metoprolol succinate XL (TOPROL-XL) 50 mg, Oral, 2 times daily (05/11) multivitamin (Theragran) tablet 1 tablet, Daily nabumetone (RELAFEN) 500 mg, Oral, 2 times daily sertraline (ZOLOFT) 50 mg, Oral, Daily sildenafil (VIAGRA) 25 mg, Oral, Daily PRN thiamine (VITAMIN B-1) 100 mg, Daily traZODone (DESYREL) 100 mg, Nightly ALLERGIES: Allergies Allergen Reactions Wound Dressing Adhesive Past Medical History: Diagnosis Date Bilateral leg edema Chest pain, central Chronic neck pain Early satiety Hyperlipidemia, unspecified Hypertension Insomnia, persistent custodial (current) use of insulin ([facility]) MDD (major depressive disorder), recurrent episode, mild Premature ejaculation Presence of insulin pump (external) (internal) Tachycardia Type 2 diabetes mellitus with diabetic polyneuropathy, with long-term current use of insulin ([facility]) Type 2 diabetes mellitus with hyperglycemia, with long-term current use of insulin ([facility]) Vitamin D deficiency Wrist pain, chronic, right No past surgical history on file. REVIEW OF SYMPTOMS: 14 POINT OF SYSTEM REVIEWED AND NEGATIVE OBJECTIVE: Constitutional: Afebrile @ home; no weakness or night sweats SKIN: No change in skin color; no itching, rash or lesions; no hair loss; HEENT: No HAs or injury; no dizziness; No difficulty with vision; no eye pain, discharge or lesions; no hearing loss or difficulty; no nasal discharge, NECK: No pain, limitation of motion, lumps or swollen glands RESP: No cough, wheezing or difficulty breathing. No CP with breathing; CARDIO: No CP , SOB or fatigue, No edema, palpitations or dyspnea with exertion GI: No N/V/D or abd. pain; good appetite with no recent change. No heart burn, liver or gallbladder disease; no rectal bleeding or pain : No urinary pain , frequency or odor. MUSCULOSKELETAL: No muscle pain or cramps; no extremity weakness.No joint pain, stiffness, swelling or limitation of movement NEUROLOGY: No H/O seizures, stroke or fainting. No weakness, tremors. Hematology: No bleeding problems or excessive bruising ENDOCRINE: No increase in hunger, thirst or urination; admits compliance to medical management plan Feet: numbness tingling yes , ulcers or skin break no Lab Results Component Value Date HGBA1C 12.1 05/07/2025 HGBA1C 9.0 01/01/2025 HGBA1C 7.6 09/09/2024 Lab Results Component Value Date GLU 254 05/07/2025 GLU 160 01/01/2025 GLU 331 (H) 11/18/2024 06/11/2024 9:20 AM 09/09/2024 10:41 AM 09/14/2024 8:32 AM 12/16/2024 9:02 AM 01/01/2025 10:03 AM 04/23/2025 11:27 AM 05/07/2025 9:38 AM Vitals BMI 45.58 kg/m2 44.95 kg/m2 43.7 kg/m2 45.73 kg/m2 47.61 kg/m2 44.17 kg/m2 43.85 kg/m2 BSA (m2) 2.5 m2 2.48 m2 2.45 m2 2.5 m2 2.55 m2 2.46 m2 2.45 m2 Systolic 116 110 126 142 110 142 114 Diastolic 68 72 74 78 70 68 76 Heart Rate 39 81 89 86 83 122 65 SpO2 98 % 96 % 95 % 99 % 97 % 98 % Temp 97.8 F 97.8 F 97 F 96.4 F Resp 20 18 18 18 18 20 16 Height (in) 5' 7 5' 7 5' 7 5' 7 5' 7 5' 7 5' 7 Weight (lb) 291 287 279 292 304 282 280 Visit Report Report Report Report Report Report Report Report ASSESSMENT AND PLAN: Assessment/Plan Diagnoses and all orders for this visit: Type 1 diabetes mellitus with hyperglycemia (HCC) - POCT glucose manually resulted - POCT glycosylated hemoglobin (Hb A1C) docked device We will switch to Omnipod with Dexcom 7, currently he is on Medtronic with manual blood sugar entry. Encounter for dietary consultation Diet and exercise reviewed with the patient, plan for gastric bypass soon Vitamin D deficiency Encounter for fitting or adjustment of insulin pump Insulin pump in place Insulin long-term use (HCC) High risk medication use Follow up in about 3 months (around 08/07/2025). Answers submitted by the patient for this visit: Diabetes Questionnaire (Submitted on 05/03/2025) Chief Complaint: Diabetes problem Diabetes type: type 2 MedicAlert ID: No Disease duration: 15 Years Treatment compliance: most of the time breakfast time: 8-9 am breakfast glucose level: 180-200 lunch time: 2-3 pm lunch glucose level: >200 dinner time: after 8 pm dinner glucose level: 180-200 Bedtime: 10-11 pm Bedtime glucose level: 140-180 documented in this encounter [facility] 04-23-2025 History of Presen t illness Narrative Associated Problem(s): Class 3 severe obesity due to excess calories with serious comorbidity and body mass index (BMI) of 40.0 to 44.9 in adult ([facility]) Weight loss indicated. Associated Problem(s): Type 2 diabetes mellitus with polyneuropathy (HCC) Neuropathy unchanged and use percocet PRN. Associated Problem(s): Type 2 diabetes mellitus with hyperglycemia, with long-term current use of insulin (HCC) BS elevated and follow with endo. Associated Problem(s): MDD (major depressive disorder), recurrent episode, moderate (HCC) Symptoms controlled with zoloft and continue. Associated Problem(s): Bilateral leg edema Edema stable and use lasix PRN. Elevate legs PRN. Associated Problem(s): Benign essential hypertension BP controlled and monitor PRN. Images from the original note were not included. Subjective Patient ID: Hossein Zamarripa is a 34 y.o. male who presents for Follow-up (3m). Follow up HTN, neuropathy, depression, edema, insomnia, and DM. Patient feels well today. Checking BP PRN and typically controlled. BP okay today. Taking medication daily and tolerating without side effects. Neuropathy unchanged. Continued pain and burning in feet. Symptoms worse with walking and standing. Started walking in evenings and increased pain. Using percocet PRN and helps when needed. Depression controlled with medication. Not as down or sad and feels happier. Interacting well with others. Taking zoloft and helps. Edema controlled with medication. Mild swelling at end of day and if on feet a lot. Edema improved in am and with elevation. Following with endo and scheduled next month. Reports BS worse since off ozempic about 2 months. Using insulin pump. Following with surgeon for weight loss surgery. Review of Systems Constitutional: Negative for fatigue. Respiratory: Negative for cough, shortness of breath and wheezing. Cardiovascular: Negative for chest pain and palpitations. Gastrointestinal: Negative for abdominal pain, diarrhea, nausea and vomiting. Genitourinary: Negative for dysuria. Objective Physical Exam Constitutional: General: He is not in acute distress. Appearance: Normal appearance. HENT: Head: Normocephalic. Right Ear: Tympanic membrane and ear canal normal. Left Ear: Tympanic membrane and ear canal normal. Eyes: Extraocular Movements: Extraocular movements intact. Pupils: Pupils are equal, round, and reactive to light. Cardiovascular: Rate and Rhythm: Normal rate and regular rhythm. Heart sounds: No murmur heard. No friction rub. No gallop. Pulmonary: Breath sounds: Normal breath sounds. No wheezing, rhonchi or rales. Abdominal: General: Bowel sounds are normal. There is no distension. Palpations: Abdomen is soft. Tenderness: There is no abdominal tenderness. There is no guarding or rebound. Musculoskeletal: Left lower leg: No edema. Neurological: Mental Status: He is alert. Assessment/Plan Problem List Items Addressed This Visit Benign essential hypertension - Primary BP controlled and monitor PRN. Bilateral leg edema Edema stable and use lasix PRN. Elevate legs PRN. Class 3 severe obesity due to excess calories with serious comorbidity and body mass index (BMI) of 40.0 to 44.9 in adult ([facility]) Weight loss indicated. Type 2 diabetes mellitus with hyperglycemia, with long-term current use of insulin ([facility]) BS elevated and follow with endo. Type 2 diabetes mellitus with polyneuropathy ([facility]) Neuropathy unchanged and use percocet PRN. MDD (major depressive disorder), recurrent episode, moderate ([facility]) Symptoms controlled with zoloft and continue. documented in this encounter [facility] 04-22-2025 Telephone encounter Note Hossein is going to have gastric bypass and Dr Shane would like clearance for surgery. If so I will fax to . [facility] 04-22-2025 Miscellaneous Notes Hossein is going to have gastric bypass and Dr Shane would like clearance for surgery. If so I will fax to . documented in this encounter [facility] 01-08-2025 Note SUBJECTIVE Reason for Visit: Hossein Zamarripa is a 34 y.o. year old male patient being seen for follow-up visit. HPI: Hossein Zamarripa is a 34 y.o. year old male with significant medical history of anxiety, depression, HTN, DM using insulin pump, and tachycardia. 01/08/2025 office visit: Patient was seen and evaluated in the office today for a follow-up visit. He reports being off Ozempic the last two months due to cost and loss of insurance coverage, during which time his hemoglobin A1c increased from 8.1% to 9.0%, and his weight kurtis to 300 lbs. He was able to restart Ozempic last week through his head and neck surgeon, who provided a two-month free supply. He reports losing 10 pounds since restarting. He also mentions that he was considering weight loss surgery prior to losing his insurance. He endorses dyspnea on exertion, which remains stable and unchanged since his last visit. He also reports mild lower extremity swelling. He denies lightheadedness, dizziness, or palpitations. Overall, he feels he is doing okay. He is currently awaiting Medicaid coverage, as his recently lost his insurance. 10/28/2024: Pt presents for office visit PM of anxiety, HTN, tachycardia. He denies chest pain, palpitations, dizziness, endorses MELÉNDEZ. 04/09/2024 office visit (Dr. Diaz): Hossein Zamarripa is a 33 y.o. male who was initially referred to Cardiology clinic for chest pain, palpitations, and abnormal stress test. At that time, stress test demonstrated a fixed defect with no reversible ischemia. Patient here for 6 mo follow up hyperlipidemia and sinus tachycardia. He was admitted to [facility] in December 2023 for tachycardia. Echo was performed and was unremarkable. Metoprolol was doubled to 50mg bid upon discharge. He has been doing well with this. He denies any anginal chest pain. He says on occasion, he will have a sharp chest pain with numbness that radiates into his arm when he sneezes harshly. No chest pain with activity. Breathing is stable. No dizziness or lightheadedness. No lower extremity edema, orthopnea, or PND. 10/25/2023 office visit (Breonna London CNP): Patient here for 6 mo follow up chest pain, sinus tachycardia, hypertension, and hyperlipidemia. Chest pain and palpitations have resolved. Only taking lasix about once a month. No recent labs/imaging since last visit. Doing well on current medications. 05/30/2023 office visit (Dr. Contreras): Today, patient states that he is doing well. He states that chest pain and palpitations have improved significantly. He has Berny on rare occasion several episodes of chest pain. He is usually occur with rest and are not worsened with exertion. They are atypical in nature. He denies any exertional chest pain. Denies any dyspnea on exertion. He denies any lower extremity with orthopnea, or paroxysmal nocturnal dyspnea. He is taking his Lasix as needed. No additional complaints or concerns at the present time. 02/13/2023 office visit (Breonna Loera CNP): His symptoms have been improved since last seen. He has only had 2 occurences of chest pain since last seen. Both occurred at rest and lasted for about 5 minutes then resolved on their own. He denies any further issues with palpitations. He does not check his BP at home. He gets some leg swelling that is controlled by his water pills. He denies c/o dyspnea, dizziness/LH, orthopnea, PND, syncope. 01/03/2023 office visit (Wilbert Loera CNP): He has been having left sided chest pain for the past 3 months. Onset has no known cause. Occurs anywhere from 3-5 days a week. Pain is sharp/achy pain, 5-7/10. Pain radiates to his left shoulder. Occurs at rest or exertion. If he is walking and it occurs he will get accompanied SOB, if it occurs at rest he denies any accompanied sx's. Can last for 15mins to all day. Nothing seems to make it better such as drinking milk, water, pressing on the area. When this first started, he was having elevated HRs in the 140s along with elevated BPs. He c/o intermittent palpitations with elevated HRs. Sometimes chest pain accompanies the palpitations and other times it occurs by itself. He has some dyspnea on exertion with heavier exertion, this has been stable for him and not worsening. He follows with endocrinology for his DM management, Dr. Byrne in [place]. He states his BP typically runs in the 200s. Past Medical History: Diagnosis Date Hyperlipidemia Hypertension Type 2 diabetes mellitus (CMS/HCC) No past surgical history on file. Patient Active Problem List Diagnosis Type 2 diabetes mellitus (CMS/HCC) Snoring Hypertensive disorder Hyperlipidemia Diabetic neuropathy (CMS/HCC) Neuropathy Sleep disturbances Class 3 severe obesity due to excess calories in adult (CMS/HCC) Sinus tachycardia Annual physical exam Benign essential hypertension Bilateral leg edema Chronic neck pain Dyslipidemia Premature ejacul (more content not included)... [facility] 01-01-2025 History of Brooks jackson illness Narrative Images from the original note were not included. Hossein Zamarripa is a 34 y.o. male No ref. provider found presents with chief complaint of Diabetes and Follow-up (LAB) HPI: Interim History: 12/2024 Follow-up visit 01/01/2025 for type 1 diabetes, a1C 9, BG 160, units u-500 , basal 12 am 0.35, 8 am 1.2, 3 pm 1.3, 7:30 pm 1.05, ICR 7, ISS 20. Off ozepmic due to cost. CGM avg 240. Interim History: 08/2024 Follow-up visit 09/09/2024 for type 1 diabetes, a1C 7.6 with PCP office, BG 110, units u-500 , basal 12 am 0.35, 8 am 1.2, 3 pm 1.3, 7:30 pm 1.05, ICR 7, ISS 20. Interim History: 05/2024 Follow-up visit 06/03/2024 for type 1 diabetes, a1C 8 with PCP office, BG 125 , units u-500 , basal 12 am 0.35, 8 am 1.2, 3 pm 1.3, 7:30 pm 1.05, ICR 7, ISS 20. AVG 205, CGM 0-67-23 %, 55/45%. Interim History: 02/2024 Follow-up visit 03/11/2024 for type 1 diabetes, a1C 8.5 with PCP office, BG 137 , units u-500 , basal 12 am 0.35, 8 am 1.2, 3 pm 1.3, 7:30 pm 1.05, ICR 7, ISS 20. AVG 205, CGM 0-70-30 %, 47/53%. Interim History: 11/2023 Follow-up visit 12/04/2023 for type 1 diabetes, a1C 8.3 with PCP office, BG 121 , units u-500 , basal 12 am 0.35, 8 am 1.2, 3 pm 1.3, 7:30 pm 1.05, ICR 7, ISS 20. AVG 197, CGM 1-49-50 %, 41-59 %. Interim History: 05/2023 Follow-up visit 06/12/2023 for type 1 diabetes, a1C 8.7 with PCP office, BG 148 , units u-500 , basal 12 am 0.35, 8 am 1.2, 3 pm 1.3, 7:30 pm 1.05, ICR 6, ISS 20. AVG 194, CGM 0-50-50%, TDD 59, 65/35%. Interim History: 02/2023 Follow-up visit 03/06/2023 for type 1 diabetes, a1C 8.9 with PCP office, BG 198 , units u-500 , basal 12 am 0.35, 8 am 1.2, 3 pm 1.3, 7:30 pm 1.05, ICR 7, ISS 25-35. AVG 209, 43/57%, TDD 47 Interim History: 11/2022 Follow-up visit 12/05/2022 for type 1 diabetes, a1C 8.7 with PCP office , BG 1123 , units u-500 , basal 12 am 0.35, 8 am 1.2, 3 pm 1.3, 7:30 pm 1.05, ICR 8, ISS 25-35. Interim History: 07/2022 Follow-up visit 08/28/2022 for type 1 diabetes, a1C 8.1 with PCP office , BG 172 , units u-500 , basal 12 am 0.35, 8 am 1.2, 3 pm 1.3, 7:30 pm 1.05, ICR 8, ISS 25-35. got a new pump Interim History: 05/2022 Follow-up visit 06/19/2022 for type 1 diabetes, a1C 8.7 , BG 159 , and average 44 units u-500 , basal 12 am 0.35, 8 am 1.2, 3 pm 1.3, 7:30 pm 1.05, ICR 8, ISS 25-35. off pump for 4 days and using by syringes 50-75 actual units till get a new pump Interim History: 12/2021 Follow-up visit 01/18/2022 for type 1 diabetes, a1C 7.4 , BG 143 , and average 41 units u-500 , . basal 12 am 0.35, 8 am 1.2,, 3 pm 1.3, 7:30 pm 1.05, ICR 8, ISS 25-35. Interim History: 09/2021 Follow-up visit 10/13/2021 for type 1 diabetes, a1C 8.6, BG 221 , and average 43 units u-500 , . basal 12 am 0.3, 8 am 0.9, 3 pm 1.15, 7:30 pm 0.9, ICR 8, ISS 25-35. eye showed retinopathy Interim History: 06/2021 Follow-up visit for type 1 diabetes, a1C 7.6, BG 161 , and average 37 units u-500 , . basal 12 am 0.3, 8 am 0.9, 3 pm 1.15, 7:30 pm 0.9, ICR 8, ISS 25-35 Interim History: 03/2021 Follow-up visit for type 1 diabetes. unable to do A1c in the office, and blood sugar is 174 , and average 36 units u-500 , . basal 12 am 0.3, 8 am 0.9, 3 pm 1.15, 7:30 pm 0.9, ICR 8, ISS 25-35 Interim History: 12/2020 Follow-up visit for type 1 diabetes. A1c in the office 88.0 and blood sugar is 146 . CGM interpretation not done, for his insulin pump is 100% manual, and average 38 units u-500 , . basal 12 am 0.3, 8 am 0.9, 3 pm 1.15, 7:30 pm 0.9, ICR 8, ISS 25-35 Interim History: 09/2020 Follow-up visit for type 1 diabetes. A1c in the office 8.6 and blood sugar is 257 . CGM interpretation not done, for his insulin pump is 100% manual, and [id number], CGM 1-48-51%. basal 12 am 0.3, 8 am 0.9, 3 pm 1.15, 7:30 pm 0.9, ICR 1:10, ISS 25-35 Interim History: 06/2020. Follow-up visit 07/08/2020 for type 1 diabetes. A1c in the office 7.9 and blood sugar is 204 . CGM interpretation not done, for his insulin pump is 100% manual, and [id number], 43 bolus, 57 basal Interim History: 03/2020. Follow-up visit 04/07/2020 for type 1 diabetes. A1c in the office 9.4 and blood sugar is . He is still the same since we saw him December 2019 and CGM interpretation for his insulin pump is 100% manual, 84 sensor mode, and average 159, 36 bolus, 60 basal, low range, 65 in good range, and 32 in high range. Interim History: 12/2019 Follow-up visit 01/06/20 for type 1 diabetes. He has an insulin pump, using U-500 inside. 12 AM 0.3; 8 AM 0.9; 3 PM 1.1; 7:30 PM 0.9. ICR 1:10; ISS 1:25; 9 PM 1:35 and his blood sugar he says is okay. No severe lows. We saw him today with telemedicine through [employer]. Interim History: 12/2019 Follow-up visit 01/06/20 for type 1 diabetes. He has an insulin pump, using U-500 inside. 12 AM 0.3; 8 AM 0.9; 3 PM 1.1; 7:30 PM 0.9. ICR 1:10; ISS 1:25; 9 PM 1:35 and his blood sugar he says is okay. No severe lows. We saw him today with telemedicine through [employer]. Interim history 08/2019. Followup visit on 09/01/2019 for type 1 diabetes. A1c in the office 8.3, blood sugars 218 and CGM interpretation 1% low range, 65 in good range, 34 in high range, 100% manual mode, sensor reading 84%, average 159, plus-minus 47. Basal rate insulin pump, he is using U-500 , 12 a.m. 0.3, 8 a.m. 0.9, 1 p.m. 1.1, 7:30 p.m. 0.6. ICR 1:10 and ISS at 12 a.m. 25, 8 a.m. 35. Interim history: 04/2019 Follow-up visit 05/12/19 for type 1 diabetes. A1c in the office is 8.5, blood sugar 187. CGM interpretation: 2% low range, 70% in good range, 26% in high range and 2% in very high range. He is on manual mode since average is 153 +/- 46 and are 88%. Pump readings: total daily dose 39, basal 36, bolus 64, carb 186 and active insulin 4 hours. Basal rate: 12 AM 0.3; 8 AM 0.9; 3 PM 1.1; 7:30 PM 0.6; ICR 1:10; ISS: 12 AM 25; 9 PM 35 and that is using U-500 inside the pump. Interim history: 01/2019 Follow-up visit 02/10/19. A1c in the office 8.3, blood sugars 181. CGM interpretation: 1% low range, 50% good range, 36% in high range and 13% in severe high range. Average blood sugar is 183. Total daily dose 28 and 50-50. Pump interpretation: 2% in low range, 85% in good range, 13% high range. Total daily dose 34 units and 62 bolus, 38 basal and change every four days and average blood sugar is 133. Basal rate 12 AM 0.3, 8 AM 0.9, 3 PM 1.1, 7:30 PM 0.6. ICR 12 AM 1:[address], ISS 12 AM 25, 9 PM 35 and active insulin 6 hours. Interim History 10/2018: Followup visit on 11/04/2018 for type 1 diabetes. A1c in the office is 7.9, blood sugar 109. He has CGM 66%, average blood sugar 146, 2.2 per day. Total daily dose 31. He is using U-500, 55% basal, 45 bolus. He has 2% in the low range, 77% in good range, 19% in high range and 2% in the higher range. Basal rate 12 a.m. 0.3, 8 a.m. 0.9, 3 p.m. 1.1, 7:30 p.m. 0.6. ICR 1:12, ISS between 25 to 35. Interim History: 06/17 Followup visit on 06/16/18 for type 1 diabetes. A1c in the office 7.2, CGM interpretation was meter's lowest 29, highest 224, average 126. Pump settings 12 a.m. 0.4, 8 a.m. 0.9, 3 p.m. 1.1. He has low blood sugars during the night, and he go to sleep usually at 9 p.m. ICR 12, ISS 12 a.m. 25, 9 p.m. 35. Interim history 03/17 Follow-up visit 03/20/18 A1c's office 8.4 he is on Levemir 50 units twice a day, H 60 units twice a day plus sliding scale and ON AVG 30 minute extra, and did not start insulin pump yet to be able to his A1c to be less than 10 and his boyfriend with him at this visit Interim history, 12/15: Followup visit on 12/17/2017 for type 1 diabetes. Blood sugar in the office 12. He is on Basaglar 30-40 units twice a day, Humalog to 20-30 units every meal. His meter in good range lowest 36, highest 354, average 125, number of readings 65 and he is still in the process of an insulin pump and he needs 90 days for look and recommendation. Interim history, 11/17: Followup visit on 11/21/2017 for type 1 diabetes. Meter lowest 24, highest 268. 1.1 per day, average 123, 34 number of readings. Blood sugar in office 88. He is on Basaglar 35 twice a day. Decrease his Humalog to 20 units twice a day, plus the scale. He has his U-500 vial, but did not start insulin pump yet. Lab in 11/17: Kidney function within normal limits. Total cholesterol 201. Triglycerides 323, HDL 38, LDL 98. TSH 1.8, albumin/creatinine 4.6, vitamin D 21. HPI: present with DM2 in 09/2017, A1c results 10.1, blood glucose in the office 157 taking: jail insulin : Basaglar 35 units bid short term insulin: humalog 60 units bid plus ISS? No increased thirst or urination. No indigestion, N/V/D or abd. pain. No extremity weakness. Numbness and tingling YES Compared to the last visit new visit The diet that the patient's following carb count The last eye exam due Frequency of exercise rarely Frequency of monitoring 4 times Hypoglycemia episodes none Blood glucose results are evaluated by recall Kidney function unknown The feet had numbess Cardiovascular review of systems reveals history of none Diabetic education needs one Side effects of medication none compliance to medical management plan good new patient for type 1 diabetes since age 20, is off insulin pump for 7 months due to off insurance, now in 10/17,is on basaglar 35 units twice a day, Humalog 60 units twice a day plus a sliding scale average 70 units twice a day used to be on U- 500 around 20 units 3 times a day which that gave him average 300 units Laexei daily (0.6ml) He is interested to go with insulin pump back with U-500 inside SUBJECTIVE: MEDICATIONS: Current Outpatient Medications Medication Instructions Aspirin Low Dose 81 mg, Oral, Daily atorvastatin (LIPITOR) 80 mg, Oral, Nightly clomiPRAMINE (ANAFRANIL) 25 mg, Oral, Nightly fenofibrate (TRIGLIDE) 160 mg, Oral, Nightly furosemide (LASIX) 40 mg, Daily Gvoke HypoPen 1-Pack 1 mg, Once as needed HumuLIN R 500 UNIT/ML CONCENTRATED injection hydrOXYzine pamoate (VISTARIL) 25 mg, 3 times daily PRN lisinopril 20 mg, Daily metoprolol succinate XL (TOPROL-XL) 50 mg, Oral, 2 times daily (05/11) nabumetone (RELAFEN) 500 mg, Oral, 2 times daily sertraline (ZOLOFT) 50 mg, Oral, Daily sildenafil (VIAGRA) 25 mg, Oral, Daily PRN traZODone (DESYREL) 100 mg, Nightly ALLERGIES: Allergies Allergen Reactions Wound Dressing Adhesive Past Medical History: Diagnosis Date Bilateral leg edema Chest pain, central Chronic neck pain Early satiety Hyperlipidemia, unspecified (CMS/HCC) Hypertension (CMS/HCC) Insomnia, persistent custodial (current) use of insulin (CMS/HCC) MDD (major depressive disorder), recurrent episode, mild (HCC) (CMS/HCC) Premature ejaculation Presence of insulin pump (external) (internal) Tachycardia Type 2 diabetes mellitus with diabetic polyneuropathy, with long-term current use of insulin (CMS/HCC) Type 2 diabetes mellitus with hyperglycemia, with long-term current use of insulin (CMS/HCC) Vitamin D deficiency Wrist pain, chronic, right No past surgical history on file. REVIEW OF SYMPTOMS: 14 POINT OF SYSTEM REVIEWED AND NEGATIVE OBJECTIVE: Constitutional: Afebrile @ home; no weakness or night sweats SKIN: No change in skin color; no itching, rash or lesions; no hair loss; HEENT: No HAs or injury; no dizziness; No difficulty with vision; no eye pain, discharge or lesions; no hearing loss or difficulty; no nasal discharge, NECK: No pain, limitation of motion, lumps or swollen glands RESP: No cough, wheezing or difficulty breathing. No CP with breathing; CARDIO: No CP , SOB or fatigue, No edema, palpitations or dyspnea with exertion GI: No N/V/D or abd. pain; good appetite with no recent change. No heart burn, liver or gallbladder disease; no rectal bleeding or pain : No urinary pain , frequency or odor. MUSCULOSKELETAL: No muscle pain or cramps; no extremity weakness.No joint pain, stiffness, swelling or limitation of movement NEUROLOGY: No H/O seizures, stroke or fainting. No weakness, tremors. Hematology: No bleeding problems or excessive bruising ENDOCRINE: No increase in hunger, thirst or urination; admits compliance to medical management plan Feet: numbness tingling yes , ulcers or skin break no Lab Results Component Value Date HGBA1C 9.0 01/01/2025 HGBA1C 7.6 09/09/2024 Lab Results Component Value Date GLU 160 01/01/2025 GLU 331 (H) 11/18/2024 GLU 110 09/09/2024 03/31/2024 8:46 AM 06/03/2024 9:10 AM 06/11/2024 9:20 AM 09/09/2024 10:41 AM 09/14/2024 8:32 AM 12/16/2024 9:02 AM 01/01/2025 10:03 AM Vitals BMI 46.27 kg/m2 46.67 kg/m2 45.58 kg/m2 44.95 kg/m2 43.7 kg/m2 45.73 kg/m2 47.61 kg/m2 BSA (m2) 2.52 m2 2.53 m2 2.5 m2 2.48 m2 2.45 m2 2.5 m2 2.55 m2 Systolic 138 116 110 126 142 110 Diastolic 84 68 72 74 78 70 Heart Rate 86 66 39 81 89 86 83 SpO2 96 % 95 % 98 % 96 % 95 % 99 % Temp 97.8 F 97.8 F 97 F Resp 16 20 18 18 18 18 Height (in) 5' 7 5' 7 5' 7 5' 7 5' 7 5' 7 5' 7 Weight (lb) 295.4 298 291 287 279 292 304 Visit Report Report Report Report Report Report Report ASSESSMENT AND PLAN: Assessment/Plan Diagnoses and all orders for this visit: Type 1 diabetes mellitus with hyperglycemia (HCC) ([facility]) - POCT glucose manually resulted - POCT glycosylated hemoglobin (Hb A1C) docked device C/o the same settings, advice him to start GLP-1 and to follow with the clinic who dealing with compounded medication due to the cost. Encounter for dietary consultation Vitamin D deficiency Encounter for fitting or adjustment of insulin pump Insulin pump in place Insulin long-term use (CMS/HCC) High risk medication use Using U500 inside the pump. Class 3 severe obesity due to excess calories with serious comorbidity and body mass index (BMI) of 45.0 to 49.9 in adult Diet and exercise reviewed with the patient Follow up in about 3 months (around 04/02/2025). documented in this encounter [facility] 10-28-2024 Note SUBJECTIVE Hossein Zamarripa is a 34 y.o. year old male patient being seen for No chief complaint on file. HPI 10/28/2024: Pt presents for FU office visit PMH of anxiety, HTN, tachycardia. He denies chest pain, palpitations, dizziness, endorses MELÉNDEZ. Past Medical History: Diagnosis Date Hyperlipidemia Hypertension Type 2 diabetes mellitus (CMS/HCC) No past surgical history on file. Patient Active Problem List Diagnosis Type 2 diabetes mellitus (CMS/HCC) Snoring Hypertensive disorder Hyperlipidemia Diabetic neuropathy (CMS/HCC) Neuropathy Sleep disturbances Class 3 severe obesity due to excess calories in adult (CMS/HCC) Sinus tachycardia Annual physical exam Benign essential hypertension Bilateral leg edema Chronic neck pain Dyslipidemia Premature ejaculation Primary insomnia Vitamin D deficiency Body mass index (BMI) 45.0-49.9, adult (CMS/HCC) Erectile dysfunction associated with type 2 diabetes mellitus (CMS/HCC) MDD (major depressive disorder), recurrent episode, moderate (CMS/HCC) Obstructive sleep apnea syndrome Presence of insulin pump (external) (internal) Type 2 diabetes mellitus with hyperglycemia, with long-term current use of insulin (CMS/HCC) 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) family history includes Cancer in his father's brother; Coronary artery disease in his father's brother; Dementia in his maternal grandmother; Diabetes in his father's brother, father's sister, and paternal grandmother; Hypertension in his father, maternal grandfather, maternal grandmother, and mother; Prostate cancer in his maternal grandfather; Valvular heart disease in his father's brother. Social History Tobacco Use Smoking status: Never Smokeless tobacco: Never Substance Use Topics Alcohol use: Not Currently ROS OBJECTIVE Visit Vitals BP 120/80 (BP Location: Left arm, Patient Position: Sitting) Pulse 99 Ht 1.702 m (5' 7 ) Wt 127 kg (281 lb) SpO2 97% BMI 44.01 kg/m??? Smoking Status Never BSA 2.45 m??? Physical Exam Constitutional: No acute distress. Psychiatric: Mental Status: alert and normal affect. Insight: good judgement. Eyes: Lids and Conjunctivae: non-injected and no discharge. Pupils: PERRLA. Neck: Neck: supple and trachea midline. Jugular Veins: normal jugular venous pressure. Lungs: Respiratory Effort: unlabored. Auscultation: no rales or rhonchi and normal breath sounds. Cardiovascular: Rate And Rhythm: regular. Heart Sounds: normal S1 and S2. Systolic Murmur: not heard. Diastolic Murmur: not heard. Extremities: no cyanosis, edema, or peripheral signs of emboli. Peripheral Pulses: Pulses: full and equal in all extremities except if noted. Abdomen: Inspection and Palpation: non distended or tender and soft. Skin: Inspection and Palpation: warm and dry. Allergies Allergies Allergen Reactions Adhesive Tape-Silicones Shellfish Derived Medications Current Outpatient Medications: aspirin 81 mg EC tablet, Take 81 mg by mouth in the morning., Disp: , Rfl: atorvastatin (Lipitor) 40 mg tablet, Take one tablet daily, Disp: 90 tablet, Rfl: 3 cinnamon 500 mg capsule, Take 500 mg by mouth in the morning., Disp: , Rfl: clomiPRAMINE (Anafranil) 25 mg capsule, Take 25 mg by mouth at bedtime., Disp: , Rfl: fenofibrate (Lofibra) 160 mg tablet, Take 160 mg by mouth., Disp: , Rfl: furosemide (Lasix) 40 mg tablet, Take 1 tablet (40 mg) by mouth in the morning., Disp: 90 tablet, Rfl: 3 hydrOXYzine pamoate (Vistaril) 25 mg capsule, Take 25 mg by mouth if needed in the morning, at noon, and at bedtime., Disp: , Rfl: insulin regular, human (HUMULIN R U-500, CONC, INSULIN SUBQ), Inject under the skin. Controlled by pump, Disp: , Rfl: lisinopril 20 mg tablet, Take 1 tablet (20 mg) by mouth in the morning., Disp: 90 tablet, Rfl: 3 nabumetone (Relafen) 500 mg tablet, Take 500 mg by mouth in the morning and at bedtime., Disp: , Rfl: oxyCODONE-acetaminophen (Percocet) 5-325 mg tablet, Take 1 tablet by mouth every 4 (four) hours if needed., Disp: , Rfl: Ozempic 1 mg/dose (4 mg/3 mL) pen injector, INJECT 1mg SUBCUTANEOUSLY ONCE A WEEK, Disp: , Rfl: sertraline (Zoloft) 25 mg tablet, Take 25 mg by mouth in the morning., Disp: , Rfl: sildenafil (Viagra) 25 mg tablet, Take 25 mg by mouth if needed., Disp: , Rfl: traZODone (Desyrel) 100 mg tablet, Take 100 mg by mouth at bedtime., Disp: , Rfl: metoprolol succinate XL (Toprol-XL) 25 mg 24 hr tablet, Take 4 tablets (100 mg) by mouth in the morning. Do not crush or chew., Disp: 120 tablet, Rfl: 11 Recent Labs No visits with results within 6 Month(s) from this visit. Latest known visit with results is: No results found for any previous visit. Imaging and other tests Assessment and Plan #Sinus Tachy Radial pulses today 90 Possible anxiety component anxious, is on pysch medication Reviewed pt's apple watch data resting HR 72, high was 132 -Incr (more content not included)... [facility] 10-28-2024 Note Patient here for 6 m o follow up chest pain, sinus tachycardia, hypertension, and hyperlipidemia. No recent labs/imaging. Says he's only had chest pain a few times since last visit in March 2024. He's also down 14# since then. Review of Systems Constitutional: Positive for diaphoresis and weight loss (14# since March 2024). Cardiovascular: Positive for chest pain and dyspnea on exertion. All other systems reviewed and are negative. [facility] 09-14-2024 History of Presen t illness Narrative Associated Problem(s): 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) Neuropathy unchanged and use percocet PRN. Associated Problem(s): Type 2 diabetes mellitus with hyperglycemia, with long-term current use of insulin (CMS/HCC) BS improved and follow with endo. Associated Problem(s): Primary insomnia Sleeping well with trazodone and continue. Associated Problem(s): MDD (major depressive disorder), recurrent episode, moderate (CMS/HCC) Symptoms tolerable with zoloft and continue. Associated Problem(s): Bilateral leg edema Edema stable and use lasix PRN. Elevate legs PRN. Associated Problem(s): Benign essential hypertension (CMS/HCC) BP controlled and monitor PRN. Images from the original note were not included. Subjective Patient ID: Hossein Zamarripa is a 34 y.o. male who presents for Follow-up (3 m). Follow up HTN, neuropathy, depression, edema, insomnia, and DM. Patient stable. Checking BP PRN and typically controlled. BP normal today. Taking medication daily and tolerating without side effects. Neuropathy unchanged. Continued pain and burning in feet. Symptoms worse with walking and standing. Started walking in evenings and increased pain. Using percocet PRN and helps when needed. Depression stable with zoloft. Not as down or sad and feels happier. Occasional symptoms but mild and functioning well. No longer in counseling. Edema controlled with medication. Mild swelling at end of day and if on feet a lot. Edema improved in am and with elevation. Sleeping well with trazodone PRN. Able to fall asleep and stay asleep. Wakes up rested. Following with endo and last A1C 7.6. Reports BS improved and using insulin pump. Review of Systems Constitutional: Negative for fatigue. Respiratory: Negative for cough, shortness of breath and wheezing. Cardiovascular: Negative for chest pain and palpitations. Gastrointestinal: Negative for abdominal pain, diarrhea, nausea and vomiting. Genitourinary: Negative for dysuria. Objective Physical Exam Constitutional: General: He is not in acute distress. Appearance: Normal appearance. HENT: Head: Normocephalic. Right Ear: Tympanic membrane and ear canal normal. Left Ear: Tympanic membrane and ear canal normal. Eyes: Extraocular Movements: Extraocular movements intact. Pupils: Pupils are equal, round, and reactive to light. Cardiovascular: Rate and Rhythm: Normal rate and regular rhythm. Heart sounds: No murmur heard. No friction rub. No gallop. Pulmonary: Breath sounds: Normal breath sounds. No wheezing, rhonchi or rales. Abdominal: General: Bowel sounds are normal. There is no distension. Palpations: Abdomen is soft. Tenderness: There is no abdominal tenderness. There is no guarding or rebound. Musculoskeletal: Left lower leg: No edema. Neurological: Mental Status: He is alert. Assessment/Plan Problem List Items Addressed This Visit Benign essential hypertension (CMS/HCC) - Primary BP controlled and monitor PRN. Bilateral leg edema Edema stable and use lasix PRN. Elevate legs PRN. Type 2 diabetes mellitus with hyperglycemia, with long-term current use of insulin (CMS/HCC) BS improved and follow with endo. 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) Neuropathy unchanged and use percocet PRN. Primary insomnia Sleeping well with trazodone and continue. MDD (major depressive disorder), recurrent episode, moderate (CMS/HCC) Symptoms tolerable with zoloft and continue. documented in this encounter [facility] 09-09-2024 History of Presen t illness Narrative Hossein Zamarripa is a 34 y.o. male No ref. provider found presents with chief complaint of Diabetes and Follow-up HPI: Interim History: 08/2024 Follow-up visit 09/09/2024 for type 1 diabetes, a1C 7.6 with PCP office, BG 110, units u-500 , basal 12 am 0.35, 8 am 1.2, 3 pm 1.3, 7:30 pm 1.05, ICR 7, ISS 20. Interim History: 05/2024 Follow-up visit 06/03/2024 for type 1 diabetes, a1C 8 with PCP office, BG 125 , units u-500 , basal 12 am 0.35, 8 am 1.2, 3 pm 1.3, 7:30 pm 1.05, ICR 7, ISS 20. AVG 205, CGM 0-67-23 %, 55/45%. Interim History: 02/2024 Follow-up visit 03/11/2024 for type 1 diabetes, a1C 8.5 with PCP office, BG 137 , units u-500 , basal 12 am 0.35, 8 am 1.2, 3 pm 1.3, 7:30 pm 1.05, ICR 7, ISS 20. AVG 205, CGM 0-70-30 %, 47/53%. Interim History: 11/2023 Follow-up visit 12/04/2023 for type 1 diabetes, a1C 8.3 with PCP office, BG 121 , units u-500 , basal 12 am 0.35, 8 am 1.2, 3 pm 1.3, 7:30 pm 1.05, ICR 7, ISS 20. AVG 197, CGM 1-49-50 %, 41-59 %. Interim History: 05/2023 Follow-up visit 06/12/2023 for type 1 diabetes, a1C 8.7 with PCP office, BG 148 , units u-500 , basal 12 am 0.35, 8 am 1.2, 3 pm 1.3, 7:30 pm 1.05, ICR 6, ISS 20. AVG 194, CGM 0-50-50%, TDD 59, 65/35%. Interim History: 02/2023 Follow-up visit 03/06/2023 for type 1 diabetes, a1C 8.9 with PCP office, BG 198 , units u-500 , basal 12 am 0.35, 8 am 1.2, 3 pm 1.3, 7:30 pm 1.05, ICR 7, ISS 25-35. AVG 209, 43/57%, TDD 47 Interim History: 11/2022 Follow-up visit 12/05/2022 for type 1 diabetes, a1C 8.7 with PCP office , BG 1123 , units u-500 , basal 12 am 0.35, 8 am 1.2, 3 pm 1.3, 7:30 pm 1.05, ICR 8, ISS 25-35. Interim History: 07/2022 Follow-up visit 08/28/2022 for type 1 diabetes, a1C 8.1 with PCP office , BG 172 , units u-500 , basal 12 am 0.35, 8 am 1.2, 3 pm 1.3, 7:30 pm 1.05, ICR 8, ISS 25-35. got a new pump Interim History: 05/2022 Follow-up visit 06/19/2022 for type 1 diabetes, a1C 8.7 , BG 159 , and average 44 units u-500 , basal 12 am 0.35, 8 am 1.2, 3 pm 1.3, 7:30 pm 1.05, ICR 8, ISS 25-35. off pump for 4 days and using by syringes 50-75 actual units till get a new pump Interim History: 12/2021 Follow-up visit 01/18/2022 for type 1 diabetes, a1C 7.4 , BG 143 , and average 41 units u-500 , . basal 12 am 0.35, 8 am 1.2,, 3 pm 1.3, 7:30 pm 1.05, ICR 8, ISS 25-35. Interim History: 09/2021 Follow-up visit 10/13/2021 for type 1 diabetes, a1C 8.6, BG 221 , and average 43 units u-500 , . basal 12 am 0.3, 8 am 0.9, 3 pm 1.15, 7:30 pm 0.9, ICR 8, ISS 25-35. eye showed retinopathy Interim History: 06/2021 Follow-up visit for type 1 diabetes, a1C 7.6, BG 161 , and average 37 units u-500 , . basal 12 am 0.3, 8 am 0.9, 3 pm 1.15, 7:30 pm 0.9, ICR 8, ISS 25-35 Interim History: 03/2021 Follow-up visit for type 1 diabetes. unable to do A1c in the office, and blood sugar is 174 , and average 36 units u-500 , . basal 12 am 0.3, 8 am 0.9, 3 pm 1.15, 7:30 pm 0.9, ICR 8, ISS 25-35 Interim History: 12/2020 Follow-up visit for type 1 diabetes. A1c in the office 88.0 and blood sugar is 146 . CGM interpretation not done, for his insulin pump is 100% manual, and average 38 units u-500 , . basal 12 am 0.3, 8 am 0.9, 3 pm 1.15, 7:30 pm 0.9, ICR 8, ISS 25-35 Interim History: 09/2020 Follow-up visit for type 1 diabetes. A1c in the office 8.6 and blood sugar is 257 . CGM interpretation not done, for his insulin pump is 100% manual, and [id number], CGM 1-48-51%. basal 12 am 0.3, 8 am 0.9, 3 pm 1.15, 7:30 pm 0.9, ICR 1:10, ISS 25-35 Interim History: 06/2020. Follow-up visit 07/08/2020 for type 1 diabetes. A1c in the office 7.9 and blood sugar is 204 . CGM interpretation not done, for his insulin pump is 100% manual, and [id number], 43 bolus, 57 basal Interim History: 03/2020. Follow-up visit 04/07/2020 for type 1 diabetes. A1c in the office 9.4 and blood sugar is . He is still the same since we saw him December 2019 and CGM interpretation for his insulin pump is 100% manual, 84 sensor mode, and average 159, 36 bolus, 60 basal, low range, 65 in good range, and 32 in high range. Interim History: 12/2019 Follow-up visit 01/06/20 for type 1 diabetes. He has an insulin pump, using U-500 inside. 12 AM 0.3; 8 AM 0.9; 3 PM 1.1; 7:30 PM 0.9. ICR 1:10; ISS 1:25; 9 PM 1:35 and his blood sugar he says is okay. No severe lows. We saw him today with telemedicine through [employer]. Interim History: 12/2019 Follow-up visit 01/06/20 for type 1 diabetes. He has an insulin pump, using U-500 inside. 12 AM 0.3; 8 AM 0.9; 3 PM 1.1; 7:30 PM 0.9. ICR 1:10; ISS 1:25; 9 PM 1:35 and his blood sugar he says is okay. No severe lows. We saw him today with telemedicine through [employer]. Interim history 08/2019. Followup visit on 09/01/2019 for type 1 diabetes. A1c in the office 8.3, blood sugars 218 and CGM interpretation 1% low range, 65 in good range, 34 in high range, 100% manual mode, sensor reading 84%, average 159, plus-minus 47. Basal rate insulin pump, he is using U-500 , 12 a.m. 0.3, 8 a.m. 0.9, 1 p.m. 1.1, 7:30 p.m. 0.6. ICR 1:10 and ISS at 12 a.m. 25, 8 a.m. 35. Interim history: 04/2019 Follow-up visit 05/12/19 for type 1 diabetes. A1c in the office is 8.5, blood sugar 187. CGM interpretation: 2% low range, 70% in good range, 26% in high range and 2% in very high range. He is on manual mode since average is 153 +/- 46 and are 88%. Pump readings: total daily dose 39, basal 36, bolus 64, carb 186 and active insulin 4 hours. Basal rate: 12 AM 0.3; 8 AM 0.9; 3 PM 1.1; 7:30 PM 0.6; ICR 1:10; ISS: 12 AM 25; 9 PM 35 and that is using U-500 inside the pump. Interim history: 01/2019 Follow-up visit 02/10/19. A1c in the office 8.3, blood sugars 181. CGM interpretation: 1% low range, 50% good range, 36% in high range and 13% in severe high range. Average blood sugar is 183. Total daily dose 28 and 50-50. Pump interpretation: 2% in low range, 85% in good range, 13% high range. Total daily dose 34 units and 62 bolus, 38 basal and change every four days and average blood sugar is 133. Basal rate 12 AM 0.3, 8 AM 0.9, 3 PM 1.1, 7:30 PM 0.6. ICR 12 AM 1:[address], ISS 12 AM 25, 9 PM 35 and active insulin 6 hours. Interim History 10/2018: Followup visit on 11/04/2018 for type 1 diabetes. A1c in the office is 7.9, blood sugar 109. He has CGM 66%, average blood sugar 146, 2.2 per day. Total daily dose 31. He is using U-500, 55% basal, 45 bolus. He has 2% in the low range, 77% in good range, 19% in high range and 2% in the higher range. Basal rate 12 a.m. 0.3, 8 a.m. 0.9, 3 p.m. 1.1, 7:30 p.m. 0.6. ICR 1:12, ISS between 25 to 35. Interim History: 06/17 Followup visit on 06/16/18 for type 1 diabetes. A1c in the office 7.2, CGM interpretation was meter's lowest 29, highest 224, average 126. Pump settings 12 a.m. 0.4, 8 a.m. 0.9, 3 p.m. 1.1. He has low blood sugars during the night, and he go to sleep usually at 9 p.m. ICR 12, ISS 12 a.m. 25, 9 p.m. 35. Interim history 03/17 Follow-up visit 03/20/18 A1c's office 8.4 he is on Levemir 50 units twice a day, H 60 units twice a day plus sliding scale and ON AVG 30 minute extra, and did not start insulin pump yet to be able to his A1c to be less than 10 and his boyfriend with him at this visit Interim history, 12/15: Followup visit on 12/17/2017 for type 1 diabetes. Blood sugar in the office 12. He is on Basaglar 30-40 units twice a day, Humalog to 20-30 units every meal. His meter in good range lowest 36, highest 354, average 125, number of readings 65 and he is still in the process of an insulin pump and he needs 90 days for look and recommendation. Interim history, 11/17: Followup visit on 11/21/2017 for type 1 diabetes. Meter lowest 24, highest 268. 1.1 per day, average 123, 34 number of readings. Blood sugar in office 88. He is on Basaglar 35 twice a day. Decrease his Humalog to 20 units twice a day, plus the scale. He has his U-500 vial, but did not start insulin pump yet. Lab in 11/17: Kidney function within normal limits. Total cholesterol 201. Triglycerides 323, HDL 38, LDL 98. TSH 1.8, albumin/creatinine 4.6, vitamin D 21. HPI: present with DM2 in 09/2017, A1c results 10.1, blood glucose in the office 157 taking: jail insulin : Basaglar 35 units bid short term insulin: humalog 60 units bid plus ISS? No increased thirst or urination. No indigestion, N/V/D or abd. pain. No extremity weakness. Numbness and tingling YES Compared to the last visit new visit The diet that the patient's following carb count The last eye exam due Frequency of exercise rarely Frequency of monitoring 4 times Hypoglycemia episodes none Blood glucose results are evaluated by recall Kidney function unknown The feet had numbess Cardiovascular review of systems reveals history of none Diabetic education needs one Side effects of medication none compliance to medical management plan good new patient for type 1 diabetes since age 20, is off insulin pump for 7 months due to off insurance, now in 10/17,is on basaglar 35 units twice a day, Humalog 60 units twice a day plus a sliding scale average 70 units twice a day used to be on U- 500 around 20 units 3 times a day which that gave him average 300 units Alexei daily (0.6ml) He is interested to go with insulin pump back with U-500 inside SUBJECTIVE: MEDICATIONS: Current Outpatient Medications Medication Instructions aspirin 81 mg, Oral, Daily atorvastatin (LIPITOR) 80 mg, Oral, Nightly clomiPRAMINE (ANAFRANIL) 25 mg, Oral, Nightly fenofibrate (TRIGLIDE) 160 mg, Oral, Nightly furosemide (LASIX) 40 mg, Daily Gvoke HypoPen 1-Pack 1 mg, Once as needed HumuLIN R 500 UNIT/ML CONCENTRATED injection hydrOXYzine pamoate (VISTARIL) 25 mg, 3 times daily PRN lisinopril 20 mg, Daily metoprolol succinate XL (TOPROL-XL) 50 mg, Oral, 2 times daily (05/11) nabumetone (RELAFEN) 500 mg, Oral, 2 times daily Ozempic (2 MG/DOSE) 2 mg, Subcutaneous, Weekly sertraline (ZOLOFT) 25 mg, Oral, Daily sildenafil (VIAGRA) 25 mg, Oral, Daily PRN traZODone (DESYREL) 100 mg, Nightly ALLERGIES: Allergies Allergen Reactions Shellfish-Derived Products Wound Dressing Adhesive Past Medical History: Diagnosis Date Bilateral leg edema Chest pain, central Chronic neck pain Early satiety Hyperlipidemia, unspecified (CMS/HCC) Hypertension (CMS/HCC) 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) Premature ejaculation Presence of insulin pump (external) (internal) Tachycardia Type 2 diabetes mellitus with diabetic polyneuropathy, with long-term current use of insulin ([facility]/HCC) Type 2 diabetes mellitus with hyperglycemia, with long-term current use of insulin ([facility]) Vitamin D deficiency Wrist pain, chronic, right No past surgical history on file. REVIEW OF SYMPTOMS: 14 POINT OF SYSTEM REVIEWED AND NEGATIVE OBJECTIVE: Constitutional: Afebrile @ home; no weakness or night sweats SKIN: No change in skin color; no itching, rash or lesions; no hair loss; HEENT: No HAs or injury; no dizziness; No difficulty with vision; no eye pain, discharge or lesions; no hearing loss or difficulty; no nasal discharge, NECK: No pain, limitation of motion, lumps or swollen glands RESP: No cough, wheezing or difficulty breathing. No CP with breathing; CARDIO: No CP , SOB or fatigue, No edema, palpitations or dyspnea with exertion GI: No N/V/D or abd. pain; good appetite with no recent change. No heart burn, liver or gallbladder disease; no rectal bleeding or pain : No urinary pain , frequency or odor. MUSCULOSKELETAL: No muscle pain or cramps; no extremity weakness.No joint pain, stiffness, swelling or limitation of movement NEUROLOGY: No H/O seizures, stroke or fainting. No weakness, tremors. Hematology: No bleeding problems or excessive bruising ENDOCRINE: No increase in hunger, thirst or urination; admits compliance to medical management plan Feet: numbness tingling yes , ulcers or skin break no Lab Results Component Value Date HGBA1C 7.6 09/09/2024 Lab Results Component Value Date GLU 110 09/09/2024 GLU 381 (H) 12/25/2023 Visit Vitals BP 110/72 Pulse 81 Resp 18 Ht 5' 7 Wt 287 lb BMI 44.95 kg/m Smoking Status Never BSA 2.48 m ASSESSMENT AND PLAN: Assessment/Plan Diagnoses and all orders for this visit: Type 1 diabetes mellitus with hyperglycemia (HCC) ([facility]) - POCT glucose manually resulted - POCT glycosylated hemoglobin (Hb A1C) docked device - C-peptide; Future - Vitamin D 25 hydroxy Total; Future - Microalbumin / creatinine urine ratio; Future - Lipid panel; Future - Renal function panel; Future We will continue with the same settings Encounter for dietary consultation Diet and exercise reviewed with the patient Vitamin D deficiency Encounter for fitting or adjustment of insulin pump Insulin pump in place Insulin long-term use ([facility]) High risk medication use Class 3 severe obesity due to excess calories with serious comorbidity and body mass index (BMI) of 40.0 to 44.9 in adult ([facility]) Follow up in about 3 months (around 12/08/2024). documented in this encounter [facility] 06-11-2024 History of Presen t illness Narrative Associated Problem(s): Erectile dysfunction associated with type 2 diabetes mellitus ([facility]) Try viagra. Associated Problem(s): Primary insomnia Sleeping well with trazodone and continue. Associated Problem(s): MDD (major depressive disorder), recurrent episode, moderate (HCC) ([facility]) Recently admitted and doing well with zoloft. Continue counseling. Images from the original note were not included. Subjective Patient ID: Hossein Zamarripa is a 33 y.o. male who presents for Follow-up ( /[facility] [place] [place] hospital f/up). Hospital follow up from 05/25-05/28 for depression with SI. Severe stress and not handling well. Patient with legal issues. Developed severe depression and wanted to kill self. Planned on shooting self with one of his guns and presented to ER. Admitted to inpatient psychiatry and started counseling. Started zoloft and improved. Doing well since home. Taking zoloft daily. Not as down or sad. Not stressed out or overwhelmed. No further SI. Sleeping well with trazodone. C/o ED. Problems getting erection and often lose quickly. Affecting sex life and requests medication. Review of Systems Constitutional: Negative for fatigue. Respiratory: Negative for cough, shortness of breath and wheezing. Cardiovascular: Negative for chest pain and palpitations. Gastrointestinal: Negative for abdominal pain, diarrhea, nausea and vomiting. Genitourinary: Negative for dysuria. Objective Physical Exam Constitutional: General: He is not in acute distress. Appearance: Normal appearance. HENT: Head: Normocephalic. Right Ear: Tympanic membrane and ear canal normal. Left Ear: Tympanic membrane and ear canal normal. Eyes: Extraocular Movements: Extraocular movements intact. Pupils: Pupils are equal, round, and reactive to light. Cardiovascular: Rate and Rhythm: Normal rate and regular rhythm. Heart sounds: No murmur heard. No friction rub. No gallop. Pulmonary: Breath sounds: Normal breath sounds. No wheezing, rhonchi or rales. Abdominal: General: Bowel sounds are normal. There is no distension. Palpations: Abdomen is soft. Tenderness: There is no abdominal tenderness. There is no guarding or rebound. Musculoskeletal: Left lower leg: No edema. Neurological: Mental Status: He is alert. Assessment/Plan Problem List Items Addressed This Visit Type 2 diabetes mellitus with hyperglycemia, with long-term current use of insulin ([facility]) Relevant Medications Semaglutide, 2 MG/DOSE, (Ozempic, 2 MG/DOSE,) 8 MG/3ML solution pen-injector Primary insomnia Sleeping well with trazodone and continue. MDD (major depressive disorder), recurrent episode, moderate (HCC) (CMS/[facility]) - Primary Recently admitted and doing well with zoloft. Continue counseling. Erectile dysfunction associated with type 2 diabetes mellitus ([facility]) Try viagra. Relevant Medications sildenafil (Viagra) 25 MG tablet documented in this encounter [facility] 05-28-2024 Discharge summary Note Date/Time May 28, 2024 9:49am [facility] [address] [place] [address] Discharge Summary Signed Patient: Hossein Zamarripa MR #: [id number] : 1990 Acct:[id number] Age/Sex: 33 / M Adm Date: 4 Loc: Room: [address] [place] [address]: Dustin Painter MD Copies to: MD Loy Torrez MD~ Providers Date of Discharge: 05/28/24 Discharging Provider: Dustin Painter Primary Care Provider: Loy Tan Consults: 05/25/24 16:55 Consult to Adult Hospitalist Routine Comment: Consulting Provider: Community Hospitalist (Adult) Reason For Exam: insulin management Has Provider Been Notified: Yes Date of Notification: 05/25/24 Time of Notification: 16:55 Discharge Diagnosis (1) Hyperlipidemia: (2) Morbid obesity with BMI of 40.0-44.9, adult: (3) HTN (hypertension): (4) Diabetes: Final Diagnosis Final Discharge Diagnosis: MDD Summary Hospital Course Hospital course: Mr. Zamarripa is a 33 year old male with a reported history of suicidal ideation, hyperlipidemia, hypertension, diabetes, and neuropathy?who presents for inpatient treatment due to?suicidal ideation. Reportedly, patient presented to the ER stating that he was going to shoot himself with one of his guns. Patient was personally seen by me on the day of the encounter. I reviewed the history and performed the marcos elements of the assessment. I formulated the planof care and confirmed this with the medical student as noted below At the time of the interview, the patient stated that he was feeling good after being able to speak with care team members on 1 S. The patient states thathe has a history of depression and anxiety and that his suicidal ideation was the result of him having family troubles . When asked to elaborate on he described the situation as a legal buildup but was not comfortable with discussing details further. His suicidal ideation did include a plan according to the patient. The patient stated that the past night he slept well and has an appetite which is good for him because he is on Ozempic and that is not always the case. At present he does not have any suicidal ideation or homicidal ideation. He denies any hallucinations. The patient states that he is unsure if he will purse pharmacologic treatment but would like to look into therapy as a means to help have productive conversations in the future.? Course of Treatment: The patient was familiar with the mental health therapy services available to him while on the unit and was encouraged to participate. We discussed medicationrisks, benefits, and indications in detail. He was open to trying psychopharmacological treatment. His medication regimen was continued and Zoloft was started. He felt that his symptoms improved on the current medication regimen, stating that his depressive symptoms were reduced and he became less anxious. His thought process was transparent on the exam. He described his mood as more motivated. He has been compliant with treatment and reported no side effects. His sleep and appetite were okay. The patient was attending groups and described them as helpful in building coping skills. He denied any access to firearms or lethal weapons. His symptoms improved, and his affect became brighter. He reported feeling more focused and clear minded . He was social with peers on the unit and indicated that he learned a lot to improve his mental health. Hefelt better than before coming to the hospital and hopeful about his future. He described both his depression and anxiety as mild, rating both 0 out of 10, with ten being the worst. He said his mental health symptoms are not interferingwith his ability to function. Staff noted improvement in his symptoms as documented in nursing. He has been denying SI/HI or AVH to multiple members of the treatment team. He did not exhibit any disorganized behavior nor appeared erlin experiencing auditory hallucinations or expressing delusions. He did not showany behavior concerning eriberto. He was much more insightful compared to the time of admission. He understands the importance of outpatient therapy to ensure the stability of symptoms. He denied suicidal or homicidal ideation and verbalized the intent to notify the staff if he has such thoughts. No suicidal or self-injurious behaviors occurred during inpatient treatment. Mr. Zamarripa said he will utilize resources, such as calling the hotline if he has any SI/HI. He learned how to stay positive and manage his stress more healthily. I explained to the patient that hospital discharge does not mean medical care ends there. He needs consistent outpatient psychiatric follow-up, cognitive behavioral therapy, and PCP visits to ensure the stability of symptoms. His three wishes include maintaining better health, keeping a positive outlook in life, and learning from my mistakes. Patient's illness, medication side effects, benefits and risks were reviewed with the patient prior to discharge. The patient voiced understanding of their diagnosis, the medications recommended along with the importance of medication compliance. The patient was counseled not to stop medications without the supervision of a psychiatrist. 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 The patient was counseled that if there was an increase in mental health issues, depression, anxiety, medication side effects, self harm or thoughts of harm to others, the patient was not to harm them self or stop treatment, but to call [facility] [employer] or come to the nearest emergency room. The patient also received information regarding advancedmental and medical health directives during this hospitalization to discuss their outpatient provider. The plan was discussed with the patient, the nurses and the social work department. The patient voiced agreement with the plan. Discharge disposition: Home with , coordinated by case management Safe discharge Planning: With the cessation of all suicidal ideation, improvements in mood, and cessationof any psychotic process, aftercare plans were solidified. The patient was able to formulate a believable safety plan. Discharge plans were discussed with the patient, his family, and the treatment team. All agreed with the discharge plan. On the day of discharge, he was evaluated and had no complaints. He denied any SI/HI. He felt hopeful and motivated and agreed to follow up with outpatient treatment as arranged by case management. Factors to be considered are the chronicity and severity of the symptoms and signs, associated comorbidity, and differential diagnosis-motivation to get in treatment, response to treatment, adherence to treatment recommendations, and using skills. The patient's verbal consent was provided. Suicide risk assessment: A thorough review of protective and risk factors was conducted during this admission. I discussed with the patient the following recommendations that would help reduce suicide, which include limiting the number of pills to a 14-day supply with one refill at the time of discharge to avoid potential overdose, involving family members in his care, consistent outpatient follow-up preferably within seven days of release, and his desire to live. He reported a good therapeutic alliance, good response to medication management and therapy, availability of local mental health services and willingness to follow up, lack of suicidal ideation, behavior, intent or plan, lack of impulsivity, agitation, or psychosis. The patient is future-oriented andunderstands the importance of outpatient follow-up. He noted a better ability tomanage his emotions and contract for safety. The presence of positive factors like family and yaquelin, lack of access to firearms, and desire to continue his treatment is consistent with a safe discharge plan. Psychiatric experts agree that it is impossible to predict suicide and violence.This is not something we can control or predict. Given the chronic risk of suicide, we discussed a plan to help him with long-term safety. The patient is not suicidal or psychotic now. To help decrease his suicide and violence risk, as best I can, I am referring him for outpatient treatment, including but not limited to medication management for long-term follow-up to have somewhere to goand someone to manage him as symptoms and stressors develop. This is the best way to keep him alive. So, we discussed a crisis plan for future suicidality: atthe first sign of distress, he will call the hotline; if this is not sufficient,he will call 911, then call family members or friends; ultimately, he will come to the ER. Violence Risk Assessment: Chronic: Gender Modifiable: good response to treatment, good therapeutic alliance, availability of local mental health services and willingness to follow up, lack of homicidal ideation (intent or plan) on the day of discharge and during hospitalization, lack of substance abuse, future oriented. No history of recent violence reported. Furthermore, No access to lethal means as currently have no weapons. No aggressive behavior during hospitalization. Has been social with peers on the unit and has been attending groups. Current Violence Risk Assessment: Low acute risk given known chronic and modifiable risk factors. Patient did not meet criteria for probate and his behavior has been overall appropriate on the unit. He has denied homicidal thoughts and has not exhibited any aggressive behavior. He is not an acute risk to himself or others evidencedby subjective and objective data during his hospitalization. MSE: Orientation: Alert and oriented to person, place, and time. Appearance/Behavior: Fair grooming and hygiene, calm, cooperative, engaged in the interview. Good eye contact. Normal psychomotor activity. Speech: regular rate, rhythm, volume, and tone. Non pressured. Knowledge: Appropriate for age and level of education Mood: okay Affect: reactive, mood-congruent Thought process: linear, logical, and goal-oriented Thought content: No SI/HI. No AVH. No delusions. He does not appear to be responding to internal stimuli. Concentration: Grossly intact based on track during the interview Associations: No loosening of associations Memory: Able to recall recent and remote historical information Insight: Fair, able to appreciate current symptoms and need for outpatient treatment Judgment: fair, agreed to follow treatment recommendations. Safety: The patient is not acutely psychotic, suicidal or homicidal and can continue treatment on an outpatient basis. He was made aware of the 22/04 emergency services of the crisis center and was advised to call 911 or go to the nearest ER in case of a crisis ( (including having thoughts of harming himself or others). Typical short- and long-term side effects of the proposed medication regimen, including contraindications and clinically significant interactions, were discussed with the patient. Side effects include but not limited to sedation, overdose, rash, movement disorders (TD, EPS), weight gain, and appetite changesand advised the patient not to drive or drink while taking these meds. Patient should reach out to medical provider if any of these side effects occur. Using drugs can increase risk of . We also discussed risk of overdose with this current med regimen. Patient understands that it is impossible to guarante an outcome with medications. Patient indicates an understanding that benefits outweigh the risks. Continue supportive therapy with some CBT techniques. Time spent discussing smoking cessation with patient: more than 10 minutes Condition Condition at Discharge: Stable Status at Discharge Functional status at discharge: independent ambulation Time Spent with Patient Time spent providing/coordinating discharge services (# min): 92 Discharge Plan Discharge Plan Patient Disposition: Home Activity: No Activity Restriction Diet: Regular Additional Instructions: Important Contact Information You can call [facility] at [phone] any time day or night if you have emergent questions or question regarding discharge instructions. If at any time you are feeling an increase inyour psychiatric symptoms, call your physician or behavioral healthcare provider. If any time you have thoughts of harming yourself or others contact one of the following: Call (available 22/04) Crisis Text Line (available 22/04) text [facility] to [phone] [facility] (available 8 a.m. Midnight) call [phone] ([phone]) Instructions: Know your Meds Prescriptions: New sertraline 25 mg Tablet 25 mg PO QAM 15 Days Qty: 15 2RF trazodone 50 mg Tablet 50 mg PO QHS PRN (Reason: Insomnia) 15 Days Qty: 15 1RF Continued furosemide 40 mg tablet 40 mg PO .AM DAILY atorvastatin 40 mg tablet 40 mg PO DAILY metoprolol succinate 50 mg tablet extended release 24 hr 50 mg PO .AM DAILY lisinopril 20 mg tablet 20 mg PO .AM Daily aspirin 81 mg tablet,delayed release (DR/EC) 81 mg PO DAILY Humulin R U-500 (Conc) Insulin 500 unit/mL solution 500 unit subcut .before meals clomipramine 25 mg capsule 25 mg PO DAILY nabumetone 500 mg tablet 500 mg PO BID Ozempic 1 mg/dose (4 mg/3 mL) pen injector 1 mg SUBCUT .once weekly Ozempic 0.25 mg or 0.5 mg (2 mg/3 mL) pen injector 0.25 mg SUBCUT .once weekly bilberry (vaccinium myrtillus) 500 mg capsule 500 mg PO DAILY cinnamon bark [Cinnamon] 500 mg capsule 500 mg PO DAILY fenugreek seed 610 mg capsule 610 mg PO .AM DAILY turmeric 400 mg capsule 400 mg PO .AM DAILY No Action fenofibrate 160 mg tablet 160 mg PO HS garlic 345 mg capsule 1 mg PO DAILY Follow Up: [facility] - [facility] [Outside] - 05/29/24 (A mattress spring encaser will call you on Saturday05/29/24 between 8:00am and 4:00pm to schedule your follow up appointments. ) Loy Tan MD [Primary Care Provider] - (Contact your PCP with medical needs. ) Exam Physical Exam Vital Signs: Temp Pulse Resp BP Pulse Ox O2 Del Method 97.7 F 76 16 132/82 97 Room Air 05/28/24 07:30 05/28/24 07:30 05/28/24 07:30 05/28/24 07:30 05/28/24 07:30 05/28/24 07:30 Diagnostic Studies Completed and Pending Studies Labs on day of discharge: 05/28/24 06:23: POC Glucose 272, POC Glucose Comment Glu2: cleaned meter 05/28/24 01:55: POC Glucose 301, POC Glucose Comment Glu2: cleaned meter 05/27/24 20:19: POC Glucose 242, POC Glucose Comment Glu2: cleaned meter 05/27/24 16:25: POC Glucose 295, POC Glucose Comment Glu2: cleaned meter 05/27/24 14:30: POC Glucose 348, POC Glucose Comment Glu2: cleaned meter 05/27/24 11:33: POC Glucose 321, POC Glucose Comment Glu2: cleaned meter Documented By: Dustin Painter MD [id number] Signed By: <Electronically signed by Dustin Painter MD> 05/28/24 0949 [facility] Work Phone: 1(100) 486-814908-29-2024 Progress note Author Dustin allen [facility] May 28, 2024 6:44am Note Date/Time May 27, 2024 10 :28am [facility] [address] [place] [address] Psychiatry Progress Note Signed Patient: Hossein Zamarripa MR #: [id number] : 1990 Acct:[id number] Age/Sex: 33 / M Adm Date: 4 Loc: Room: [address] [place] [address] Type : ADM IN Attending Dr: Dustin Painter MD Copies to: ~ Date of Service: 05/27/2024 Subjective Subjective Narrative: Mr. Zamarripa is a 33 year old male on day 2 of hospitalization for suicidal ideation I interviewed the patient at breakfast this morning and the patient described his mood as perfect . He was very pleasant to talk to and says he is doing well. His appetite is good and he slept well. The patient is tolerating his medications and attending group sessions. The patient states he is ready to go home but is waiting for release. He denies suicidal and homicidal ideation. He denies having any hallucinations. Patient was personally seen by me on the day of the encounter. I reviewed the history and performed the marcos elements of the assessment. I formulated the planof care and confirmed this with the medical student as noted below MSE Appearance: grossly normal. Fair grooming and hygiene, calm, cooperative, engaged in the interview. Good eye contact. Normal psychomotor activity. Mental Status: mental status grossly normal Mood: perfect Affect: mood-congruent affect Speech and Movement: speech and movement normal and speech clear. Regular rate, rhythm, volume, and tone. Non pressured. Attitude: cooperative, patient is pleasant to talk to Thought Process: normal linear, logical, and goal-oriented Thought Content: Denies paranoid or delusional thoughts. Denied hallucinations, no homicidality and no suicidality. Does not appear to be responding to internalstimuli. Insight: Good Judgment: Good Exam Physical Exam Vital Signs: Temp Pulse Resp BP Pulse Ox O2 Del Method 98.1 F 75 18 121/80 100 Room Air 05/27/24 07:30 05/27/24 07:30 05/27/24 07:30 05/27/24 07:30 05/27/24 07:30 05/27/24 07:30 Objective Labs Labs: Abnormal Labs 05/25/24 05/26/24 12:30 07:29 Hemoglobin A1c 8.6 H 25-OH Vitamin D Total 15.6 L Assessment/Plan Assessment/Plan (1) Hyperlipidemia: (2) Morbid obesity with BMI of 40.0-44.9, adult: (3) HTN (hypertension): (4) Diabetes: Plan Plan: Patient presenting due to suicidal ideation -Continue Sertraline 25 mg QAM -Continue insulin regimen per IM consult recs -Continue medications for chronic medical conditions -Continue to monitor mental status -Monitor suicidal behaviors for safety of self -Encourage medication adherence. Risks, benefits, and alternatives of treatment explained -Recommend?attending groups and psychoeducation for building coping skills. -Risks, benefits and indications of medications were discussed with the patient.? -Involve friends/family members to coordinate care and ensure appropriate outpatient appointments are scheduled prior to discharge. Documented By: Dustin Painter MD [id number] Signed By: <Electronically signed by Dustin Painter MD> 05/28/24 0644 [facility] Work Phone: 1(909) 739-669708-28-2024 History and physical note Author Dustin allen [facility] May 27, 2024 6:45am Note Date/Time May 26, 2024 3: 08pm [facility] [address] [place] [address] Psychiatry H&P Signed Patient: Hossein Zamarripa MR #: [id number] : 1990 Acct:[id number] Age/Sex: 33 / M Adm Date: 4 Loc: Room: [address] [place] [address] Type: ADM IN Attending Dr: Dustin Painter MD Copies to: MD Loy Torrez MD~ Date of Service: 05/26/2024 HPI History of Present Illness History of present illness: Mr. Zamarripa is a 33 year old male with a reported history of suicidal ideation, hyperlipidemia, hypertension, diabetes, and neuropathy?who presents for inpatient treatment due to?suicidal ideation. Reportedly, patient presented to the ER stating that he was going to shoot himself with one of his guns. Patient was personally seen by me on the day of the encounter. I reviewed the history and performed the marcos elements of the assessment. I formulated the planof care and confirmed this with the medical student as noted below At the time of the interview, the patient stated that he was feeling good after being able to speak with care team members on 1 S. The patient states thathe has a history of depression and anxiety and that his suicidal ideation was the result of him having family troubles . When asked to elaborate on he described the situation as a legal buildup but was not comfortable with discussing details further. His suicidal ideation did include a plan according to the patient. The patient stated that the past night he slept well and has an appetite which is good for him because he is on Ozempic and that is not always the case. At present he does not have any suicidal ideation or homicidal ideation. He denies any hallucinations. The patient states that he is unsure if he will purse pharmacologic treatment but would like to look into therapy as a means to help have productive conversations in the future.? 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 Neuro: Denies dizziness/lightheadedness. Denies TBI, seizure, memory loss. Denies numbness/tingling in extremities HEENT: Denies vision/hearing changes. Pulmonary: Denies SOB, dyspnea, cough, wheezing. Cardiac: Denies chest pain/pressure. Denies edema, palpitations. GI: Endorses N/V which he attributes to anxiety. Denies abdominal pain, heartburn. Denies constipation and diarrhea Physical exam General: not in any acute distress Skin: intact HEENT: head atraumatic, face symmetrical. Pulm: ?Breathing normally without excessive effort, Lungs CTAB Cardio: Regular rate and rhythm Abdomen: Normal inspection Musculoskeletal: Moves all extremities, normal strength all extremities. Neuro: Pt alert, oriented x3. Gait normal. ? CNI: Intact, normal olfaction ? CNII: Visual navarro intact ? ? ?CNIII,IV,: EOM intact, no nystagmus. ? ? ?CNV: Sensation intact to light touch. ? ? ?CNVII: Raises eyebrows, smile/frown, puff out cheeks symmetrically. ? ? ?CNVIII: Hearing intact bilaterally. ? ? ?CNIX,X: Voice normal, soft palate elevation normal, symmetrical. ? ? ?CNXI: Shoulder shrug strong, equal bilaterally. ? ? ?CNXII: Tongue protrusion midline MSE Appearance: grossly normal. Fair grooming and hygiene, calm, cooperative, engaged in the interview. Good eye contact. Normal psychomotor activity. Mental Status: mental status grossly normal Mood: feeling good Affect: mood-congruent affect Speech and Movement: speech and movement normal and speech clear. Regular rate, rhythm, volume, and tone. Non pressured. Attitude: cooperative Thought Process: normal, linear, logical, and goal-oriented Thought Content:Denies paranoid or delusional thoughts. Denied hallucinations, no homicidality and no suicidality. Does not appear to be responding to internalstimuli. Insight: good Judgment: good [facility] Medical History (Updated 05/25/24 @ 18:54 by Mai Kelsey APRN) Morbid obesity with BMI of 40.0-44.9, adult Hyperlipidemia Neuropathy HTN (hypertension) Diabetes Social History Smoking Status: Never smoker Substance Use Type: None Meds Medications and Allergies Allergies No Known Allergies Allergy (Verified 05/25/24 12:12) Home Medications aspirin 81 mg tablet,delayed release 81 mg PO DAILY 05/25/24 [History Confirmed 05/25/24] atorvastatin 40 mg tablet 40 mg PO DAILY 05/25/24 [History Confirmed 05/25/24] bilberry (vaccinium myrtillus) 500 mg capsule 500 mg PO DAILY 05/25/24 [History Confirmed 05/25/24] cinnamon bark 500 mg capsule (Cinnamon) 500 mg PO DAILY 05/25/24 [History Confirmed 05/25/24] clomipramine 25 mg capsule 25 mg PO DAILY 05/25/24 [History Confirmed 05/25/24] fenofibrate 160 mg tablet 160 mg PO HS 05/25/24 [History Confirmed 05/25/24] fenugreek seed 610 mg capsule 610 mg PO .AM DAILY 05/25/24 [History Confirmed 05/25/24] furosemide 40 mg tablet 40 mg PO .AM DAILY 05/25/24 [History Confirmed 05/25/24] garlic 345 mg capsule 1 mg PO DAILY 05/25/24 [History Confirmed 05/25/24] insulin regular hum U-500 conc 500 unit/mL subcutaneous soln (Humulin R U-500 (Concentrated) Insulin) 500 unit subcut .before meals 05/25/24 [History Confirmed 05/25/24] lisinopril 20 mg tablet 20 mg PO .AM Daily 05/25/24 [History Confirmed 05/25/24] metoprolol succinate 50 mg tablet,extended release 24 hr 50 mg PO .AM DAILY 05/25/24 [History Confirmed 05/25/24] nabumetone 500 mg tablet 500 mg PO BID 05/25/24 [History Confirmed 05/25/24] semaglutide 0.25 mg or 0.5 mg (2 mg/3 mL) subcutaneous pen injector (Ozempic) 0.25 mg subcut .once weekly 05/25/24 [History Confirmed 05/25/24] semaglutide 1 mg/dose (4 mg/3 mL) subcutaneous pen injector (Ozempic) 1 mg subcut .once weekly 05/25/24 [History Confirmed 05/25/24] turmeric 400 mg capsule 400 mg PO .AM DAILY 05/25/24 [History Confirmed 05/25/24] Exam Physical Exam Vital Signs: Temp Pulse Resp BP Pulse Ox O2 Del Method 97.8 F 75 16 96/68 L 96 Room Air 05/26/24 07:30 05/26/24 07:30 05/26/24 07:30 05/26/24 07:30 05/26/24 07:30 05/26/24 07:30 Results - Psychiatry Labs 05/25/24 12:30 05/25/24 12:30 Psychiatry Labs: 05/25/24 05/25/24 12:30 12:34 RBC 5.09 Hgb 15.3 Hct 43.9 MCV 86.3 MCH 30.1 MCHC 34.9 RDW 12.7 Plt Count 282 MPV 8.1 Sodium 138 Potassium 3.9 Chloride 104 Carbon Dioxide 26.3 Anion Gap 11.6 BUN 14 Creatinine 0.83 Calcium 9.6 Total Bilirubin 0.5 AST 36 ALT 53 H Alkaline Phosphatase 45 Total Protein 7.0 Albumin 4.5 Urine Color Yellow Urine Appearance Clear Urine pH 5.5 Ur Specific Amery 1.027 Urine Protein Trace H Urine Glucose (UA) Normal Urine Ketones Trace H Urine Occult Blood Negative Urine Nitrite Negative Ur Leukocyte Esterase Negative Urine RBC 1-2 Urine WBC 5-9 H Assessment/Plan (1) Hyperlipidemia: (2) Morbid obesity with BMI of 40.0-44.9, adult: (3) HTN (hypertension): (4) Diabetes: Plan PLAN Patient presenting due to suicidal ideation -Start Zoloft 25 mg QAM -Continue insulin regimen per IM consult Recs -Continue home medications for chronic medical disease states Continue to monitor mental status Monitor suicidal behaviors for safety of self (15-minute face check). Encourage medication adherence. Risks, benefits, and alternatives of treatment explained Recommend?attending groups and psychoeducation for building coping skills. Risks, benefits and indications of medications were discussed with the patient.? Involve friends/family members to coordinate care and ensure appropriate outpatient appointments are scheduled prior to discharge. Documented By: Dustin Painter MD [id number] Signed By: <Electronically signed by Dustin Painter MD> 05/27/24 0645 [facility] Work Phone: 1(309) 836-424008-26-2024 Consult note Author Jeronimo Haley [facility] May 25, 2024 7:18pm Note Date/Time May 25, 2024 6: 48pm [facility] [address] [place] [address] Hospitalist Consult Note Signed Patient: Hossein Zamarripa MR #: [id number] : 1990 Acct:[id number] Age/Sex: 33 / M Adm Date: 4 Loc: Room: [address] [place] [address] Type: ADM IN Attending Dr: Dustin Painter MD Copies to: MD Jeronimo Torrez, MAREK Baires MD~ HPI DATE OF CONSULTATION: 05/25/24 REQUESTING PROVIDER: Dustin Painter Consult Narrative Reason for Consult: Diabetes management HPI: This is a 33-year-old male past medical history significant for diabetes since age [address] Juan/endocrinology, hypertension, hyperlipidemia, obesity BMI 44, depression. Patient presented to the emergency department with depression and suicidal ideation earlier today. Hospitalist team is now consulted for ongoing management of diabetes. The patient normally has insulin pump with continuous glucose monitor however this was turned off in the emergency department since he was being admitted to the inpatient psychiatric unit. Patient normally uses U-500 insulin with total basal rate of 21.775 unitsdaily plus bolus based on CGM, does not do carb counting routinely. Patient seen and examined. He is up in the common area eating dinner. Denies chest pain or palpitations. No cough, dyspnea, or pain with inspiration. No abdominal pain or indigestion, constipation or diarrhea, nausea or vomiting. Nodysuria or retention. No headache or dizziness. No fevers or chills. Review of Systems Review of Systems All other systems reviewed & are negative unless noted below or in HPI [facility] Medical History (Updated 05/25/24 @ 18:54 by Mai Kelsey APRN) Morbid obesity with BMI of 40.0-44.9, adult Hyperlipidemia Neuropathy HTN (hypertension) Diabetes Social History Smoking Status: Never smoker Substance Use Type: None Meds Medications and Allergies Allergies No Known Allergies Allergy (Verified 05/25/24 12:12) Home Medications aspirin 81 mg tablet,delayed release 81 mg PO DAILY 05/25/24 [History Confirmed 05/25/24] atorvastatin 40 mg tablet 40 mg PO DAILY 05/25/24 [History Confirmed 05/25/24] bilberry (vaccinium myrtillus) 500 mg capsule 500 mg PO DAILY 05/25/24 [History Confirmed 05/25/24] cinnamon bark 500 mg capsule (Cinnamon) 500 mg PO DAILY 05/25/24 [History Confirmed 05/25/24] clomipramine 25 mg capsule 25 mg PO DAILY 05/25/24 [History Confirmed 05/25/24] fenofibrate 160 mg tablet 160 mg PO HS 05/25/24 [History Confirmed 05/25/24] fenugreek seed 610 mg capsule 610 mg PO .AM DAILY 05/25/24 [History Confirmed 05/25/24] furosemide 40 mg tablet 40 mg PO .AM DAILY 05/25/24 [History Confirmed 05/25/24] garlic 345 mg capsule 1 mg PO DAILY 05/25/24 [History Confirmed 05/25/24] insulin regular hum U-500 conc 500 unit/mL subcutaneous soln (Humulin R U-500 (Concentrated) Insulin) 500 unit subcut .before meals 05/25/24 [History Confirmed 05/25/24] lisinopril 20 mg tablet 20 mg PO .AM Daily 05/25/24 [History Confirmed 05/25/24] metoprolol succinate 50 mg tablet,extended release 24 hr 50 mg PO .AM DAILY 05/25/24 [History Confirmed 05/25/24] nabumetone 500 mg tablet 500 mg PO BID 05/25/24 [History Confirmed 05/25/24] semaglutide 0.25 mg or 0.5 mg (2 mg/3 mL) subcutaneous pen injector (Ozempic) 0.25 mg subcut .once weekly 05/25/24 [History Confirmed 05/25/24] semaglutide 1 mg/dose (4 mg/3 mL) subcutaneous pen injector (Ozempic) 1 mg subcut .once weekly 05/25/24 [History Confirmed 05/25/24] turmeric 400 mg capsule 400 mg PO .AM DAILY 05/25/24 [History Confirmed 05/25/24] Active Medications: Active Medications Generic Name Dose Route Start Last Admin Trade Name Erin PRN Reason Stop Dose Admin Acetaminophen 500 mg 05/25/24 16:56 Acetaminophen 500 Mg Tablet PO 05/25/25 16:55 Q6H PRN Fever or Pain Al Hydrox/Mg Hydrox/Simethicone 30 ml 05/25/24 16:56 Mag Hydrox/Al Hydrox/Simeth 30 Ml Udc PO 05/25/25 16:55 Q6H PRN Indigestion Aspirin 81 mg 05/26/24 09:00 Aspirin 81 Mg Tablet. PO 05/26/25 08:59 DAILY FERMIN Atorvastatin Calcium 40 mg 05/26/24 09:00 Atorvastatin 40 Mg Tablet PO 05/26/25 08:59 QPM FERMIN Benztropine Mesylate 0.5 mg 05/25/24 16:56 Benztropine 2 Mg/2 Ml Ampul IM 05/25/25 16:55 Q6H PRN Dystonia Benztropine Mesylate 0.5 mg 05/25/24 16:56 Benztropine 0.5 Mg Tablet PO 05/25/25 16:55 Q6H PRN Dystonia Clomipramine HCl 25 mg 05/26/24 09:00 Clomipramine 25 Mg Capsule PO 05/26/25 08:59 DAILY FERMIN Dextrose 15 gm 05/25/24 18:44 Dextrose 50% In Water 25 Gm/50 Ml Syringe IV-PUSH 05/25/25 18:43 TID.AC.HS.2A PRN Blood Glucose <120 mg/dL Dextrose 25 gm 05/25/24 18:44 Dextrose 50% In Water 25 Gm/50 Ml Syringe IV-PUSH 05/25/25 18:43 TID.AC.HS.2A PRN Blood Glucose <100 mg/dL Fenofibrate 145 mg 05/25/24 22:00 Fenofibrate Nanocrystallized 145 Mg Tablet PO 05/25/25 21:59 HS FERMIN Furosemide 40 mg 05/26/24 09:00 Furosemide 40 Mg Tablet PO 05/26/25 08:59 DAILY FERMIN Glucose 30 gm 05/25/24 18:44 Dextrose 40% Gel 15 Gm Tube PO 05/25/25 18:43 TID.AC.HS.2A PRN Blood Glucose <100 mg/dL Glucose 15 gm 05/25/24 18:44 Dextrose 40% Gel 15 Gm Tube PO 05/25/25 18:43 TID.AC.HS.2A PRN Blood Glucose <120 mg/dL Hydroxyzine Pamoate 50 mg 05/25/24 16:56 Hydroxyzine Pamoate 50 Mg Capsule PO 05/25/25 16:55 Q6H PRN Anxiety Ibuprofen 400 mg 05/25/24 16:56 Ibuprofen 400 Mg Tablet PO 05/25/25 16:55 Q6H PRN Pain Insulin Human Regular 7 unit 05/26/24 07:30 Insulin Regular U-500, Human 1,500 Unit/3 Ml Insuln.Pen SUBCUT 05/26/25 07:29 DAILY.AC.BKFAST [facility] Protocol Insulin Human Regular 0 unit 05/25/24 22:00 Insulin Regular U-500, Human 1,500 Unit/3 Ml Insuln.Pen SUBCUT 05/25/25 21:59 TID.AC.HS.2A FERMIN Protocol Insulin Human Regular 7 unit 05/26/24 11:30 Insulin Regular U-500, Human 1,500 Unit/3 Ml Insuln.Pen SUBCUT 05/26/25 11:29 DAILY.AC.LUNCH [facility] Protocol Insulin Human Regular 7 unit 05/26/24 16:30 Insulin Regular U-500, Human 1,500 Unit/3 Ml Insuln.Pen SUBCUT 05/26/25 16:29 DAILY.AC SUPPER [facility] Protocol Lisinopril 20 mg 05/25/24 18:15 05/25/24 18:41 Lisinopril 20 Mg Tablet PO 05/25/25 18:14 20 mg DAILY FERMIN Administration Magnesium Hydroxide 30 ml 05/25/24 16:56 Magnesium Hydroxide Susp 30 Ml Udc PO 05/25/25 16:55 Q6H PRN Constipation Metoprolol Succinate 50 mg 05/25/24 18:15 05/25/24 18:41 Metoprolol Succinate 50 Mg Tab.Er.24h PO 05/25/25 18:14 50 mg DAILY FERMIN Administration Nabumetone 500 mg 05/25/24 21:00 Nabumetone 500 Mg Tablet PO 05/25/25 20:59 BID FERMIN Nicotine Polacrilex 2 mg 05/25/24 16:56 Nicotine Polacrilex 2 Mg Gum BUCCAL 05/25/25 16:55 Q2H PRN Nicotine Cravings Semaglutide [Ozempic 1 mg 05/25/24 18:15 ] 1 Mg/Dose (4 Mg/3 SUBCUT 05/25/25 18:14 Ml) Pen Injector .once weekly FERMIN Olanzapine 5 mg 05/25/24 16:56 Olanzapine 10 Mg Vial *Nf* IM 05/25/25 16:55 Q6H PRN Agitation Olanzapine 5 mg 05/25/24 16:56 Olanzapine 5 Mg Tablet PO 05/25/25 16:55 Q6H PRN Agitation Sodium Chloride 0 ml 05/25/24 12:12 Sodium Chloride 0.9 % 10 Ml Syringe IV-PUSH 05/25/25 12:11 PRN PRN Flush Sterile Water 2.1 ml 05/25/24 16:56 Water For Injection,Sterile 10 Ml Vial INJECTION 05/25/25 16:55 PRN PRN To dilute OLANZapine (ZyPREXA) Trazodone HCl 50 mg 05/25/24 17:01 Trazodone 50 Mg Tablet PO 05/25/25 17:00 QHS PRN Insomnia Exam Physical Exam Vital Signs: Temp Pulse Resp BP Pulse Ox O2 Del Method 98.0 F 93 18 127/89 97 CPAP 05/25/24 17:54 05/25/24 17:54 05/25/24 17:54 05/25/24 17:54 05/25/24 17:54 05/25/24 17:57 Narrative: CONST- alert, Up in common area, ambulatory HEAD- normocephalic and atraumatic EENT- sclera nonicteric and conjunctiva nonerythemic, moist oral mucosa, pharynxNot visualized NECK- supple, no cervical lymphadenopathy CARDIAC- RRR no abnormal heart tones PULM- diminished without wheeze or rhonchi, RA, no accessory muscle use or coughnoted ABD- S/NT, NABS, Obese EXTREM- no edema BLE, calves nontender SKIN- W/D, good turgor MS- MAEx4 spontaneously with equal strength NEURO- A&Ox3, speech clear and tongue midline, equal facial symmetry PSYCH-mood and behavior appropriate, Cooperative Results - Hospitalist Consult Lab Results Labs: Laboratory Results - last 72 hr 05/25/24 18:12: POC Glucose 155, POC Glucose Comment Glu2: cleaned meter 05/25/24 12:34: Urine Color Yellow, Urine Appearance Clear, Urine pH 5.5, Ur Specific Amery 1.027, Urine Protein Trace H, Urine Glucose (UA) Normal, Urine Ketones Trace H, Urine Occult Blood Negative, Urine Nitrite Negative, Urine Bilirubin Negative, Urine Urobilinogen Normal, Ur Leukocyte Esterase Negative, Urine RBC 1-2, Urine WBC 5-9 H, Ur Squamous Epith Cells N/A, Urine Bacteria Rare, Hyaline Casts None, Urine Mucus 4+ A, Urine Opiates Screen Negative, Ur Barbiturates Screen Negative, Ur Phencyclidine Scrn Negative, Ur Amphetamines Screen Negative, U Benzodiazepines Scrn Negative, Urine Cocaine Screen Negative,U Marijuana (THC) Screen Negative 05/25/24 12:30: Corrected WBC 7.9, Uncorrected WBC Count 7.9, RBC 5.09, Hgb 15.3, Hct 43.9, MCV 86.3, MCH 30.1, MCHC 34.9, RDW 12.7, Plt Count 282, MPV 8.1,Neut % (Auto) 65.9, Lymph % (Auto) 24.1, [place] % (Auto) 8.8, Eos % (Auto) 0.7, Baso % (Auto) 0.5, Nucleat RBC Rel Count 0.1, Neut # (Auto) 5.2, Lymph # (Auto) 1.9, [place] # (Auto) 0.7, Eos # (Auto) 0.1, Baso # (Auto) 0.0, Monocyte Dist Width16.56, PHA Creatinine Clear 163.62, Sodium 138, Potassium 3.9, Chloride 104, Carbon Dioxide 26.3, Anion Gap 11.6, BUN 14, Creatinine 0.83, Est GFR (CKD-EPI) > 60.0, Glucose 131 H, Calcium 9.6, Total Bilirubin 0.5, AST 36, ALT 53 H, Alkaline Phosphatase 45, Total Protein 7.0, Albumin 4.5, Globulin 2.5, Albumin/Globulin Ratio 1.8, Ethyl Alcohol < 10, % Ethyl Alcohol TNP Assessment & Plan Assessment/Plan (1) Hyperlipidemia: (2) Morbid obesity with BMI of 40.0-44.9, adult: (3) HTN (hypertension): (4) Diabetes: Plan Diabetes -Follows with Dr. Calderon/endocrinology as outpatient, reports his most recent A1c was 8.7, insulin pump with CGM utilizing U-500 insulin total basal dose 21.775 units by review of insulin pump settings. -U-500 7 units with each meal and sliding scale ACHS and 2a, Ozempic -Check A1c -Patient to resume insulin pump at discharge Chronic conditions 1. Hypertension? Aspirin, furosemide, lisinopril, metoprolol succinate 2. Hyperlipidemia-Fenofibrate, atorvastatin 3. Morbid obesity BMI 44-Ozempic and actively losing weight intentionally Depression with suicidal ideation -Further plan of care per inpatient psychiatric team for psychoactive medicationmanagement/adjustment and psychotherapy Documented By: Mai Kelsey APRN 05/01 Signed By: <Electronically signed by MAREK Kelsey> 05/25/241854 <Electronically signed by Jeronimo Haley DO> 05/25/241917 [facility] Work Phone: [phone] NoteCardiovascular Medicine [facility] SUBJECTIVE Follow up HPI Hossein Zamarripa is a 33 y.o. male who was initially referred to Cardiology clinic for chest pain, palpitations, and abnormal stress test. At that time, stress test demonstrated a fixed defect with no reversible ischemia. Patient here for 6 mo follow up hyperlipidemia and sinus tachycardia. He was admitted to [facility] in December 2023 for tachycardia. Echo was performed and was unremarkable. Metoprolol was doubled to 50mg bid upon discharge. He has been doing well with this. He denies any anginal chest pain. He says on occasion, he will have a sharp chest pain with numbness that radiates into his arm when he sneezes harshly. No chest pain with activity. Breathing is stable. No dizziness or lightheadedness. No lower extremity edema, orthopnea, or PND. 02/13/23 His symptoms have been improved since last seen. He has only had 2 occurences of chest pain since last seen. Both occurred at rest and lasted for about 5 minutes then resolved on their own. He denies any further issues with palpitations. He does not check his BP at home. He gets some leg swelling that is controlled by his water pills. He denies c/o dyspnea, dizziness/LH, orthopnea, PND, syncope. 01/03/23 He has been having left sided chest pain for the past 3 months. Onset has no known cause. Occurs anywhere from 3-5 days a week. Pain is sharp/achy pain, 5-7/10. Pain radiates to his left shoulder. Occurs at rest or exertion. If he is walking and it occurs he will get accompanied SOB, if it occurs at rest he denies any accompanied sx's. Can last for 15mins to all day. Nothing seems to make it better such as drinking milk, water, pressing on the area. When this first started, he was having elevated HRs in the 140s along with elevated BPs. He c/o intermittent palpitations with elevated HRs. Sometimes chest pain accompanies the palpitations and other times it occurs by itself. He has some dyspnea on exertion with heavier exertion, this has been stable for him and not worsening. He follows with endocrinology for his DM management, Dr. Byrne in [place]. He states his BP typically runs in the 200s. Diet: watching his carb intake, he drinks a lot of coke zero Exercise: no specific exercise routine Tobacco: denies ETOH: rarely Recreational drug use: rare use of marijuana gummy Allergies Allergen Reactions Adhesive Tape-Silicones Shellfish Derived Patient Active Problem List Diagnosis Type 2 diabetes mellitus ([facility]) Snoring Hypertensive disorder Hyperlipidemia Diabetic neuropathy ([facility]) Neuropathy Sleep disturbances Class 3 severe obesity due to excess calories in adult (CMS/HCC) Sinus tachycardia Annual physical exam Benign essential hypertension Bilateral leg edema Chronic neck pain Dyslipidemia Premature ejaculation Primary insomnia Vitamin D deficiency Past Medical History: Diagnosis Date Hyperlipidemia Hypertension Type 2 diabetes mellitus ([facility]/HCC) No past surgical history on file. Family History Problem Relation Name Age of Onset Hypertension Mother Hypertension Father Diabetes Father's Sister Cancer Father's Brother Coronary artery disease Father's Brother Stents Valvular heart disease Father's Brother Hx valve replacement Diabetes Father's Brother Hypertension Maternal Grandmother Dementia Maternal Grandmother Hypertension Maternal Grandfather Prostate cancer Maternal Grandfather Diabetes Paternal Grandmother Social History Tobacco Use Smoking status: Never Smokeless tobacco: Never Substance Use Topics Alcohol use: Not Currently Review of Systems Constitutional: Negative for chills, decreased appetite, fever and malaise/fatigue. Cardiovascular: Positive for chest pain. Negative for dyspnea on exertion, irregular heartbeat, leg swelling, near-syncope, orthopnea, palpitations, paroxysmal nocturnal dyspnea and syncope. OBJECTIVE Visit Vitals BP 116/84 (BP Location: Right arm, Patient Position: Sitting) Pulse 90 Ht 1.702 m (5' 7 ) Wt 134 kg (295 lb) SpO2 97% BMI 46.20 kg/m??? Smoking Status Never BSA 2.52 m??? Medications: Current Outpatient Medications: aspirin 81 mg EC tablet, Take 81 mg by mouth in the morning., Disp: , Rfl: atorvastatin (Lipitor) 40 mg tablet, Take one tablet daily, Disp: 90 tablet, Rfl: 3 cinnamon 500 mg capsule, Take 500 mg by mouth in the morning., Disp: , Rfl: clomiPRAMINE (Anafranil) 25 mg capsule, Take 25 mg by mouth at bedtime., Disp: , Rfl: fenofibrate (Lofibra) 160 mg tablet, Take 160 mg by mouth., Disp: , Rfl: furosemide (Lasix) 40 mg tablet, Take 1 tablet (40 mg) by mouth in the morning., Disp: 90 tablet, Rfl: 3 insulin regular, human (HUMULIN R U-500, CONC, INSULIN SUBQ), Inject under the skin. Controlled by pump, Disp: , Rfl: lisinopril 20 mg tablet, Take 1 tablet (20 (more content not included)... [facility] Onset Date Resolution Status Suicidal ideation [facility] Work Phone: Evaluation note* Diagnosis Onset Date Resolution Status Diabetes acute HTN (hypertension) acute Hyperlipidemia acute Morbid obesity with BMI of 40.0-44.9, adult acute Suicidal ideation [facility] Work Phone: Evaluation note* Diagnosis Type 2 diabetes mellitus with hyperglycemia, with long-term current use of insulin (CMS/HCC)- Primary 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) Type II or unspecified type diabetes mellitus with neurological manifestations, not stated as uncontrolled Benign essential hypertension (CMS/HCC) Essential hypertension, benign Bilateral leg edema Edema Annual physical exam Routine general medical examination at a health care facility Morbid obesity due to excess calories (CMS/[facility]) Sinus tachycardia- Primary Other specified cardiac dysrhythmias Type 2 diabetes mellitus with hyperglycemia, with long-term current use of insulin (CMS/HCC) Benign essential hypertension (CMS/HCC) Essential hypertension, benign Viral gastroenteritis Intestinal infection due to other organism, NEC Morbid obesity due to excess calories (CMS/HCC) Benign essential hypertension (CMS/HCC)- Primary Essential hypertension, benign 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) Type II or unspecified type diabetes mellitus with neurological manifestations, not stated as uncontrolled Sinus tachycardia Other specified cardiac dysrhythmias Bilateral leg edema Edema Primary insomnia Persistent disorder of initiating or maintaining sleep Type 2 diabetes mellitus with hyperglycemia, with long-term current use of insulin (CMS/[facility]) MDD (major depressive disorder), recurrent episode, moderate (CMS/HCC)- Primary Primary insomnia Persistent disorder of initiating or maintaining sleep Erectile dysfunction associated with type 2 diabetes mellitus ([facility]) Type II or unspecified type diabetes mellitus without mention of complication, not stated as uncontrolled Type 2 diabetes mellitus with hyperglycemia, with long-term current use of insulin ([facility]) Type 2 diabetes mellitus with polyneuropathy ([facility]) Type II or unspecified type diabetes mellitus with neurological manifestations, not stated as uncontrolled [facility] Diagnosis MDD (major depressive disorder), recurrent episode, moderate (HCC) ([facility])- Primary Primary insomnia Persistent disorder of initiating or maintaining sleep Erectile dysfunction associated with type 2 diabetes mellitus ([facility]) Type II or unspecified type diabetes mellitus without mention of complication, not stated as uncontrolled Type 2 diabetes mellitus with hyperglycemia, with long-term current use of insulin ([facility]) [facility] Diagnosis Type 2 diabetes mellitus with hyperglycemia, with long-term current use of insulin ([facility])- Primary Type 2 diabetes mellitus with polyneuropathy ([facility]) Type II or unspecified type diabetes mellitus with neurological manifestations, not stated as uncontrolled Benign essential hypertension (CMS/HCC) Essential hypertension, benign Bilateral leg edema Edema Annual physical exam Routine general medical examination at a health care facility Morbid obesity due to excess calories (CMS/[facility]) Sinus tachycardia- Primary Other specified cardiac dysrhythmias Type 2 diabetes mellitus with hyperglycemia, with long-term current use of insulin ([facility]) Benign essential hypertension ([facility]) Essential hypertension, benign Viral gastroenteritis Intestinal infection due to other organism, NEC Morbid obesity due to excess calories ([facility]) Benign essential hypertension ([facility])- Primary Essential hypertension, benign Type 2 diabetes mellitus with polyneuropathy ([facility]) Type II or unspecified type diabetes mellitus with neurological manifestations, not stated as uncontrolled Sinus tachycardia Other specified cardiac dysrhythmias Bilateral leg edema Edema Primary insomnia Persistent disorder of initiating or maintaining sleep Type 2 diabetes mellitus with hyperglycemia, with long-term current use of insulin ([facility]) MDD (major depressive disorder), recurrent episode, moderate ([facility])- Primary Primary insomnia Persistent disorder of initiating or maintaining sleep Erectile dysfunction associated with type 2 diabetes mellitus ([facility]) Type II or unspecified type diabetes mellitus without mention of complication, not stated as uncontrolled Type 2 diabetes mellitus with hyperglycemia, with long-term current use of insulin ([facility]) Type 1 diabetes mellitus with hyperglycemia ([facility]) ([facility])- Primary Encounter for dietary consultation Vitamin D deficiency Encounter for fitting or adjustment of insulin pump Fitting and adjustment of insulin pump Insulin pump in place Insulin pump status Insulin long-term use ([facility]) Encounter for long-term (current) use of insulin High risk medication use Class 3 severe obesity due to excess calories with serious comorbidity and body mass index (BMI) of 40.0 to 44.9 in adult ([facility]) documented in this encounter [facility]* Diagnosis Type 2 diabetes mellitus with hyperglycemia, with long-term current use of insulin ([facility])- Primary Type 2 diabetes mellitus with polyneuropathy ([facility]) Type II or unspecified type diabetes mellitus with neurological manifestations, not stated as uncontrolled Benign essential hypertension ([facility]) Essential hypertension, benign Bilateral leg edema Edema Annual physical exam Routine general medical examination at a health care facility Morbid obesity due to excess calories ([facility]) Sinus tachycardia- Primary Other specified cardiac dysrhythmias Type 2 diabetes mellitus with hyperglycemia, with long-term current use of insulin ([facility]) Benign essential hypertension ([facility]) Essential hypertension, benign Viral gastroenteritis Intestinal infection due to other organism, NEC Morbid obesity due to excess calories ([facility]) Benign essential hypertension ([facility])- Primary Essential hypertension, benign 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) Type II or unspecified type diabetes mellitus with neurological manifestations, not stated as uncontrolled Sinus tachycardia Other specified cardiac dysrhythmias Bilateral leg edema Edema Primary insomnia Persistent disorder of initiating or maintaining sleep Type 2 diabetes mellitus with hyperglycemia, with long-term current use of insulin ([facility]) MDD (major depressive disorder), recurrent episode, moderate (CMS/HCC)- Primary Primary insomnia Persistent disorder of initiating or maintaining sleep Erectile dysfunction associated with type 2 diabetes mellitus ([facility]/HCC) Type II or unspecified type diabetes mellitus without mention of complication, not stated as uncontrolled Type 2 diabetes mellitus with hyperglycemia, with long-term current use of insulin ([facility]) Benign essential hypertension ([facility])- Primary Essential hypertension, benign MDD (major depressive disorder), recurrent episode, moderate ([facility]) Type 2 diabetes mellitus with polyneuropathy ([facility]) Type II or unspecified type diabetes mellitus with neurological manifestations, not stated as uncontrolled Bilateral leg edema Edema Primary insomnia Persistent disorder of initiating or maintaining sleep Type 2 diabetes mellitus with hyperglycemia, with long-term current use of insulin ([facility]) documented in this encounter [facility]* Diagnosis Premature ejaculation Hypertriglyceridemia ([facility]) Pure hyperglyceridemia documented in this encounter [facility]* Diagnosis Type 2 diabetes mellitus with hyperglycemia, with long-term current use of insulin ([facility])- Primary Type 2 diabetes mellitus with polyneuropathy ([facility]) Type II or unspecified type diabetes mellitus with neurological manifestations, not stated as uncontrolled Benign essential hypertension ([facility]/HCC) Essential hypertension, benign Bilateral leg edema Edema Annual physical exam Routine general medical examination at a health care facility Morbid obesity due to excess calories ([facility]) Sinus tachycardia- Primary Other specified cardiac dysrhythmias Type 2 diabetes mellitus with hyperglycemia, with long-term current use of insulin ([facility]) Benign essential hypertension ([facility]/HCC) Essential hypertension, benign Viral gastroenteritis Intestinal infection due to other organism, NEC Morbid obesity due to excess calories ([facility]) Benign essential hypertension (CMS/HCC)- Primary Essential hypertension, benign Type 2 diabetes mellitus with polyneuropathy ([facility]/HCC) Type II or unspecified type diabetes mellitus with neurological manifestations, not stated as uncontrolled Sinus tachycardia Other specified cardiac dysrhythmias Bilateral leg edema Edema Primary insomnia Persistent disorder of initiating or maintaining sleep Type 2 diabetes mellitus with hyperglycemia, with long-term current use of insulin (CMS/HCC) MDD (major depressive disorder), recurrent episode, moderate (CMS/HCC)- Primary Primary insomnia Persistent disorder of initiating or maintaining sleep Erectile dysfunction associated with type 2 diabetes mellitus (CMS/HCC) Type II or unspecified type diabetes mellitus without mention of complication, not stated as uncontrolled Type 2 diabetes mellitus with hyperglycemia, with long-term current use of insulin (CMS/HCC) Benign essential hypertension (CMS/HCC)- Primary Essential hypertension, benign MDD (major depressive disorder), recurrent episode, moderate (CMS/HCC) 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) Type II or unspecified type diabetes mellitus with neurological manifestations, not stated as uncontrolled Bilateral leg edema Edema Primary insomnia Persistent disorder of initiating or maintaining sleep Type 2 diabetes mellitus with hyperglycemia, with long-term current use of insulin ([facility]) 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/[facility]) Type II or unspecified type diabetes mellitus with neurological manifestations, not stated as uncontrolled [facility] encounter [facility]* Diagnosis Type 2 diabetes mellitus with hyperglycemia, with long-term current use of insulin ([facility]/HCC)- Primary 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/[facility]) Type II or unspecified type diabetes mellitus with neurological manifestations, not stated as uncontrolled Benign essential hypertension (CMS/HCC) Essential hypertension, benign Bilateral leg edema Edema Annual physical exam Routine general medical examination at a health care facility Morbid obesity due to excess calories ([facility]) Sinus tachycardia- Primary Other specified cardiac dysrhythmias Type 2 diabetes mellitus with hyperglycemia, with long-term current use of insulin (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) Type II or unspecified type diabetes mellitus with neurological manifestations, not stated as uncontrolled Sinus tachycardia Other specified cardiac dysrhythmias Bilateral leg edema Edema Primary insomnia Persistent disorder of initiating or maintaining sleep Type 2 diabetes mellitus with hyperglycemia, with long-term current use of insulin (CMS/HCC) MDD (major depressive disorder), recurrent episode, moderate (CMS/HCC)- Primary Primary insomnia Persistent disorder of initiating or maintaining sleep Erectile dysfunction associated with type 2 diabetes mellitus (CMS/HCC) Type II or unspecified type diabetes mellitus without mention of complication, not stated as uncontrolled Type 2 diabetes mellitus with hyperglycemia, with long-term current use of insulin ([facility]) Benign essential hypertension (CMS/HCC)- Primary Essential hypertension, benign MDD (major depressive disorder), recurrent episode, moderate (CMS/HCC) 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) Type II or unspecified type diabetes mellitus with neurological manifestations, not stated as uncontrolled Bilateral leg edema Edema Primary insomnia Persistent disorder of initiating or maintaining sleep Type 2 diabetes mellitus with hyperglycemia, with long-term current use of insulin (CMS/HCC) Benign essential hypertension (CMS/HCC)- Primary Essential hypertension, benign MDD (major depressive disorder), recurrent episode, moderate (CMS/HCC) 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) Type II or unspecified type diabetes mellitus with neurological manifestations, not stated as uncontrolled Bilateral leg edema Edema Primary insomnia Persistent disorder of initiating or maintaining sleep Type 2 diabetes mellitus with hyperglycemia, with long-term current use of insulin ([facility]) Class 3 severe obesity due to excess calories with serious comorbidity and body mass index (BMI) of 45.0 to 49.9 in adult Type 1 diabetes mellitus with hyperglycemia (HCC) ([facility])- Primary Encounter for dietary consultation Vitamin D deficiency Encounter for fitting or adjustment of insulin pump Fitting and adjustment of insulin pump Insulin pump in place Insulin pump status Insulin long-term use ([facility]) Encounter for long-term (current) use of insulin High risk medication use Class 3 severe obesity due to excess calories with serious comorbidity and body mass index (BMI) of 45.0 to 49.9 in adult documented in this encounter [facility]Evaluation note* Diagnosis Type 2 diabetes mellitus with hyperglycemia, with long-term current use of insulin ([facility])- Primary Type 2 diabetes mellitus with polyneuropathy ([facility]) Type II or unspecified type diabetes mellitus with neurological manifestations, not stated as uncontrolled Benign essential hypertension (CMS/HCC) Essential hypertension, benign Bilateral leg edema Edema Annual physical exam Routine general medical examination at a health care facility Morbid obesity due to excess calories ([facility]) Sinus tachycardia- Primary Other specified cardiac dysrhythmias Type 2 diabetes mellitus with hyperglycemia, with long-term current use of insulin (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) Type II or unspecified type diabetes mellitus with neurological manifestations, not stated as uncontrolled Sinus tachycardia Other specified cardiac dysrhythmias Bilateral leg edema Edema Primary insomnia Persistent disorder of initiating or maintaining sleep Type 2 diabetes mellitus with hyperglycemia, with long-term current use of insulin (CMS/HCC) MDD (major depressive disorder), recurrent episode, moderate (CMS/HCC)- Primary Primary insomnia Persistent disorder of initiating or maintaining sleep Erectile dysfunction associated with type 2 diabetes mellitus (CMS/HCC) Type II or unspecified type diabetes mellitus without mention of complication, not stated as uncontrolled Type 2 diabetes mellitus with hyperglycemia, with long-term current use of insulin (CMS/HCC) Benign essential hypertension (CMS/HCC)- Primary Essential hypertension, benign MDD (major depressive disorder), recurrent episode, moderate (CMS/HCC) 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) Type II or unspecified type diabetes mellitus with neurological manifestations, not stated as uncontrolled Bilateral leg edema Edema Primary insomnia Persistent disorder of initiating or maintaining sleep Type 2 diabetes mellitus with hyperglycemia, with long-term current use of insulin (CMS/HCC) Benign essential hypertension (CMS/HCC)- Primary Essential hypertension, benign MDD (major depressive disorder), recurrent episode, moderate (CMS/HCC) 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) Type II or unspecified type diabetes mellitus with neurological manifestations, not stated as uncontrolled Bilateral leg edema Edema Primary insomnia Persistent disorder of initiating or maintaining sleep Type 2 diabetes mellitus with hyperglycemia, with long-term current use of insulin (CMS/HCC) Class 3 severe obesity due to excess calories with serious comorbidity and body mass index (BMI) of 45.0 to 49.9 in adult Type 1 diabetes mellitus with hyperglycemia (HCC) (CMS/HCC)- Primary documented in [facility] encounter [facility]* Diagnosis Type 2 diabetes mellitus with hyperglycemia, with long-term current use of insulin (CMS/HCC)- Primary 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) Type II or unspecified type diabetes mellitus with neurological manifestations, not stated as uncontrolled Benign essential hypertension (CMS/HCC) Essential hypertension, benign Bilateral leg edema Edema Annual physical exam Routine general medical examination at a health care facility Morbid obesity due to excess calories (CMS/HCC) Sinus tachycardia- Primary Other specified cardiac dysrhythmias Type 2 diabetes mellitus with hyperglycemia, with long-term current use of insulin (CMS/HCC) Benign essential hypertension (CMS/HCC) Essential hypertension, benign Viral gastroenteritis Intestinal infection due to other organism, NEC Morbid obesity due to excess calories (CMS/HCC) Benign essential hypertension (CMS/HCC)- Primary Essential hypertension, benign 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) Type II or unspecified type diabetes mellitus with neurological manifestations, not stated as uncontrolled Sinus tachycardia Other specified cardiac dysrhythmias Bilateral leg edema Edema Primary insomnia Persistent disorder of initiating or maintaining sleep Type 2 diabetes mellitus with hyperglycemia, with long-term current use of insulin (CMS/HCC) MDD (major depressive disorder), recurrent episode, moderate (CMS/HCC)- Primary Primary insomnia Persistent disorder of initiating or maintaining sleep Erectile dysfunction associated with type 2 diabetes mellitus (CMS/HCC) Type II or unspecified type diabetes mellitus without mention of complication, not stated as uncontrolled Type 2 diabetes mellitus with hyperglycemia, with long-term current use of insulin (CMS/HCC) Benign essential hypertension (CMS/HCC)- Primary Essential hypertension, benign MDD (major depressive disorder), recurrent episode, moderate (CMS/HCC) 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) Type II or unspecified type diabetes mellitus with neurological manifestations, not stated as uncontrolled Bilateral leg edema Edema Primary insomnia Persistent disorder of initiating or maintaining sleep Type 2 diabetes mellitus with hyperglycemia, with long-term current use of insulin (CMS/HCC) Benign essential hypertension (CMS/HCC)- Primary Essential hypertension, benign MDD (major depressive disorder), recurrent episode, moderate (CMS/HCC) 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) Type II or unspecified type diabetes mellitus with neurological manifestations, not stated as uncontrolled Bilateral leg edema Edema Primary insomnia Persistent disorder of initiating or maintaining sleep Type 2 diabetes mellitus with hyperglycemia, with long-term current use of insulin ([facility]/HCC) Class 3 severe obesity due to excess calories with serious comorbidity and body mass index (BMI) of 45.0 to 49.9 in adult Chronic neck pain Cervicalgia Premature ejaculation documented in this encounter [facility] HealthcareEvaluation noteNo assessment information availableKet[facility] Work Phone: Evaluation note* Diagnosis Type 2 diabetes mellitus with hyperglycemia, with long-term current use of insulin ([facility])- Primary Type 2 diabetes mellitus with polyneuropathy (HCC) Type II or unspecified type diabetes mellitus with neurological manifestations, not stated as uncontrolled Benign essential hypertension Essential hypertension, benign Bilateral leg edema Edema Annual physical exam Routine general medical examination at a health care facility Morbid obesity due to excess calories ([facility]) Sinus tachycardia- Primary Other specified cardiac dysrhythmias Type 2 diabetes mellitus with hyperglycemia, with long-term current use of insulin ([facility]) Benign essential hypertension Essential hypertension, benign Viral gastroenteritis Intestinal infection due to other organism, NEC Morbid obesity due to excess calories ([facility]) Benign essential hypertension- Primary Essential hypertension, benign Type 2 diabetes mellitus with polyneuropathy ([facility]) Type II or unspecified type diabetes mellitus with neurological manifestations, not stated as uncontrolled Sinus tachycardia Other specified cardiac dysrhythmias Bilateral leg edema Edema Primary insomnia Persistent disorder of initiating or maintaining sleep Type 2 diabetes mellitus with hyperglycemia, with long-term current use of insulin ([facility]) MDD (major depressive disorder), recurrent episode, moderate (HCC)- Primary Primary insomnia Persistent disorder of initiating or maintaining sleep Erectile dysfunction associated with type 2 diabetes mellitus ([facility]) Type II or unspecified type diabetes mellitus without mention of complication, not stated as uncontrolled Type 2 diabetes mellitus with hyperglycemia, with long-term current use of insulin ([facility]) Benign essential hypertension- Primary Essential hypertension, benign MDD (major depressive disorder), recurrent episode, moderate (HCC) Type 2 diabetes mellitus with polyneuropathy (HCC) Type II or unspecified type diabetes mellitus with neurological manifestations, not stated as uncontrolled Bilateral leg edema Edema Primary insomnia Persistent disorder of initiating or maintaining sleep Type 2 diabetes mellitus with hyperglycemia, with long-term current use of insulin ([facility]) Benign essential hypertension- Primary Essential hypertension, benign MDD (major depressive disorder), recurrent episode, moderate (HCC) Type 2 diabetes mellitus with polyneuropathy (HCC) Type II or unspecified type diabetes mellitus with neurological manifestations, not stated as uncontrolled Bilateral leg edema Edema Primary insomnia Persistent disorder of initiating or maintaining sleep Type 2 diabetes mellitus with hyperglycemia, with long-term current use of insulin ([facility]) Class 3 severe obesity due to excess calories with serious comorbidity and body mass index (BMI) of 45.0 to 49.9 in adult ([facility]) Benign essential hypertension- Primary Essential hypertension, benign MDD (major depressive disorder), recurrent episode, moderate (HCC) Type 2 diabetes mellitus with polyneuropathy (HCC) Type II or unspecified type diabetes mellitus with neurological manifestations, not stated as uncontrolled Bilateral leg edema Edema Type 2 diabetes mellitus with hyperglycemia, with long-term current use of insulin ([facility]) Class 3 severe obesity due to excess calories with serious comorbidity and body mass index (BMI) of 40.0 to 44.9 in adult ([facility]) documented in this encounter [facility] HealthcareEvaluation note* Diagnosis Type 2 diabetes mellitus with hyperglycemia, with long-term current use of insulin (HCC)- Primary Type 2 diabetes mellitus with polyneuropathy (HCC) Type II or unspecified type diabetes mellitus with neurological manifestations, not stated as uncontrolled Benign essential hypertension Essential hypertension, benign Bilateral leg edema Edema Annual physical exam Routine general medical examination at a health care facility Morbid obesity due to excess calories ([facility]) Sinus tachycardia- Primary Other specified cardiac dysrhythmias Type 2 diabetes mellitus with hyperglycemia, with long-term current use of insulin ([facility]) Benign essential hypertension Essential hypertension, benign Viral gastroenteritis Intestinal infection due to other organism, NEC Morbid obesity due to excess calories ([facility]) Benign essential hypertension- Primary Essential hypertension, benign Type 2 diabetes mellitus with polyneuropathy (HCC) Type II or unspecified type diabetes mellitus with neurological manifestations, not stated as uncontrolled Sinus tachycardia Other specified cardiac dysrhythmias Bilateral leg edema Edema Primary insomnia Persistent disorder of initiating or maintaining sleep Type 2 diabetes mellitus with hyperglycemia, with long-term current use of insulin (HCC) MDD (major depressive disorder), recurrent episode, moderate (HCC)- Primary Primary insomnia Persistent disorder of initiating or maintaining sleep Erectile dysfunction associated with type 2 diabetes mellitus (HCC) Type II or unspecified type diabetes mellitus without mention of complication, not stated as uncontrolled Type 2 diabetes mellitus with hyperglycemia, with long-term current use of insulin (HCC) Benign essential hypertension- Primary Essential hypertension, benign MDD (major depressive disorder), recurrent episode, moderate (HCC) Type 2 diabetes mellitus with polyneuropathy (HCC) Type II or unspecified type diabetes mellitus with neurological manifestations, not stated as uncontrolled Bilateral leg edema Edema Primary insomnia Persistent disorder of initiating or maintaining sleep Type 2 diabetes mellitus with hyperglycemia, with long-term current use of insulin (HCC) Benign essential hypertension- Primary Essential hypertension, benign MDD (major depressive disorder), recurrent episode, moderate (HCC) Type 2 diabetes mellitus with polyneuropathy (HCC) Type II or unspecified type diabetes mellitus with neurological manifestations, not stated as uncontrolled Bilateral leg edema Edema Primary insomnia Persistent disorder of initiating or maintaining sleep Type 2 diabetes mellitus with hyperglycemia, with long-term current use of insulin ([facility]) Class 3 severe obesity due to excess calories with serious comorbidity and body mass index (BMI) of 45.0 to 49.9 in adult ([facility]) Benign essential hypertension- Primary Essential hypertension, benign MDD (major depressive disorder), recurrent episode, moderate ([facility]) Type 2 diabetes mellitus with polyneuropathy ([facility]) Type II or unspecified type diabetes mellitus with neurological manifestations, not stated as uncontrolled Bilateral leg edema Edema Type 2 diabetes mellitus with hyperglycemia, with long-term current use of insulin ([facility]) Class 3 severe obesity due to excess calories with serious comorbidity and body mass index (BMI) of 40.0 to 44.9 in adult ([facility]) Type 1 diabetes mellitus with hyperglycemia ([facility])- Primary Encounter for dietary consultation Vitamin D deficiency Encounter for fitting or adjustment of insulin pump Fitting and adjustment of insulin pump Insulin pump in place Insulin pump status Insulin long-term use ([facility]) Encounter for long-term (current) use of insulin High risk medication use documented in this encounter [facility] HealthcareEvaluation note* Diagnosis Type 2 diabetes mellitus with hyperglycemia, with long-term current use of insulin ([facility])- Primary Type 2 diabetes mellitus with polyneuropathy ([facility]) Type II or unspecified type diabetes mellitus with neurological manifestations, not stated as uncontrolled Benign essential hypertension Essential hypertension, benign Bilateral leg edema Edema Annual physical exam Routine general medical examination at a health care facility Morbid obesity due to excess calories ([facility]) Sinus tachycardia- Primary Other specified cardiac dysrhythmias Type 2 diabetes mellitus with hyperglycemia, with long-term current use of insulin ([facility]) Benign essential hypertension Essential hypertension, benign Viral gastroenteritis Intestinal infection due to other organism, NEC Morbid obesity due to excess calories ([facility]) Benign essential hypertension- Primary Essential hypertension, benign Type 2 diabetes mellitus with polyneuropathy ([facility]) Type II or unspecified type diabetes mellitus with neurological manifestations, not stated as uncontrolled Sinus tachycardia Other specified cardiac dysrhythmias Bilateral leg edema Edema Primary insomnia Persistent disorder of initiating or maintaining sleep Type 2 diabetes mellitus with hyperglycemia, with long-term current use of insulin ([facility]) MDD (major depressive disorder), recurrent episode, moderate ([facility])- Primary Primary insomnia Persistent disorder of initiating or maintaining sleep Erectile dysfunction associated with type 2 diabetes mellitus (HCC) Type II or unspecified type diabetes mellitus without mention of complication, not stated as uncontrolled Type 2 diabetes mellitus with hyperglycemia, with long-term current use of insulin ([facility]) Benign essential hypertension- Primary Essential hypertension, benign MDD (major depressive disorder), recurrent episode, moderate (HCC) Type 2 diabetes mellitus with polyneuropathy (HCC) Type II or unspecified type diabetes mellitus with neurological manifestations, not stated as uncontrolled Bilateral leg edema Edema Primary insomnia Persistent disorder of initiating or maintaining sleep Type 2 diabetes mellitus with hyperglycemia, with long-term current use of insulin (HCC) Benign essential hypertension- Primary Essential hypertension, benign MDD (major depressive disorder), recurrent episode, moderate (HCC) Type 2 diabetes mellitus with polyneuropathy (HCC) Type II or unspecified type diabetes mellitus with neurological manifestations, not stated as uncontrolled Bilateral leg edema Edema Primary insomnia Persistent disorder of initiating or maintaining sleep Type 2 diabetes mellitus with hyperglycemia, with long-term current use of insulin ([facility]) Class 3 severe obesity due to excess calories with serious comorbidity and body mass index (BMI) of 45.0 to 49.9 in adult ([facility]) Benign essential hypertension- Primary Essential hypertension, benign MDD (major depressive disorder), recurrent episode, moderate (HCC) Type 2 diabetes mellitus with polyneuropathy (HCC) Type II or unspecified type diabetes mellitus with neurological manifestations, not stated as uncontrolled Bilateral leg edema Edema Type 2 diabetes mellitus with hyperglycemia, with long-term current use of insulin ([facility]) Class 3 severe obesity due to excess calories with serious comorbidity and body mass index (BMI) of 40.0 to 44.9 in adult ([facility]) Type 1 diabetes mellitus with hyperglycemia ([facility])- Primary Encounter for dietary consultation Vitamin D deficiency Encounter for fitting or adjustment of insulin pump Fitting and adjustment of insulin pump Insulin pump in place Insulin pump status Insulin long-term use ([facility]) Encounter for long-term (current) use of insulin High risk medication use Class 3 severe obesity due to excess calories with serious comorbidity and body mass index (BMI) of 45.0 to 49.9 in adult ([facility]) Hypoglycemia Hypoglycemia, unspecified documented in this encounter [facility] HealthcareReason for referral (narrative)No reason for referral information availableK[facility] Work Phone: Summary Purpose Family History No Family History Records FoundNo Family History Records FoundNo Family History Records FoundNo Family History Records FoundNo Family History Records FoundNo Family History Records Found Advance Directives No Advanced Directives Records Found Advance Directive Response Recorded Date/ Time Advance Directives No April 13 2:17pm Chief Complaint and Reason for Visit Chief Complaint mental eval Reason for Visit Suicidal ideation Chief Complaint mental eval mental eval Reason for Visit Diabetes HTN (hypertension) Hyperlipidemia Morbid obesity with BMI of 40.0-44.9, adult Suicidal ideation Chief Complaint Admit Date yearly follow up March 30, 2025 9:13a m Reason for Referral Specialty Diagnoses / Procedures Referred By Contac t Referred To Contact Diagnoses Type 2 diabetes mellitus with hyperglycemia, with long-term current use of insulin ([facility]) Loy Tan MD [address] [place] [address] Referral ID Status Reason Start Date Expiration Date V isits Requested Visits Authorized [id number] Pending Review 06/11/2024 12/08/2024 1 1 Additional Source Comments (unrecognized sect ion and content) No Status Records FoundNo Status Records FoundNo Status Records FoundNo Status Records FoundNo Status Records FoundNo Status Records Found INFORMATION SOURCE (unrecogn ized section and content) DATE CREATED AUTHOR 04/22/2020 [facility] DATE CREATED AUTHOR AUTHOR'S ORGANIZ ATION [facility] DATE CREATED AUTHOR AUTHOR'S ORGANIZ ATION 08/15/2024 [facility] DATE CREATED AUTHOR AUTHOR'S ORGANIZ ATION 11/23/2024 [facility] DATE CREATED AUTHOR AUTHOR'S ORGANIZ ATION 01/10/2025 [facility] DATE CREATED AUTHOR AUTHOR'S ORGANIZ ATION 06/12/2025 [facility] [employer] Care Teams (unrecognized sec tion and content) Team Status: Active Member Role Status Dates Loy Tan MD Primary Care Provider Active Team Status: Inactive Member Role Status Dates Loy Tan MD Primary Care Provider Active S tart: May 25, 2024 End: May 28, 2024 Kellie Rivero DO Emergency Provider Active Sta rt: May 25, 2024 End: May 28, 2024 Sam Moise DO RES Active Start: May 25, 2024 End: May 28, 2024 Dustin Painter MD Admit Provide r, Attending Provider Active Start: May 25, 2024 End: May 28, 2024 Casandra Roa , TED Other Provider Active Star t: May 25, 2024 End: May 28, 2024 Leonor Sutherland , TED Other Provider Active Start : May 25, 2024 End: May 28, 2024 Cynthia Harris RN Other Provider Active Star t: May 25, 2024 End: May 28, 2024 Ama Douglas RN Other Provider Active Start: [facility] 2023 End: May 28, 2024 Chelle King RN Other Provider Active Start: [facility] 2023 End: May 28, 2024 Myrtle Lora MD Other Provider Active Start: May 25, 2024 End: May 28, 2024 Dillon Stein DO Other Provider Active Start : May 25, 2024 End: May 28, 2024 Alex Woodruff MD Other Provider Active Start : May 25, 2024 End: May 28, 2024 Jeronimo Haley DO Other Provider Active Start: May 25, 2024 End: May 28, 2024 Raman Mendoza MD Other Provider Active Start: May 25, 2024 End: May 28, 2024 Mena Saucedo MD Other Provider Active Start : May 25, 2024 End: May 28, 2024 Mnih Serrano MD Other Provider Active Start: [facility] 2023 End: May 28, 2024 Mai Kelsey APRN Other Provider Active Start: May 25, 2024 End: May 28, 2024 Frederick Jorge MD Other Provider Active Start: May 25, 2024 End: May 28, 2024 Issac Ricardo MD Other Provider Active Start: [facility] 2023 End: May 28, 2024 Donald Zhu MD Other Provider Active Start: May 25, 2024 End: May 28, 2024 Paul Almonte MD Other Provider Active Start: May 25, 2024 End: May 28, 2024 Patrick Perez DO Other Provider Active Start: May 25, 2024 End: May 28, 2024 Kwesi Zamora MD Other Provider Active Start: 2023 End: May 28, 2024 Sj Shaikh MD Other Provider Active Start: Apr End: May 28, 2024 Khloe Eubanks , [employer]-C Other Provider Active St art: May 25, 2024 End: May 28, 2024 Libra Villagran APRN Other Provider Active Star t: May 25, 2024 End: May 28, 2024 Dom Ulrich MD Other Provider Active Start: May 25, 2024 End: May 28, 2024 Hesham Trevino MD Other Provider Active Start: 2023 End: May 28, 2024 Gregorio Sweeney MD Other Provider Active Start: Apr End: May 28, 2024 Veronica Masters MD Other Provider Active Star t: May 25, 2024 End: May 28, 2024 Markie Danielle MD Other Provider Active Start: [facility] 2023 End: May 28, 2024 Izabel Gore DO Other Provider Active Start: 2023 End: May 28, 2024 Judah Ma DO Other Provider Active Start : May 25, 2024 End: May 28, 2024 Elidia Land APRN Other Provider Active Start: May 25, 2024 End: May 28, 2024 Frank Olivarez DO Other Provider Active Start: May 25, 2024 End: May 28, 2024 Desire Maciel MD Other Provider Active Sta rt: May 25, 2024 End: May 28, 2024 Valery Angel APRN Other Provider Active Start : May 25, 2024 End: May 28, 2024 Rosa Wilson APRN Other Provider Active St art: May 25, 2024 End: May 28, 2024 Clementine Smith MD Other Provider Active Start: [facility] 2023 End: May 28, 2024 Osei Joaquin MD Other Provider Active S tart: May 25, 2024 End: May 28, 2024 Anthony Crocker , Other Provider Active Star t: May 25, 2024 End: May 28, 2024 Armond Ahmadi DO Other Provider Active Start: May 25, 2024 End: May 28, 2024 Jalil Sweeney MD Other Provider Active Start: May 25, 2024 End: May 28, 2024 Jose Maria Vargas MD Other Provider Active Start: May 25, 2024 End: May 28, 2024 Arianna Heck APRN Other Provider Active Star t: May 25, 2024 End: May 28, 2024 Taylor Winter MD Other Provider Active Start: [facility] 2023 End: May 28, 2024 Shen Lacy MD Other Provider Active Start: [facility] 2023 End: May 28, 2024 Malorie Ricci RN Other Provider Active Start: [facility] 2023 End: May 28, 2024 Team Status: Active Member Role Status Dates Loy Tan MD Primary Care Provider Active S tart: May 26, 2024 Kellie Rivero DO Emergency Provider Active Sta rt: May 26, 2024 Sam Moise DO RES Active Start: May 26, 2024 Dustin Painter MD Admit Provide r, Attending Provider, Other Provider Active Start: May 26, 2024 Casandra Roa , TED Other Provider Active Star t: May 26, 2024 Leonor Sutherland , TED Other Provider Active Start : May 26, 2024 Cynthia Harris , TED Other Provider Active Star t: May 26, 2024 Ama Dogulas , TED Other Provider Active Start: A ugust 2023 Chelle King , TED Other Provider Active Start: Au [facility] 2023 Myrtle Lora MD Other Provider Active Start: May 26, 2024 Dillon Stein DO Other Provider Active Start : May 26, 2024 Alex Woodruff MD Other Provider Active Start : May 26, 2024 Jeronimo Haley DO Other Provider Active Start: May 26, 2024 Raman Mendoza MD Other Provider Active Start: May 26, 2024 Mena Saucedo MD Other Provider Active Start : May 26, 2024 Minh Serrano MD Other Provider Active Start: [facility] 2023 Mai Kelsey APRN Other Provider Active Start: May 26, 2024 Frederick Jorge MD Other Provider Active Start: May 26, 2024 Issac Ricardo MD Other Provider Active Start: [facility] 2023 Donald Zhu MD Other Provider Active Start: May 26, 2024 Paul Almonte MD Other Provider Active Start: May 26, 2024 Patrick Perez DO Other Provider Active Start: May 26, 2024 Kwesi Zamora MD Other Provider Active Start: 2023 Sj Shaikh MD Other Provider Active Start: Apr Khloe Eubanks [employer]-C Other Provider Active St art: May 26, 2024 Libra Villagran APRN Other Provider Active Star t: May 26, 2024 Dom Ulrich MD Other Provider Active Start: May 26, 2024 Hesham Trevino MD Other Provider Active Start: [facility] 2023 Gregorio Sweeney MD Other Provider Active Start: Apr Veronica Masters MD Other Provider Active Star t: May 26, 2024 Markie Danielle MD Other Provider Active Start: [facility] 2023 Izabel Gore DO Other Provider Active Start: [facility] 2023 Judah Ma DO Other Provider Active Start : May 26, 2024 Elidia Land APRN Other Provider Active Start: May 26, 2024 Frank Olivarez DO Other Provider Active Start: May 26, 2024 Desire Maciel MD Other Provider Active Sta rt: May 26, 2024 Valery Angel APRN Other Provider Active Start : May 26, 2024 Rosa Wilson APRN Other Provider Active St art: May 26, 2024 Clementine Smith MD Other Provider Active Start: A [facility] 2023 Osei Joaquin MD Other Provider Active S tart: May 26, 2024 Anthony Crocker , Other Provider Active Star t: May 26, 2024 Armond Ahmadi DO Other Provider Active Start: May 26, 2024 Jalil Sweeney MD Other Provider Active Start: May 26, 2024 Jose Maria Vargas MD Other Provider Active Start: May 26, 2024 Arianna Heck APRN Other Provider Active Star t: May 26, 2024 Taylor Winter MD Other Provider Active Start: A ust 2023 Shen Lacy MD Other Provider Active Start: [facility] 2023 Malorie Ricci RN Other Provider Active Start: A [facility] 2023 Team Status: Active Member Role Status Fernanda Tan MD Primary Care Provider Active S tart: May 25, 2024 Kellie Rivero DO Emergency Provider Active Sta rt: May 25, 2024 Sam Moise DO RES Active Start: May 25, 2024 Dustin Painter MD Admit Provide r, Attending Provider Active Start: May 25, 2024 Casandra Roa , TED Other Provider Active Star t: May 25, 2024 Leonor Sutherland , TED Other Provider Active Start : May 25, 2024 Cynthia Harris , TED Other Provider Active Star t: May 25, 2024 Ama Douglas , TED Other Provider Active Start: A [facility] 2023 Chelle King , TED Other Provider Active Start: [facility] 2023 Myrtle Lora MD Other Provider Active Start: May 25, 2024 Dillon Stein DO Other Provider Active Start : May 25, 2024 Alex Woodruff MD Other Provider Active Start : May 25, 2024 Jeronimo Haley DO Other Provider Active Start: May 25, 2024 Raman Mendoza MD Other Provider Active Start: May 25, 2024 Mena Saucedo MD Other Provider Active Start : May 25, 2024 Minh Serrano MD Other Provider Active Start: A [facility] 2023 Mai Kelsey APRN Other Provider Active Start: May 25, 2024 Frederick Jorge MD Other Provider Active Start: May 25, 2024 Issac Ricardo MD Other Provider Active Start: A ust 2023 Donald Zhu MD Other Provider Active Start: May 25, 2024 Paul Almonte MD Other Provider Active Start: May 25, 2024 Patrick Perez DO Other Provider Active Start: May 25, 2024 Kwesi Zamora MD Other Provider Active Start: [facility] 2023 Sj Shaikh MD Other Provider Active Start: Apr Khloe Eubanks , [employer]-C Other Provider Active St art: May 25, 2024 Libra Villagran APRN Other Provider Active Star t: May 25, 2024 Dom Ulrich MD Other Provider Active Start: May 25, 2024 Hesham Trevino MD Other Provider Active Start: [facility] 2023 Gregorio Sweeney MD Other Provider Active Start: Apr Veronica Masters MD Other Provider Active Star t: May 25, 2024 Markie Danielle MD Other Provider Active Start: A [facility] 2023 Izabel Gore DO Other Provider Active Start: [facility] 2023 Judah Ma DO Other Provider Active Start : May 25, 2024 Elidia Land APRN Other Provider Active Start: May 25, 2024 Frank Olivarez DO Other Provider Active Start: May 25, 2024 Desire Maciel MD Other Provider Active Sta rt: May 25, 2024 Valery Angel APRN Other Provider Active Start : May 25, 2024 Rosa Wilson APRN Other Provider Active St art: May 25, 2024 Clementine Smith MD Other Provider Active Start: A ugust 2023 Osei Joaquin MD Other Provider Active S tart: May 25, 2024 Anthony Crocker , Other Provider Active Star t: May 25, 2024 Armond Ahmadi , Other Provider Active Start: May 25, 2024 Jalil Sweeney MD Other Provider Active Start: May 25, 2024 Jos eMaria Vargas MD Other Provider Active Start: May 25, 2024 Arianna Heck APRN Other Provider Active Star t: May 25, 2024 Taylor Winter MD Other Provider Active Start: A ugust 2023 Shne Lacy MD Other Provider Active Start: [facility] 2023 Malorie Ricci RN Other Provider Active Start: A ugust 2023 Psychologists Relationship Specialty Start Date End Date Loy Tan MD [address] [place] [phone] PCP - General Family Medicine 11/05/23 Psychologists Relationship Specialty Start Date End Date Loy Tan MD [address] [place] [phone] PCP - General Family Medicine 11/05/23 Psychologists Relationship Specialty Start Date End Date Loy Tan MD [address] [place] [phone] PCP - General Family Medicine 11/05/23 Psychologists Relationship Specialty Start Date End Date Loy Tan MD [address] [place] [phone] PCP - General Family Medicine 11/05/23 Psychologists Relationship Specialty Start Date End Date Loy Tan MD [address] [place] [phone] PCP - General Family Medicine 11/05/23 Psychologists Relationship Specialty Start Date End Date Loy Tan MD [address] [place] [phone] PCP - General Family Medicine 11/05/23 Psychologists Relationship Specialty Start Date End Date Loy Tan MD [address] [place] [phone] PCP - General Family Medicine 11/05/23 Psychologists Relationship Specialty Start Date End Date Loy Tan MD [address] [place] [phone] PCP - General Family Medicine 11/05/23 Psychologists Relationship Specialty Start Date End Date Loy Tan MD [address] [place] [phone] PCP - General Family Medicine 11/05/23 Psychologists Relationship Specialty Start Date End Date Loy Tan MD [address] [place] [phone] PCP - General Family Medicine 11/05/23 Psychologists Relationship Specialty Start Date End Date Loy Tan MD [address] [place] [phone] PCP - General Family Medicine 11/05/23 Team Status: Inactive Member Role Status Dates Loy Tan MD Primary Care Provider Active S tart: March 30, 2025 End: March 30, 2025 Anayeli Cabrera DO Attending Provider Active Sta rt: March 30, 2025 End: March 30, 2025 Psychologists Relationship Specialty Start Date End Date Loy Tan MD [address] [place] [phone] PCP - General Family Medicine 11/05/23 Psychologists Relationship Specialty Start Date End Date Loy Tan MD [address] [place] [phone] PCP - General Family Medicine 11/05/23 Psychologists Relationship Specialty Start Date End Date Loy Tan MD [address] [place] [phone] PCP - General Family Medicine 11/05/23 Psychologists Relationship Specialty Start Date End Date Loy Tan MD [address] [place] [phone] PCP - General Family Medicine 11/05/23 Psychologists Relationship Specialty Start Date End Date Loy Tan MD [address] [place] [phone] PCP - General Family Medicine 11/05/23 Psychologists Relationship Specialty Start Date End Date Loy Tan MD [address] [place] [phone] PCP - General Family Medicine 11/05/23 Psychologists Relationship Specialty Start Date End Date Loy Tan MD PCP - General Family Medicine 11/05/23 Psychologists Relationship Specialty Start Date End Date Loy Tan MD PCP - General Family Medicine 11/05/23 Reason for Visit (unrecogniz ed section and content) Reason Onset Date Comments Med Refill 07/28/2024 Reason Comments Follow-up 3m [facility] [place] [place] hospital f/u p Reason Comments Diabetes Follow-up Reason Comments Follow-up 3 m Reason Onset Date Comments Med Refill 06/02/2024 Reason Onset Date Comments Med Refill 11/09/2024 Reason Comments Diabetes Follow-up LAB Reason Comments Med Refill Reason Comments Med Refill Reason Comments Follow-up 3m Reason Onset Date Comments Advice Only 04/22/2025 Reason Onset Date Comments Med Refill 05/17/2025 Reason Onset Date Comments Med Refill 05/28/2025 Prior Authorization 05/28/2025 Reason Comments Diabetes Follow-up NEW PUMP CHECK Goals (unrecognized section and content) Goals may be documented in a n alternate section FOR RECORDS PERTAINING TO PATIENTS WHO ARE OR HAVE BEEN ENROLLED IN A CHEMICAL DEPENDENCY/SUBSTANCEABUSE PROGRAM, SOME INFORMATION MAY BE OMITTED. This clinical summary was aggregated from multiple sources. Caution should be exercised in using it in the provision of clinical care. This summary normalizes information from multiple sources, and as a consequence, information in this document may materially change the coding, format and clinical context of patient data. In addition, data may be omitted in some cases. CLINICAL DECISIONS SHOULD BE BASED ON THE PRIMARY CLINICAL RECORDS. [employer] provides no warranty or guarantee of the accuracy or completeness of information in this document.
== END 2025-06-25 07:52 | disposition home or self-care (01) ==
LOC: ER 07:41
PROVIDERS: Emergency Provider Emergency Medicine; PCP Family Medicine
DX: L03.211 Cellulitis of face (principal)
CPT/HCPCS: 99283